=== PATIENT | female | born 1935 | race Caucasian/White ===

== ENCOUNTER 2017-03-30 18:44 | Emergency (ER) | payer OTHER ==
[~2017-03-30] VITALS: Ht 152.4 cm; Wt 94.3 kg
[~2017-03-30 18:44] MED LIST: AGG PO; ALUMSUS2 PO; ATEN-175 PO; ATV/1 PO; CHOLTAB3 PO; CLCC1250 PO; FELO5TAB PO; FURO20TA PO; LOSA1TAB38 PO; MCRK20 PO; MISCCAP80 PO; PRLSR20 PO; SIMV40TA2 PO
[2017-03-30 18:54] VITALS: TEMP 36.9; Ht 152.4 cm; Wt 94.3 kg
[2017-03-30] MEDS ORDERED: MoRPHine SULFATE 4 MG/ML 1 ML CARP\\VIAL IV STA (19:12)
[2017-03-30] MEDS ORDERED: ONDANSETRON INJ 2 MG/ML 2 ML VIAL IV STA (19:12)
[2017-03-30 19:24] LABS: BASO % 0.5 %; BASO ABS # 0.05 K/uL (0-0.2); COMPLETE YES; EOS % 1.3 %; IG% 0.2 %; LYMPH % 27.8 %; LYMPH ABS # 2.87 K/uL (1.2-3.4); MEAN CELL VOLUME 92.9 fL (80-100); MEAN CORPUSCULAR HEMOGLOBIN 31.2 pg (25-34); MEAN CORPUSCULAR HGB CONC 33.6 g/dl (32-36); MEAN PLATELET VOLUME 10.1 fL (7.4-10.4); MONO % 7.5 %; NEUT % 62.7 %; PLATELET COUNT 280 K/uL (130-400); RED BLOOD COUNT 4.52 M/uL (4.2-5.4); WHITE BLOOD COUNT 10.33 K/uL (4.8-10.8)
[2017-03-30 19:29] LABS: URINE APPEARANCE CLEAR (CLEAR); URINE BILIRUBIN NEG (NEG); URINE COLOR YELLOW; URINE EPITHELIAL CELL AUTO >30 /lpf (0-5); URINE NITRITE NEG (NEG); URINE SPECIFIC GRAVITY 1.024 (1.000-1.030); UROBILINOGEN NEG (NEG)
[2017-03-30 19:31] LABS: ALT/SGPT 15 U/L (12-78); AST/SGOT 17 U/L (15-37); BLOOD UREA NITROGEN 18 mg/dl (7-18); BUN/CREATININE RATIO 14.7 (10-20); CALCIUM 9.8 mg/dl (8.5-10.1); CARBON DIOXIDE 26 mmol/L (21-32); CHLORIDE 101 mmol/L (98-107); GLUCOSE 135 mg/dl (70-99); POTASSIUM 3.6 mmol/L (3.5-5.1); SODIUM 135 mmol/L (136-145)
[2017-03-30 19:34] LABS: ALKALINE PHOSPHATASE 58 U/L (45-117)
[2017-03-30 19:35] LABS: MANUAL MICROSCOPIC REQUIRED? NO; REVIEW REQ? NO
[2017-03-30] MEDS ORDERED: OYST500T47 PO (19:41)
[2017-03-30] MEDS ORDERED: POTA20TA13 PO (19:44)
[2017-03-30] MEDS ORDERED: CHOLTAB11 PO (19:50)
--- NOTE | 2017-03-30 20:21 | DIAGNOSTIC IMAGING REPORT ---
ABD/PELVIS WITHOUT FOR STONE CLINICAL HISTORY: 81 years-old Female presenting with abd pain/urniary symptoms eval for stone/obstruction. TECHNIQUE: Multidetector CT of the abdomen and pelvis was performed without the use of intravenous contrast. IV contrast: None. A dose lowering technique was used consistent with the principles of ALARA (as low as reasonably achievable). COMPARISON: 03/10/2016. CT DOSE (mGy.cm): The estimated cumulative dose is 1430.35 mGy.cm. FINDINGS: H[employer] Consultant topogram: Unremarkable. Lung bases: Large hiatal hernia unchanged in configuration. No evidence of volvulus. Lung bases otherwise clear. Left atrial enlargement of the heart. Coronary artery calcification. No pericardial or pleural effusion. Liver: Macronodular contour of the liver, not significantly changed from prior and possibly suggestive of cirrhosis. Normal density. Biliary: No gross biliary ductal dilatation allowing for noncontrast technique. Gallbladder contains gallstones. Pancreas: Mild to moderate parenchymal atrophy. Spleen: Normal. Adrenal glands: Normal. Kidneys and ureters: Normal. No hydronephrosis. Normal ureters. Bladder: Incompletely evaluated secondary to underdistention. Pelvic organs: Uterus and ovaries normal. Bowel: Normal. No bowel obstruction. Large hiatal hernia. Peritoneal cavity: No free fluid or intraperitoneal gas. Vasculature: Atherosclerosis of the normal caliber abdominal aorta. Lymph nodes: No gross lymphadenopathy allowing for noncontrast technique. Abdominal wall: Normal. Musculoskeletal: Degenerative changes of the spine. Degenerative changes of the sacroiliac joints and pubic symphysis also noted. IMPRESSION: 1. No nephrolithiasis. No hydronephrosis. 2. Nodular contour of the liver suggestive of cirrhosis. 3. Cholelithiasis. No evidence of cholecystitis. 4. Large hiatal hernia. 5. Left atrial enlargement. Electronically signed by: Modesto Miller M.D. 03/30/2017 8:20 PM Dictated Date/Time: 03/30/2017 8:14 PM
[2017-03-30] MEDS ORDERED: SULFAMETHOXAZOLE/TRIMETHOPRIM DS 800/160MG TAB PO STA (20:27)
[2017-03-30] MEDS ORDERED: SULF800T23 PO (20:52)
[2017-03-30 20:57] VITALS: BP 136/66; PULSE 78; O2SAT 94
[2017-03-30] MEDS ORDERED: SEPTRA DS HOME PACK 1 EA VIAL PO ONE (21:00)
--- NOTE | 2017-03-30 23:58 | EMERGENCY ROOM VISIT NOTE ---
History Report prepared by Olamide: Hilda Madrid Under the Supervision of: Dr. Francesco Rothman M.D. First contact with patient: 19:01 Chief Complaint: URINARY SYMPTOMS Stated Complaint: ABDOMINAL PAIN/URINARY SX Nursing Triage Summary: dysuria, frequent urge, rectal and vaginal burining started at 0400 with associated nausea, negative vomiting, loose stoos. History of Present Illness The patient is an 81 year old female who presents to the Emergency Room with complaints of an episode of lower abdominal pain starting 19 hours ago. The patient states that the pain feels like cramping. She reports that she feels like she has to urinate all the time and when she does urinate, it hughes. The patient states that when she makes a bowel movement it feels like her whole stomach is falling out. She denies any fever. She notes that she has nausea, but no vomiting. She notes she has just been dry heaving. The patient denies diarrhea. Source of History: patient Onset: 19 hours ago Position: abdomen (lower) Quality: cramping Timing: other (episode) Modifying Factors (Worsening): other (bowel movements) Associated Symptoms: + nausea, + urinary symptoms, No fevers, No vomiting, No diarrhea Note: The patient complains of dry heaving. Review of Systems See HPI for pertinent positives & negatives. A total of 10 systems reviewed and were otherwise negative. 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 (8) MAL KRISTEN SIGMOID COLON (9) NONRUPT CEREBRAL ANEURYM (10) PERSONAL HX OF TIA,& CEREBRAL INFARCTION W/OUT RES DEFICITS Family History Noncontribuatry due to age Social History Smoking Status: Never Smoker Alcohol Use: occasionally Drug Use: none Marital Status: Occupation Status: retired Current/Historical Medications Scheduled Aluminum/Magnesium/Simeth (Maalox Max Susp), 5 ML PO PRN Aspirin-Dipyridamole 25MG/200MG (Aggrenox 200MG/25MG), 1 CAP PO BID Atenolol (Tenormin), 100 MG PO HS Cholecalciferol (D-5000), 5,000 UNITS PO DAILY Felodipine (Plendil), 5 MG PO DAILY Furosemide (Lasix), 20 MG PO DAILY Losartan Potassium (Cozaar), 100 MG PO DAILY Omeprazole (Prilosec), 20 MG PO HS Oyster Shell (Calcium), 500 MG PO DAILY Potassium Chloride Microencaps (Potassium Chloride Er), 40 MEQ PO DAILY Probiotic Product (Probiotic), 1 CAP PO DAILY Simvastatin (Zocor), 40 MG PO HS Sulfa/Trimethoprim (Bactrim Ds 800MG/160MG), 1 TAB PO BID Scheduled PRN Lorazepam (Ativan), 1 MG PO TID PRN for Anxiety Allergies Coded Allergies: Hydralazine (Verified Allergy, Unknown, HYPOTENSION, 03/30/17) Lactose Intolerance (Verified Adverse Reaction, Mild, GI UPSET, 03/30/17) Physical Exam Vital Signs Date Time Temp Pulse Resp B/P (MAP) Pulse Ox O2 Delivery O2 Flow Rate FiO2 03/30/17 20:57 78 18 136/66 94 03/30/17 20:00 74 20 138/66 94 03/30/17 18:54 36.9 84 16 149/73 97 Room Air Physical Exam Constitutional: Vital signs reviewed. Eyes: Pupils are equal round reactive to light. Conjunctiva are noninjected. ENT: Pharynx is clear without erythema or exudate. Mucous membranes are moist. Neck supple without meningeal signs. Respiratory: Clear to auscultation bilaterally. Breath sounds are equal bilaterally. Cardiovascular: Regular rate and rhythm. No rubs or gallops. GI: Soft, nondistended. Diffuse tenderness without guarding. Bowel sounds are present. Musculoskeletal: No peripheral edema. No lower extremity tenderness. Integumentary: No cyanosis. Neurological: The patient is awake and alert. No focal deficits. Psychiatric: Normal affect. Medical Decision & Procedures ER Provider Diagnostic Interpretation: Radiology results as stated below per my review and the radiologist's interpretation: ABD/PELVIS WITHOUT FOR STONE CLINICAL HISTORY: 81 years-old Female presenting with abd pain/urniary symptoms eval for stone/obstruction. TECHNIQUE: Multidetector CT of the abdomen and pelvis was performed without the use of intravenous contrast. IV contrast: None. A dose lowering technique was used consistent with the principles of ALARA (as low as reasonably achievable). COMPARISON: 03/10/2016. CT DOSE (mGy.cm): The estimated cumulative dose is 1430.35 mGy.cm. FINDINGS: Manager Development topogram: Unremarkable. Lung bases: Large hiatal hernia unchanged in configuration. No evidence of volvulus. Lung bases otherwise clear. Left atrial enlargement of the heart. Coronary artery calcification. No pericardial or pleural effusion. Liver: Macronodular contour of the liver, not significantly changed from prior and possibly suggestive of cirrhosis. Normal density. Biliary: No gross biliary ductal dilatation allowing for noncontrast technique. Gallbladder contains gallstones. Pancreas: Mild to moderate parenchymal atrophy. Spleen: Normal. Adrenal glands: Normal. Kidneys and ureters: Normal. No hydronephrosis. Normal ureters. Bladder: Incompletely evaluated secondary to underdistention. Pelvic organs: Uterus and ovaries normal. Bowel: Normal. No bowel obstruction. Large hiatal hernia. Peritoneal cavity: No free fluid or intraperitoneal gas. Vasculature: Atherosclerosis of the normal caliber abdominal aorta. Lymph nodes: No gross lymphadenopathy allowing for noncontrast technique. Abdominal wall: Normal. Musculoskeletal: Degenerative changes of the spine. Degenerative changes of the sacroiliac joints and pubic symphysis also noted. IMPRESSION: 1. No nephrolithiasis. No hydronephrosis. 2. Nodular contour of the liver suggestive of cirrhosis. 3. Cholelithiasis. No evidence of cholecystitis. 4. Large hiatal hernia. 5. Left atrial enlargement. Electronically signed by: Modesto Miller M.D. 03/30/2017 8:20 PM Dictated Date/Time: 03/30/2017 8:14 PM Laboratory Results 03/30/17 00:00 Red Blood Count 4.52, Mean Corpuscular Volume 92.9, Mean Corpuscular Hemoglobin 31.2, Mean Corpuscular Hemoglobin Concent 33.6, Mean Platelet Volume 10.1, Neutrophils (%) (Auto) 62.7, Lymphocytes (%) (Auto) 27.8, Monocytes (%) (Auto) 7.5, Eosinophils (%) (Auto) 1.3, Basophils (%) (Auto) 0.5, Neutrophils # (Auto) 6.49, Lymphocytes # (Auto) 2.87, Monocytes # (Auto) 0.77, Eosinophils # (Auto) 0.13, Basophils # (Auto) 0.05 03/30/17 00:00 Test 8/26/17 00:00 White Blood Count 10.33 K/uL (4.8-10.8) Red Blood Count 4.52 M/uL (4.2-5.4) Hemoglobin 14.1 g/dL (12.0-16.0) Hematocrit 42.0 % (37-47) Mean Corpuscular Volume 92.9 fL (80-100) Mean Corpuscular Hemoglobin 31.2 pg (25-34) Mean Corpuscular Hemoglobin Concent 33.6 g/dl (32-36) Platelet Count 280 K/uL (130-400) Mean Platelet Volume 10.1 fL (7.4-10.4) Neutrophils (%) (Auto) 62.7 % Lymphocytes (%) (Auto) 27.8 % Monocytes (%) (Auto) 7.5 % Eosinophils (%) (Auto) 1.3 % Basophils (%) (Auto) 0.5 % Neutrophils # (Auto) 6.49 K/uL (1.4-6.5) Lymphocytes # (Auto) 2.87 K/uL (1.2-3.4) Monocytes # (Auto) 0.77 K/uL (0.11-0.59) Eosinophils # (Auto) 0.13 K/uL (0-0.5) Basophils # (Auto) 0.05 K/uL (0-0.2) RDW Standard Deviation 44.0 fL (36.4-46.3) RDW Coefficient of Variation 12.9 % (11.5-14.5) Immature Granulocyte % (Auto) 0.2 % Immature Granulocyte # (Auto) 0.02 K/uL (0.00-0.02) Urine Color YELLOW Urine Appearance CLEAR (CLEAR) Urine pH 5.0 (4.5-7.5) Urine Specific [place] 1.024 (1.000-1.030) Urine Protein NEG (NEG) Urine Glucose (UA) NEG (NEG) Urine Ketones NEG (NEG) Urine Occult Blood NEG (NEG) Urine Nitrite NEG (NEG) Urine Bilirubin NEG (NEG) Urine Urobilinogen NEG (NEG) Urine Leukocyte Esterase MODERATE (NEG) Urine WBC (Auto) >30 /hpf (0-5) Urine RBC (Auto) 0-4 /hpf (0-4) Urine Hyaline Casts (Auto) 1-5 /lpf (0-5) Urine Epithelial Cells (Auto) >30 /lpf (0-5) Urine Bacteria (Auto) NEG (NEG) Anion Gap 8.0 mmol/L (3-11) Est Creatinine Clear Calc Drug Dose 36.5 ml/min Estimated GFR () 48.4 Estimated GFR (Non- 41.8 BUN/Creatinine Ratio 14.7 (10-20) Calcium Level 9.8 mg/dl (8.5-10.1) Total Bilirubin 0.4 mg/dl (0.2-1) Direct Bilirubin < 0.1 mg/dl (0-0.2) Aspartate Amino Transf (AST/SGOT) 17 U/L (15-37) Alanine Aminotransferase (ALT/SGPT) 15 U/L (12-78) Alkaline Phosphatase 58 U/L (45-117) Total Protein 8.2 gm/dl (6.4-8.2) Albumin 3.5 gm/dl (3.4-5.0) Lipase 85 U/L (73-393) Laboratory results as reviewed by me. Medications Administered Medications (Trade) Dose Ordered Sig/Cornelio Route Start Time Stop Time Status Last Admin Dose Admin Morphine Sulfate (MoRPHine SULFATE INJ) 4 mg ONE STAT IV 03/30/17 19:12 03/30/17 19:13 DC 03/30/17 19:23 4 MG Ondansetron HCl (Zofran Inj) 4 mg NOW STAT IV 03/30/17 19:12 03/30/17 19:13 DC 03/30/17 19:22 4 MG Trimethoprim/ Sulfamethoxazole (Septra Ds 800/ 160MG Tab) 1 tab NOW STAT PO 03/30/17 20:27 03/30/17 20:29 DC 03/30/17 20:41 1 TAB Trimethoprim/ Sulfamethoxazole (Sulfameth/ Trimeth Ds 800/ 160MG Home Pack) 1 homepack UD ONCE PO 03/30/17 21:00 03/30/17 21:01 DC 03/30/17 21:04 1 HOMEPACK ED Course 1907: The patient was evaluated in room A10. A complete history and physical exam was performed. 1911: Ordered Zofran Inj 4 mg IV, Morphine Sulfate 4 mg IV. 2026: Ordered Trimethoprim/ Sulfamethoxazole 1 tab PO. 2049: Upon reevaluation, the patient appeared to have improvement of her symptoms. I discussed tonight's test results and incidental findings on CT with the patient. She verbalized agreement of the treatment plan and will follow up with her PCP. The patient was discharged home. 2100: Ordered Trimethoprim/ Sulfamethoxazole 1 homepack PO. Medical Decision This is an 81-year-old female who presents with urinary symptoms and abdominal pain. Differential diagnosis includes kidney stone, hydronephrosis, UTI, pyelonephritis, bowel obstruction. I did perform a limited focused review of portions of the patient's old chart on the electronic medical record. The patient has had no recent pertinent visits to this hospital. I did evaluate the patient as noted above. She is presenting with abdominal pain and urinary symptoms. IV access was established. I did treat the patient with IV morphine and Zofran. I did order and personally review the patient's urinalysis as described above. A urine culture was sent. I did order and review the patient's blood work as noted in the electronic medical record. I did order a CT of the abdomen and pelvis. I did review the images myself as well as the radiology report as described above. She has no evidence of acute abnormality on CT scanning. She did have some incidental findings which I discussed with her. I did reassess the patient and she states she is feeling much better. I did recommend very close follow up with her physician. She was discharged with a prescription for Bactrim and given her first dose here as well as a home pack. She was given return instructions as outlined below. Medication Reconcilliation Current Medication List: was personally reviewed by me Blood Pressure Screening Patient's blood pressure: Elevated blood pressure Impression Primary Impression: Generalized abdominal pain Additional Impression: UTI (urinary tract infection) Scribe Attestation The scribe's documentation has been prepared under my direct and personally reviewed by me in its entirety. I confirm that the note above accurately reflects all work, treatment, procedures, and medical decision making performed by me. Departure Information Dispostion Home / Self-Care Prescriptions Sulfa/Trimethoprim (Bactrim Ds 800MG/160MG) Tab 1 TAB PO BID, #12 TAB Prov: Francesco Rothman M.D. 03/30/17 Referrals Otto Dolan M.D. (PCP) Forms HOME CARE DOCUMENTATION FORM, IMPORTANT VISIT INFORMATION Patient Instructions My [facility] Additional Instructions You have been examined and treated today on an emergency basis only. This is not a substitute for, or an effort to provide, complete comprehensive medical care. It is impossible to recognize and treat all injuries or illnesses in a single emergency department visit. It is therefore important that you follow up closely with your physician within 48 hours. Call as soon as possible for an appointment. Return for worsening symptoms or if you develop fever or any other concerning symptoms. Problem Qualifiers Additional Impression: UTI (urinary tract infection) Urinary tract infection type: acute cystitis Hematuria presence: without hematuria Qualified Codes: N30.00 - Acute cystitis without hematuria
== END 2017-03-30 21:21 | disposition home or self-care (01) ==
LOC: EDBD 18:44 → C.EDA 18:46
DX: R10.84 Generalized abdominal pain (principal); N39.0 Urinary tract infection, site not specified; I12.9 Hypertensive chronic kidney disease with stage 1 through stage 4 chronic kidney disease, or unspecified chronic kidney disease; N18.3 Chronic kidney disease, stage 3 (moderate); K21.9 Gastro-esophageal reflux disease without esophagitis; K56.60 Unspecified intestinal obstruction; Z85.038 Personal history of other malignant neoplasm of large intestine; Z86.73 Personal history of transient ischemic attack (TIA), and cerebral infarction without residual deficits; Z79.82 Long term (current) use of aspirin; Z79.899 Other long term (current) drug therapy; Z88.8 Allergy status to other drugs, medicaments and biological substances; Z91.011 Allergy to milk products

== ENCOUNTER 2017-04-08 21:41 | Emergency (ER) | payer OTHER ==
[~2017-04-08] VITALS: Ht 157.5 cm; Wt 88.0 kg
[~2017-04-08 21:41] MED LIST changes: +CHOLTAB11 PO; -CHOLTAB3 PO; -CLCC1250 PO; -MCRK20 PO; +OYST500T47 PO; +POTA20TA13 PO; +SULF800T23 PO
[2017-04-08 21:44] VITALS: TEMP 36.5; Ht 157.5 cm; Wt 88.0 kg
[2017-04-08] MEDS ORDERED: ONDANSETRON INJ 2 MG/ML 2 ML VIAL IV STA (21:57)
--- NOTE | 2017-04-08 22:03 | EMERGENCY ROOM VISIT NOTE ---
History Report prepared by Leoibe: Lacie Byrd Under the Supervision of: Dr. Pardeep Del Valle D.O. First contact with patient: 21:50 Chief Complaint: ABDOMINAL PAIN Stated Complaint: FACE & NECK & DOWN, BOTH ARMS BURNING, NAUSEATED History of Present Illness The patient is a 81 year old female who presents to the Emergency Room with complaints of constant abdominal pain starting yesterday. The patient also notes that she has burning down her arms and on her face. She also has neck pain and denies any pain alleviating factors. She was seen in the ED on 03/31/17 for a bladder infection and was put on an Bactrim. The patient has a history of anxiety, a hiatal hernia, and gallstones. Source of History: patient Onset: yesterday Position: abdomen Timing: constant Associated Symptoms: No neck pain Note: Pt notes burning down arms and on face. Review of Systems See HPI for pertinent positives and negatives. A total of ten systems were reviewed and were otherwise negative. 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 (13) PERSONAL HX OF TIA,& CEREBRAL INFARCTION W/OUT RES DEFICITS Family History Noncontribuatry due to age Social History Smoking Status: Never Smoker Alcohol Use: occasionally Drug Use: none Marital Status: Occupation Status: retired Current/Historical Medications Scheduled Aluminum/Magnesium/Simeth (Maalox Max Susp), 5 ML PO PRN Aspirin-Dipyridamole 25MG/200MG (Aggrenox 200MG/25MG), 1 CAP PO BID Atenolol (Tenormin), 100 MG PO HS Cholecalciferol (D-5000), 5,000 UNITS PO DAILY Felodipine (Plendil), 5 MG PO DAILY Furosemide (Lasix), 20 MG PO DAILY Losartan Potassium (Cozaar), 100 MG PO DAILY [place]-3 Fatty Acids ([place] 3), 1 CAP PO DAILY Omeprazole (Prilosec), 20 MG PO HS Oyster Shell (Calcium), 500 MG PO DAILY Potassium Chloride Microencaps (Potassium Chloride Er), 40 MEQ PO DAILY Simvastatin (Zocor), 40 MG PO HS Scheduled PRN Lorazepam (Ativan), 1 MG PO TID PRN for Anxiety Allergies Coded Allergies: Hydralazine (Verified Allergy, Unknown, HYPOTENSION, 04/08/17) Lactose Intolerance (Verified Adverse Reaction, Mild, GI UPSET, 04/08/17) Physical Exam Vital Signs Date Time Temp Pulse Resp B/P (MAP) Pulse Ox O2 Delivery O2 Flow Rate FiO2 04/08/17 22:59 125/60 04/08/17 22:41 56 19 96 04/08/17 22:26 57 20 95 04/08/17 22:12 59 04/08/17 22:11 60 17 98 04/08/17 22:10 125/60 04/08/17 22:10 95 Room Air 04/08/17 21:44 36.5 64 20 138/85 97 Room Air Physical Exam GENERAL: Awake, alert, anxious-appearing, in no distress HENT: Normocephalic, atraumatic. Oropharynx unremarkable. EYES: Normal conjunctiva. Sclera non-icteric. NECK: Supple. No nuchal rigidity. FROM. No JVD. RESPIRATORY: Clear to auscultation. CARDIAC: Regular rate, normal rhythm. Extremities warm and well perfused. Pulses equal. ABDOMEN: Soft, non-distended. No tenderness to palpation. No rebound or guarding. No masses. RECTAL: Deferred. MUSCULOSKELETAL: Chest examination reveals no tenderness. The back is symmetrical on inspection without obvious abnormality. There is no CVA tenderness to palpation. No joint edema. LOWER EXTREMITIES: Calves are equal size bilaterally and non-tender. No edema. No discoloration. NEURO: Normal sensorium. No sensory or motor deficits noted. SKIN: No rash or jaundice noted. Medical Decision & Procedures Laboratory Results 04/08/17 22:08 Red Blood Count 4.43, Mean Corpuscular Volume 92.8, Mean Corpuscular Hemoglobin 31.4, Mean Corpuscular Hemoglobin Concent 33.8, Mean Platelet Volume 9.7, Neutrophils (%) (Auto) 72.6, Lymphocytes (%) (Auto) 16.8, Monocytes (%) (Auto) 9.0, Eosinophils (%) (Auto) 0.8, Basophils (%) (Auto) 0.6, Neutrophils # (Auto) 7.86, Lymphocytes # (Auto) 1.82, Monocytes # (Auto) 0.98, Eosinophils # (Auto) 0.09, Basophils # (Auto) 0.06 04/08/17 22:08 Test 04/08/17 22:08 White Blood Count 10.83 K/uL (4.8-10.8) Red Blood Count 4.43 M/uL (4.2-5.4) Hemoglobin 13.9 g/dL (12.0-16.0) Hematocrit 41.1 % (37-47) Mean Corpuscular Volume 92.8 fL (80-100) Mean Corpuscular Hemoglobin 31.4 pg (25-34) Mean Corpuscular Hemoglobin Concent 33.8 g/dl (32-36) Platelet Count 282 K/uL (130-400) Mean Platelet Volume 9.7 fL (7.4-10.4) Neutrophils (%) (Auto) 72.6 % Lymphocytes (%) (Auto) 16.8 % Monocytes (%) (Auto) 9.0 % Eosinophils (%) (Auto) 0.8 % Basophils (%) (Auto) 0.6 % Neutrophils # (Auto) 7.86 K/uL (1.4-6.5) Lymphocytes # (Auto) 1.82 K/uL (1.2-3.4) Monocytes # (Auto) 0.98 K/uL (0.11-0.59) Eosinophils # (Auto) 0.09 K/uL (0-0.5) Basophils # (Auto) 0.06 K/uL (0-0.2) RDW Standard Deviation 44.5 fL (36.4-46.3) RDW Coefficient of Variation 13.1 % (11.5-14.5) Immature Granulocyte % (Auto) 0.2 % Immature Granulocyte # (Auto) 0.02 K/uL (0.00-0.02) Prothrombin Time 10.1 SECONDS (9.0-12.0) Prothromb Time International Ratio 0.9 (0.9-1.1) Activated Partial Thromboplast Time 27.3 SECONDS (21.0-31.0) Partial Thromboplastin Ratio 1.1 Anion Gap 7.0 mmol/L (3-11) Est Creatinine Clear Calc Drug Dose 27.4 ml/min Estimated GFR () 34.2 Estimated GFR (Non- 29.5 BUN/Creatinine Ratio 12.6 (10-20) Calcium Level 9.6 mg/dl (8.5-10.1) Magnesium Level 2.1 mg/dl (1.8-2.4) Total Bilirubin 0.3 mg/dl (0.2-1) Direct Bilirubin 0.1 mg/dl (0-0.2) Aspartate Amino Transf (AST/SGOT) 15 U/L (15-37) Alanine Aminotransferase (ALT/SGPT) 12 U/L (12-78) Alkaline Phosphatase 57 U/L (45-117) Total Protein 7.8 gm/dl (6.4-8.2) Albumin 3.5 gm/dl (3.4-5.0) Lipase 134 U/L (73-393) Thyroid Stimulating Hormone (TSH) 2.880 uIu/ml (0.300-4.500) Laboratory results reviewed by me Medications Administered Medications (Trade) Dose Ordered Sig/Cornelio Route Start Time Stop Time Status Last Admin Dose Admin Ondansetron HCl (Zofran Inj) 4 mg NOW STAT IV 04/08/17 21:57 04/08/17 21:58 DC 04/08/17 22:16 4 MG ECG Indication: abdominal pain Rate (beats per minute): 64 Rhythm: normal sinus Findings: no acute ischemic change, other (Normal interval, normal axis) ED Course 2155: The patient was evaluated in room C11B. A complete history and physical exam was performed. 2156: Zofran Inj 4 mg IV. 2304: I reevaluated the patient. Discussed results and discharge instructions: She verbalized understanding and agreement. The patient is ready for discharge. Medical Decision Differential diagnosis includes:metabolic derangement, medication reaction, allergic reaction to sulfa, and anxiety. Resting in no distress; discussed veal with pt and family; needs f/u 1 week for repeat Na, states she's been drinking a lot of water; Medication Reconcilliation Current Medication List: was personally reviewed by me Blood Pressure Screening Patient's blood pressure: Normal blood pressure Blood pressure disposition: Did not require urgent referral Impression Primary Impression: Facial paresthesia Additional Impression: Hyponatremia Scribe Attestation The scribe's documentation has been prepared under my direction and personally reviewed by me in its entirety. I confirm that the note above accurately reflects all work, treatment, procedures, and medical decision making performed by me. Departure Information Dispostion Home / Self-Care Referrals No Doctor, Assigned (PCP) Forms HOME CARE DOCUMENTATION FORM, IMPORTANT VISIT INFORMATION Patient Instructions ED Hyponatremia, ED Paraesthesias, My [facility] Additional Instructions Get repeat Sodium level in 1 week with follow up with your PCP Problem Qualifiers
[2017-04-08 22:10] VITALS: O2SAT 95
[2017-04-08 22:16] LABS: BASO % 0.6 %; BASO ABS # 0.06 K/uL (0-0.2); COMPLETE YES; EOS % 0.8 %; HEMATOCRIT 41.1 % (37-47); IG% 0.2 %; LYMPH % 16.8 %; LYMPH ABS # 1.82 K/uL (1.2-3.4); MEAN CELL VOLUME 92.8 fL (80-100); MEAN CORPUSCULAR HEMOGLOBIN 31.4 pg (25-34); MEAN CORPUSCULAR HGB CONC 33.8 g/dl (32-36); MEAN PLATELET VOLUME 9.7 fL (7.4-10.4); NEUT % 72.6 %; PLATELET COUNT 282 K/uL (130-400); RED BLOOD COUNT 4.43 M/uL (4.2-5.4); WHITE BLOOD COUNT 10.83 K/uL (4.8-10.8)
[2017-04-08 22:26] LABS: INR 0.9 (0.9-1.1); PARTIAL THROMBOPLASTIN RATIO 1.1; PROTHROMBIN TIME (PATIENT) 10.1 SECONDS (9.0-12.0)
[2017-04-08 22:35] LABS: BUN/CREATININE RATIO 12.6 (10-20); CALCIUM 9.6 mg/dl (8.5-10.1); CREATININE 1.6 mg/dl (0.60-1.20); MAGNESIUM 2.1 mg/dl (1.8-2.4); POTASSIUM 4.6 mmol/L (3.5-5.1)
[2017-04-08] MEDS ORDERED: OMEG12006 PO (22:38)
[2017-04-08 22:46] LABS: THYROID STIMULATING HORMONE 2.88 uIu/ml (0.300-4.500)
[2017-04-08 23:22] LABS: URINE APPEARANCE CLEAR (CLEAR); URINE BILIRUBIN NEG (NEG); URINE COLOR YELLOW; URINE EPITHELIAL CELL AUTO >30 /lpf (0-5); URINE NITRITE NEG (NEG); URINE PH 5.5 (4.5-7.5); UROBILINOGEN NEG (NEG)
[2017-04-08 23:28] LABS: MANUAL MICROSCOPIC REQUIRED? NO; REVIEW REQ? NO
[2017-04-08 23:31] VITALS: BP 146/64; PULSE 57; O2SAT 98
== END 2017-04-08 23:33 | disposition home or self-care (01) ==
LOC: C.EDB 21:43 → C.EDC 23:33
DX: R20.2 Paresthesia of skin (principal); E87.1 Hypo-osmolality and hyponatremia; I12.9 Hypertensive chronic kidney disease with stage 1 through stage 4 chronic kidney disease, or unspecified chronic kidney disease; N18.3 Chronic kidney disease, stage 3 (moderate); K21.9 Gastro-esophageal reflux disease without esophagitis; K80.20 Calculus of gallbladder without cholecystitis without obstruction; K58.9 Irritable bowel syndrome, unspecified; F41.9 Anxiety disorder, unspecified; Z86.73 Personal history of transient ischemic attack (TIA), and cerebral infarction without residual deficits; Z86.018 Personal history of other benign neoplasm; Z79.82 Long term (current) use of aspirin; Z79.899 Other long term (current) drug therapy; Z88.8 Allergy status to other drugs, medicaments and biological substances; Z91.011 Allergy to milk products

== ENCOUNTER 2017-05-02 03:42 | Emergency (ER) | payer OTHER ==
[~2017-05-02] VITALS: Ht 157.5 cm; Wt 90.0 kg
[~2017-05-02 03:42] MED LIST changes: -MISCCAP80 PO; +OMEG12006 PO; -SULF800T23 PO
[2017-05-02 03:51] VITALS: TEMP 36.8; Ht 157.5 cm; Wt 90.0 kg
[2017-05-02] MEDS ORDERED: ONDANSETRON INJ 2 MG/ML 2 ML VIAL IV STA (03:55)
[2017-05-02] MEDS ORDERED: SODIUM CHLORIDE 0.9% 1000ML 1,000 ML IV ONE (04:00)
[2017-05-02] MEDS ORDERED: MoRPHine SULFATE 4 MG/ML 1 ML CARP\\VIAL IV ONE (04:00)
[2017-05-02 04:22] LABS: BASO % 0.5 %; BASO ABS # 0.03 K/uL (0-0.2); COMPLETE YES; EOS % 0.9 %; HEMATOCRIT 38.9 % (37-47); IG% 0.3 %; LYMPH % 21.5 %; LYMPH ABS # 1.42 K/uL (1.2-3.4); MEAN CELL VOLUME 91.3 fL (80-100); MEAN CORPUSCULAR HEMOGLOBIN 32.4 pg (25-34); MEAN CORPUSCULAR HGB CONC 35.5 g/dl (32-36); MEAN PLATELET VOLUME 9.8 fL (7.4-10.4); MONO % 8.5 %; NEUT % 68.3 %; PLATELET COUNT 247 K/uL (130-400); RED BLOOD COUNT 4.26 M/uL (4.2-5.4)
[2017-05-02] MEDS ORDERED: LORA-339 PO (04:29)
[2017-05-02 04:49] LABS: BUN/CREATININE RATIO 13.2 (10-20); CALCIUM 9.2 mg/dl (8.5-10.1); CREATININE 1.2 mg/dl (0.60-1.20); MAGNESIUM 2.1 mg/dl (1.8-2.4); POTASSIUM 3.3 mmol/L (3.5-5.1)
[2017-05-02 04:52] LABS: ALB/GLOB RATIO 0.8 (0.9-2)
[2017-05-02] MEDS ORDERED: PROMETHAZINE HCL INJ 12.5 MG in SODIUM CHLORIDE 0.9% 50ML 50 ML IV STA (05:25)
[2017-05-02 06:11] LABS: URINE APPEARANCE TURBID (CLEAR); URINE BILIRUBIN NEG (NEG); URINE COLOR DK YELLOW; URINE EPITHELIAL CELL AUTO >30 /lpf (0-5); URINE NITRITE NEG (NEG); URINE SPECIFIC GRAVITY 1.028 (1.000-1.030); UROBILINOGEN NEG (NEG); ZZUR CULT IF INDIC CLEAN CATCH YES
[2017-05-02 06:32] LABS: MANUAL MICROSCOPIC REQUIRED? NO; REVIEW REQ? YES
[2017-05-02] MEDS ORDERED: PROM25TA9 PO (06:53)
[2017-05-02 07:09] VITALS: BP 148/81; PULSE 55; O2SAT 92
--- NOTE | 2017-05-02 07:31 | DIAGNOSTIC IMAGING REPORT ---
GALLBLADDER-ABD LIMITED CLINICAL HISTORY: 81 years-old Female presenting with Post prandial abd pain. TECHNIQUE: Real-time grayscale and limited color Doppler ultrasound imaging of the abdomen limited to the right upper quadrant was performed. COMPARISON: CT from 03/30/2017. FINDINGS: Pancreas: Visualized portions of the pancreatic body grossly normal allowing for the presence of bowel gas. Liver: Normal echogenicity and echotexture. The liver measures 13.8 cm in maximal sagittal dimension. No sonographic evidence of hepatic mass. Main portal vein patent with normal directional flow. Biliary: No intrahepatic biliary ductal dilatation. Common bile duct measures up to 3 mm in diameter. Gallbladder: No evidence of gallstones, gallbladder wall thickening, gallbladder distention, or pericholecystic fluid or inflammatory change. Sonographic Delarosa's sign negative. Right kidney: Normal in appearance. No hydronephrosis. Ascites: None. IMPRESSION: Normal right upper quadrant ultrasound. Electronically signed by: Modesto Miller M.D. 05/02/2017 7:06 AM Dictated Date/Time: 05/02/2017 7:04 AM
--- NOTE | 2017-05-02 07:31 | DIAGNOSTIC IMAGING REPORT ---
KUB CLINICAL HISTORY: 81 years-old Female presenting with nausea and vomiting. TECHNIQUE: Single supine view of the abdomen was obtained. COMPARISON: 02/19/[address] from 03/30/2017. FINDINGS: Evaluation limited by exclusion of a portion of the lateral right abdomen. Mild gaseous distention of bowel in the right mid abdomen, likely small bowel loops. No convincing evidence of obstruction. No gross pneumoperitoneum. Mild stool burden in the right and transverse colon. Numerous pelvic phleboliths. No convincing evidence of calcification over the renal shadows. Degenerative changes of the spine. Degenerative changes of the pubic symphysis. IMPRESSION: 1. No convincing evidence of bowel obstruction or ileus. No free air. Electronically signed by: Modesto Miller M.D. 05/02/2017 7:11 AM Dictated Date/Time: 05/02/2017 7:09 AM
--- NOTE | 2017-05-02 22:45 | EMERGENCY ROOM VISIT NOTE ---
History First contact with patient: 03:49 Chief Complaint: ABDOMINAL PAIN Stated Complaint: ABDOMINAL PAIN Nursing Triage Summary: Patient arrived BLS for evaluation of abdominal pain and nausea. Patient reports it started after supper last evening and she felt somewhat better before bed. Patient then woke approx 0200 dry heaving and pain in abdomen. Patient seen here around for same thing. History of Present Illness The patient is a 81 year old female who presents to the Emergency Room with complaints of generalized upper abdominal pain with nausea and vomiting for the past few hours. The patient states that she has had similar symptoms to this off and on for the past one to 2 months. She has been seen previously in this department with his complaint. She states that her symptoms always seem to worsen after eating, and then improves throughout the day. The patient has not had fever or chills. No chest pain or chest tightness. No dysuric symptoms. She does have a history colon surgery in the past. The patient's primary complaint is nausea, and she rates her overall discomfort 7/10. Review of Systems More than 10 systems were reviewed and otherwise negative with the exception of history of present illness. 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,& CEREBRAL INFARCTION W/OUT RES DEFICITS Family History Noncontribuatry due to age Social History Smoking Status: Never Smoker Alcohol Use: occasionally Drug Use: none Marital Status: Occupation Status: retired Current/Historical Medications Scheduled Aspirin-Dipyridamole 25MG/200MG (Aggrenox 200MG/25MG), 1 CAP PO BID Atenolol (Tenormin), 100 MG PO HS Cholecalciferol (D-5000), 5,000 UNITS PO DAILY Felodipine (Plendil), 5 MG PO DAILY Furosemide (Lasix), 20 MG PO DAILY Loratadine (Allergy Relief), 10 MG PO DAILY Losartan Potassium (Cozaar), 100 MG PO DAILY Wheeler-3 Fatty Acids (Wheeler 3), 1 CAP PO DAILY Omeprazole (Prilosec), 20 MG PO HS Oyster Shell (Calcium), 500 MG PO DAILY Potassium Chloride Microencaps (Potassium Chloride Er), 40 MEQ PO DAILY Simvastatin (Zocor), 40 MG PO HS Scheduled PRN Lorazepam (Ativan), 1 MG PO TID PRN for Anxiety Promethazine Hcl (Phenergan), 25 MG PO Q6H PRN for Nausea Physical Exam Vital Signs Date Time Temp Pulse Resp B/P (MAP) Pulse Ox O2 Delivery O2 Flow Rate FiO2 05/02/17 07:09 55 18 148/81 92 05/02/17 06:06 55 18 137/67 92 Room Air 05/02/17 03:51 36.8 74 20 142/90 95 Room Air Physical Exam VITALS: Vitals are noted on the nurse's note and reviewed by myself. Vital signs stable. GENERAL: Well-developed, well-nourished, white female, who is in no acute distress and resting comfortably. Patient is cooperative with the examination. HEART: Regular rate and rhythm without murmurs gallops or rubs. LUNGS: Clear to auscultation bilaterally without wheezes, rales or rhonchi. No retractions or accessory muscle use. ABDOMEN: Positive normal bowel sounds x 4. Soft with mild epigastric tenderness on palpation. No rebound or guarding. No distinct lower abdominal tenderness. No CVA tenderness. MUSCULOSKELETAL: No muscle atrophy, erythema, or edema noted. Full range of motion without joint tenderness in all extremities. Medical Decision & Procedures ER Provider Diagnostic Interpretation: KUB CLINICAL HISTORY: 81 years-old Female presenting with nausea and vomiting. TECHNIQUE: Single supine view of the abdomen was obtained. COMPARISON: 02/19/[address] from 03/30/2017. FINDINGS: Evaluation limited by exclusion of a portion of the lateral right abdomen. Mild gaseous distention of bowel in the right mid abdomen, likely small bowel loops. No convincing evidence of obstruction. No gross pneumoperitoneum. Mild stool burden in the right and transverse colon. Numerous pelvic phleboliths. No convincing evidence of calcification over the renal shadows. Degenerative changes of the spine. Degenerative changes of the pubic symphysis. IMPRESSION: 1. No convincing evidence of bowel obstruction or ileus. No free air. GALLBLADDER-ABD LIMITED CLINICAL HISTORY: 81 years-old Female presenting with Post prandial abd pain. TECHNIQUE: Real-time grayscale and limited color Doppler ultrasound imaging of the abdomen limited to the right upper quadrant was performed. COMPARISON: CT from 03/30/2017. FINDINGS: Pancreas: Visualized portions of the pancreatic body grossly normal allowing for the presence of bowel gas. Liver: Normal echogenicity and echotexture. The liver measures 13.8 cm in maximal sagittal dimension. No sonographic evidence of hepatic mass. Main portal vein patent with normal directional flow. Biliary: No intrahepatic biliary ductal dilatation. Common bile duct measures up to 3 mm in diameter. Gallbladder: No evidence of gallstones, gallbladder wall thickening, gallbladder distention, or pericholecystic fluid or inflammatory change. Sonographic Delarosa's sign negative. Right kidney: Normal in appearance. No hydronephrosis. Ascites: None. IMPRESSION: Normal right upper quadrant ultrasound. Laboratory Results 05/02/17 04:05 Red Blood Count 4.26, Mean Corpuscular Volume 91.3, Mean Corpuscular Hemoglobin 32.4, Mean Corpuscular Hemoglobin Concent 35.5, Mean Platelet Volume 9.8, Neutrophils (%) (Auto) 68.3, Lymphocytes (%) (Auto) 21.5, Monocytes (%) (Auto) 8.5, Eosinophils (%) (Auto) 0.9, Basophils (%) (Auto) 0.5, Neutrophils # (Auto) 4.51, Lymphocytes # (Auto) 1.42, Monocytes # (Auto) 0.56, Eosinophils # (Auto) 0.06, Basophils # (Auto) 0.03 05/02/17 04:05 Test 05/02/17 04:05 05/02/17 05:57 White Blood Count 6.60 K/uL (4.8-10.8) Red Blood Count 4.26 M/uL (4.2-5.4) Hemoglobin 13.8 g/dL (12.0-16.0) Hematocrit 38.9 % (37-47) Mean Corpuscular Volume 91.3 fL (80-100) Mean Corpuscular Hemoglobin 32.4 pg (25-34) Mean Corpuscular Hemoglobin Concent 35.5 g/dl (32-36) Platelet Count 247 K/uL (130-400) Mean Platelet Volume 9.8 fL (7.4-10.4) Neutrophils (%) (Auto) 68.3 % Lymphocytes (%) (Auto) 21.5 % Monocytes (%) (Auto) 8.5 % Eosinophils (%) (Auto) 0.9 % Basophils (%) (Auto) 0.5 % Neutrophils # (Auto) 4.51 K/uL (1.4-6.5) Lymphocytes # (Auto) 1.42 K/uL (1.2-3.4) Monocytes # (Auto) 0.56 K/uL (0.11-0.59) Eosinophils # (Auto) 0.06 K/uL (0-0.5) Basophils # (Auto) 0.03 K/uL (0-0.2) RDW Standard Deviation 43.1 fL (36.4-46.3) RDW Coefficient of Variation 13.0 % (11.5-14.5) Immature Granulocyte % (Auto) 0.3 % Immature Granulocyte # (Auto) 0.02 K/uL (0.00-0.02) Anion Gap 10.0 mmol/L (3-11) Est Creatinine Clear Calc Drug Dose 37.0 ml/min Estimated GFR () 48.4 Estimated GFR (Non- 41.8 BUN/Creatinine Ratio 13.2 (10-20) Calcium Level 9.2 mg/dl (8.5-10.1) Magnesium Level 2.1 mg/dl (1.8-2.4) Total Bilirubin 0.5 mg/dl (0.2-1) Aspartate Amino Transf (AST/SGOT) 16 U/L (15-37) Alanine Aminotransferase (ALT/SGPT) 19 U/L (12-78) Alkaline Phosphatase 48 U/L (45-117) Total Protein 7.3 gm/dl (6.4-8.2) Albumin 3.3 gm/dl (3.4-5.0) Globulin 4.0 gm/dl (2.5-4.0) Albumin/Globulin Ratio 0.8 (0.9-2) Lipase 82 U/L (73-393) Urine Color DK YELLOW Urine Appearance TURBID (CLEAR) Urine pH 5.0 (4.5-7.5) Urine Specific Haugen 1.028 (1.000-1.030) Urine Protein TRACE (NEG) Urine Glucose (UA) NEG (NEG) Urine Ketones 1+ (NEG) Urine Occult Blood NEG (NEG) Urine Nitrite NEG (NEG) Urine Bilirubin NEG (NEG) Urine Urobilinogen NEG (NEG) Urine Leukocyte Esterase SMALL (NEG) Urine WBC (Auto) 10-30 /hpf (0-5) Urine RBC (Auto) 0-4 /hpf (0-4) Urine Hyaline Casts (Auto) 5-10 /lpf (0-5) Urine Epithelial Cells (Auto) >30 /lpf (0-5) Urine Bacteria (Auto) NEG (NEG) Urine Crystals CALCIUM OXALATE (NONE Medications Administered Medications (Trade) Dose Ordered Sig/Cornelio Route Start Time Stop Time Status Last Admin Dose Admin Sodium Chloride 1,000 ml @ 999 mls/hr Q1H1M ONCE IV 05/02/17 04:00 05/02/17 05:00 DC 05/02/17 04:10 999 MLS/HR Morphine Sulfate (MoRPHine SULFATE INJ) 4 mg NOW ONCE IV 05/02/17 04:00 05/02/17 04:01 DC 05/02/17 04:10 4 MG Ondansetron HCl (Zofran Inj) 4 mg NOW STAT IV 05/02/17 03:55 05/02/17 03:57 DC 05/02/17 04:10 4 MG Promethazine HCl 12.5 mg/Sodium Chloride 50.5 ml @ 204 mls/hr NOW STAT IV 05/02/17 05:25 05/02/17 05:39 DC 05/02/17 05:45 204 MLS/HR ED Course Physical exam and history were performed. Nursing notes, EMR, and Medication List were personally reviewed. Patient appears to have nausea and vomiting with very mild epigastric abdominal discomfort. The patient does not appear toxic on examination. IV access was established and labs were obtained. The patient was hydrated with normal saline and given IV morphine and IV Zofran for comfort. She did require additional IV Phenergan to resolve her nausea. She has had recent CT scan of the abdomen and pelvis, and I did elect to perform plain films and ultrasound to help evaluate her symptoms. The patient's blood work is as above and was reviewed. She does not have a significantly elevated white blood cell count, significant anemia, bandemia, or electrolyte imbalance. Lipase and transaminases are nondiagnostic. X-ray does not show evidence of free air or obstructive process. Ultrasound was also without significant findings. Urine was contaminated and culture is pending. She does not have dysuria symptoms and I will await treatment until culture returns. On reevaluation the patient was very comfortable in her emergency department bed. Her nausea resolved after the IV Phenergan. I reexamined her abdomen, which continued with only very minimal epigastric discomfort. She certainly does not have evidence of peritonitis or exam consistent with acute surgical abdomen. The patient feels comfortable for discharge home, and I feel this is reasonable. I will give her a short course of Phenergan. She is evidently taking omeprazole as she does have a large hiatal hernia, and should continue this as well. The patient may need upper endoscopy to further evaluate her symptoms, or possibly evaluation by HIDA scan as much for her discomfort seems to come with food. The patient was pleased with this understanding. She was discharged home under care of her who is acting as the regional dedicated truck driver today. The chart was completed utilizing [employer] Speech Voice Recognition Software. Grammatical errors, random word insertions, pronoun errors, and incomplete sentences are an occasional consequence of this system due to software limitations, ambient noise, and hardware issues. Any formal questions or concerns about the content, text, or information contained within the body of this dictation should be directly addressed to the provider for clarification. . Medical Decision Differential diagnosis: Etiologies such as appendicitis, diverticulitis, PUD, biliary pathology, UTI, pancreatitis, obstruction, mesenteric ischemia, aortic pathology, infections, inflammatory bowel disease, renal colic, as well as others were entertained. Impression Primary Impression: Nausea and vomiting Departure Information Dispostion Home / Self-Care Condition GOOD Prescriptions Promethazine Hcl (Phenergan) 25 Mg Tab 25 MG PO Q6H Y for Nausea, #20 TAB Prov: Adin Kay PA-C 05/02/17 Forms HOME CARE DOCUMENTATION FORM, IMPORTANT VISIT INFORMATION Patient Instructions My [facility] Additional Instructions You were seen and evaluated today on an emergency basis only. This is not a substitute for, or an effort to provide, complete comprehensive medical care. It is not possible to recognize and treat all injuries or illnesses in a single emergency department visit. For this reason it is recommended that you followup with your primary care physician in the next 2-3 days for recheck of your condition. You may take Phenergan 25 mg every 6 hours as needed for nausea We recommend a soft food and liquid diet for the next 24-48 hours to help rest your stomach. You are welcome to return to the emergency department anytime with new, worsening, or concerning symptoms.
[2017-05-20] MEDS ORDERED: FELO5TAB PO (13:10)
[2017-05-20] MEDS ORDERED: PANT40TA PO (13:10)
[2017-05-20] MEDS ORDERED: LOSA1TAB38 PO (13:10)
[2017-05-20] MEDS ORDERED: OYST500T47 PO (13:10)
[2017-05-20] MEDS ORDERED: FURO-85 PO (13:10)
[2017-05-20] MEDS ORDERED: OMEG12006 PO (13:10)
[2017-05-20] MEDS ORDERED: SUCR5SUS PO (13:19)
[2017-05-20] MEDS ORDERED: METO-157 PO (13:20)
[2017-05-20] MEDS ORDERED: PROM25TA9 PO (13:22)
== END 2017-05-02 07:10 | disposition home or self-care (01) ==
LOC: EDBD 03:42 → C.EDA 03:43
DX: R11.2 Nausea with vomiting, unspecified (principal); F41.9 Anxiety disorder, unspecified; I12.9 Hypertensive chronic kidney disease with stage 1 through stage 4 chronic kidney disease, or unspecified chronic kidney disease; N18.3 Chronic kidney disease, stage 3 (moderate); K21.9 Gastro-esophageal reflux disease without esophagitis; I67.1 Cerebral aneurysm, nonruptured; Z85.038 Personal history of other malignant neoplasm of large intestine; Z86.73 Personal history of transient ischemic attack (TIA), and cerebral infarction without residual deficits; Z79.82 Long term (current) use of aspirin

== ENCOUNTER 2017-05-14 11:18 | Emergency (ER) | payer OTHER ==
[~2017-05-14] VITALS: Ht 167.6 cm; Wt 85.0 kg
[~2017-05-14 11:18] MED LIST changes: -ALUMSUS2 PO; +LORA-339 PO; +PROM25TA9 PO
[2017-05-14 11:20] VITALS: TEMP 36.6; Ht 167.6 cm; Wt 85.0 kg
[2017-05-14] MEDS ORDERED: NXM/40 PO (11:53)
[2017-05-14] MEDS ORDERED: ACET-1311 PO (11:53)
[2017-05-14] MEDS ORDERED: ZNTT/150 PO (11:53)
[2017-05-14] MEDS ORDERED: PANT1TAB48 PO (11:53)
[2017-05-14] MEDS ORDERED: ONDA4TAB46 PO (11:53)
[2017-05-14] MEDS ORDERED: METOCLOPRAMIDE HCL INJ 5 MG/ML 2 ML VIAL IV STA (12:36)
[2017-05-14] MEDS ORDERED: SODIUM CHLORIDE 0.9% 500ML 500 ML IV STA (12:36)
[2017-05-14] MEDS ORDERED: GI COCKTAIL PO STA (12:36)
[2017-05-14] MEDS ORDERED: LIDOCAINE HCL 2% VISC SOLN 20 ML UDC ONE (12:41)
[2017-05-14] MEDS ORDERED: ALUMINUM/MAGNESIUM SUSP 30 ML UDC ONE (12:41)
--- NOTE | 2017-05-14 12:58 | DIAGNOSTIC IMAGING REPORT ---
CHEST ONE VIEW PORTABLE CLINICAL HISTORY: 81 years-old Female presenting with epigastric pain. TECHNIQUE: Portable upright AP view of the chest was obtained. COMPARISON: 02/19/2015. FINDINGS: Atherosclerosis of aortic arch. Cardiac silhouette normal in size. Lungs and pleural spaces clear. Degenerative changes of the thoracic spine. Moderate hiatal hernia. IMPRESSION: 1. No acute cardiopulmonary disease. 2. Moderate hiatal hernia. Electronically signed by: Modesto Miller M.D. 05/14/2017 12:57 PM Dictated Date/Time: 05/14/2017 12:56 PM
[2017-05-14 13:04] LABS: BASO % 0.6 %; BASO ABS # 0.06 K/uL (0-0.2); COMPLETE YES; EOS % 0.4 %; HEMATOCRIT 40.9 % (37-47); IG% 0.4 %; LYMPH % 15.2 %; LYMPH ABS # 1.61 K/uL (1.2-3.4); MEAN CELL VOLUME 92.7 fL (80-100); MEAN CORPUSCULAR HEMOGLOBIN 32.4 pg (25-34); MEAN PLATELET VOLUME 10.6 fL (7.4-10.4); MONO % 9.9 %; NEUT % 73.5 %; PLATELET COUNT 248 K/uL (130-400); RED BLOOD COUNT 4.41 M/uL (4.2-5.4); WHITE BLOOD COUNT 10.62 K/uL (4.8-10.8)
[2017-05-14 13:21] LABS: URINE APPEARANCE CLEAR (CLEAR); URINE BILIRUBIN NEG (NEG); URINE COLOR YELLOW; URINE EPITHELIAL CELL AUTO >30 /lpf (0-5); URINE NITRITE NEG (NEG); URINE PH 6.5 (4.5-7.5); URINE SPECIFIC GRAVITY 1.018 (1.000-1.030); UROBILINOGEN NEG (NEG); ZZUR CULT IF INDIC CLEAN CATCH YES
[2017-05-14 13:22] LABS: MANUAL MICROSCOPIC REQUIRED? NO; REVIEW REQ? YES
[2017-05-14 13:36] LABS: ALKALINE PHOSPHATASE 52 U/L (45-117); ALT/SGPT 27 U/L (12-78); AST/SGOT 23 U/L (15-37); BLOOD UREA NITROGEN 12 mg/dl (7-18); BUN/CREATININE RATIO 9.3 (10-20); CALCIUM 9.7 mg/dl (8.5-10.1); CARBON DIOXIDE 25 mmol/L (21-32); CHLORIDE 100 mmol/L (98-107); GLUCOSE 110 mg/dl (70-99); POTASSIUM 3.9 mmol/L (3.5-5.1); SODIUM 133 mmol/L (136-145)
[2017-05-14] MEDS ORDERED: METO-157 PO (15:13)
--- NOTE | 2017-05-14 15:14 | EMERGENCY ROOM VISIT NOTE ---
History Report prepared by Olamide: Lenora Bhatti Under the Supervision of: Dr. Zan Christopher M.D. First contact with patient: 11:47 Chief Complaint: NAUSEA Stated Complaint: NOT EATING/DRINKING WELL, NAUSEA Nursing Triage Summary: pt has been here 4 times with the same thing of nausea and pain History of Present Illness The patient is an 81 year old white female with a past medical history of HTN, hyperlipidemia, GERD, gallstones, and a hiatal hernia who presents to the ED with a cc of waxing and waning nausea beginning 1 month ago. The patient has had burning epigastric pain radiating into her back for the past month. She has been seen in the ED and has followed up with her PCP numerous times for this issue. She had her medications changed from Prilosec to Protonix and she has started taking Nexium. She states that this is not helping. She has been unable to sleep due to her symptoms. Pt reports epigastric pain that she describes as burning and rates as a 9/10 in severity. Positive nausea. Negative fevers, chills, vomiting. The patient was scheduled for an endoscopy on 05/22. Family called this morning because the patient's symptoms were worse. They moved her endoscopy up to 05/17/17, but the patient states that she does not think that she can wait that long. She denies any significant cardiac history. She was recently on antibiotics for UTI. She had a BM this morning that was normal. Source of History: patient, family Onset: 1 month ago Position: abdomen Symptom Intensity: 9/10 Quality: burning Timing: waxes/wanes Associated Symptoms: + nausea, + back pain, No fevers, No chills, No vomiting Review of Systems See HPI for pertinent positives and negatives. A total of ten systems were reviewed and were otherwise negative. 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 (13) PERSONAL HX OF TIA,& CEREBRAL INFARCTION W/OUT RES DEFICITS Family History Noncontribuatry due to age Social History Smoking Status: Never Smoker Alcohol Use: occasionally Drug Use: none Marital Status: Occupation Status: retired Current/Historical Medications Scheduled Aspirin-Dipyridamole 25MG/200MG (Aggrenox 200MG/25MG), 1 CAP PO BID Atenolol (Tenormin), 100 MG PO HS Esomeprazole Magnesium (Nexium), 2 TABS PO DAILY Felodipine (Plendil), 5 MG PO DAILY Furosemide (Lasix), 20 MG PO DAILY Loratadine (Allergy Relief), 10 MG PO DAILY Losartan Potassium (Cozaar), 100 MG PO DAILY Vista-3 Fatty Acids (Vista 3), 1 CAP PO DAILY Oyster Shell (Calcium), 500 MG PO DAILY Pantoprazole (Protonix), 40 MG PO DAILY Potassium Chloride Microencaps (Potassium Chloride Er), 40 MEQ PO DAILY Ranitidine (Zantac), 150 MG PO HS Simvastatin (Zocor), 40 MG PO HS Scheduled PRN Acetaminophen (Tylenol), 650 MG PO Q6H PRN for Pain or Fever Lorazepam (Ativan), 1 MG PO TID PRN for Anxiety Metoclopramide (Reglan), 10 MG PO Q6H PRN for Nausea Ondansetron Hcl (Zofran), 4 MG PO Q6H PRN for Nausea Promethazine Hcl (Phenergan), 25 MG PO Q6H PRN for Nausea Allergies Coded Allergies: Hydralazine (Verified Allergy, Unknown, HYPOTENSION, 05/14/17) Lactose Intolerance (Verified Adverse Reaction, Mild, GI UPSET, 05/14/17) Physical Exam Vital Signs Date Time Temp Pulse Resp B/P (MAP) Pulse Ox O2 Delivery O2 Flow Rate FiO2 05/14/17 15:36 63 16 130/86 94 05/14/17 13:51 58 18 141/58 97 Room Air 05/14/17 12:55 67 18 156/75 97 Room Air 05/14/17 12:53 66 05/14/17 11:20 36.6 68 20 143/83 96 Physical Exam GENERAL: Awake, alert, uncomfortable-appearing, NAD HENT: Normocephalic, atraumatic. EYES: Normal conjunctiva. Sclera non-icteric. NECK: Supple. No nuchal rigidity. FROM. RESPIRATORY: CTAB, no rhonchi, wheezing, crackles CARDIAC: RRR, no MRG ABDOMEN: Soft, epigastric pain, no RUQ TTP, BS+ MSK: No chest wall TTP, no LE edema NEURO: GCS 15, CN 2-12 intact, moves all 4s on command SKIN: No rash or jaundice noted. Medical Decision & Procedures ER Provider Diagnostic Interpretation: Radiology results as stated below per my review and radiologist interpretation: CHEST ONE VIEW PORTABLE CLINICAL HISTORY: 81 years-old Female presenting with epigastric pain. TECHNIQUE: Portable upright AP view of the chest was obtained. COMPARISON: 02/19/2015. FINDINGS: Atherosclerosis of aortic arch. Cardiac silhouette normal in size. Lungs and pleural spaces clear. Degenerative changes of the thoracic spine. Moderate hiatal hernia. IMPRESSION: 1. No acute cardiopulmonary disease. 2. Moderate hiatal hernia. Electronically signed by: Modesto Miller M.D. 05/14/2017 12:57 PM Dictated Date/Time: 05/14/2017 12:56 PM Laboratory Results 05/14/17 12:36 Red Blood Count 4.41, Mean Corpuscular Volume 92.7, Mean Corpuscular Hemoglobin 32.4, Mean Corpuscular Hemoglobin Concent 35.0, Mean Platelet Volume 10.6, Neutrophils (%) (Auto) 73.5, Lymphocytes (%) (Auto) 15.2, Monocytes (%) (Auto) 9.9, Eosinophils (%) (Auto) 0.4, Basophils (%) (Auto) 0.6, Neutrophils # (Auto) 7.82, Lymphocytes # (Auto) 1.61, Monocytes # (Auto) 1.05, Eosinophils # (Auto) 0.04, Basophils # (Auto) 0.06 05/14/17 12:00 Test 05/14/17 12:00 05/14/17 12:36 05/14/17 12:50 Anion Gap 8.0 mmol/L (3-11) Est Creatinine Clear Calc Drug Dose 36.0 ml/min Estimated GFR () 43.9 Estimated GFR (Non- 37.9 BUN/Creatinine Ratio 9.3 (10-20) Calcium Level 9.7 mg/dl (8.5-10.1) Total Bilirubin 0.5 mg/dl (0.2-1) Direct Bilirubin mg/dl (0-0.2) Aspartate Amino Transf (AST/SGOT) 23 U/L (15-37) Alanine Aminotransferase (ALT/SGPT) 27 U/L (12-78) Alkaline Phosphatase 52 U/L (45-117) Troponin I < 0.015 ng/ml (0-0.045) Total Protein 8.0 gm/dl (6.4-8.2) Albumin 3.5 gm/dl (3.4-5.0) Lipase 81 U/L (73-393) Chemistry Specimen Hemolysis White Blood Count 10.62 K/uL (4.8-10.8) Red Blood Count 4.41 M/uL (4.2-5.4) Hemoglobin 14.3 g/dL (12.0-16.0) Hematocrit 40.9 % (37-47) Mean Corpuscular Volume 92.7 fL (80-100) Mean Corpuscular Hemoglobin 32.4 pg (25-34) Mean Corpuscular Hemoglobin Concent 35.0 g/dl (32-36) Platelet Count 248 K/uL (130-400) Mean Platelet Volume 10.6 fL (7.4-10.4) Neutrophils (%) (Auto) 73.5 % Lymphocytes (%) (Auto) 15.2 % Monocytes (%) (Auto) 9.9 % Eosinophils (%) (Auto) 0.4 % Basophils (%) (Auto) 0.6 % Neutrophils # (Auto) 7.82 K/uL (1.4-6.5) Lymphocytes # (Auto) 1.61 K/uL (1.2-3.4) Monocytes # (Auto) 1.05 K/uL (0.11-0.59) Eosinophils # (Auto) 0.04 K/uL (0-0.5) Basophils # (Auto) 0.06 K/uL (0-0.2) RDW Standard Deviation 44.7 fL (36.4-46.3) RDW Coefficient of Variation 13.2 % (11.5-14.5) Immature Granulocyte % (Auto) 0.4 % Immature Granulocyte # (Auto) 0.04 K/uL (0.00-0.02) Urine Color YELLOW Urine Appearance CLEAR (CLEAR) Urine pH 6.5 (4.5-7.5) Urine Specific Marshall 1.018 (1.000-1.030) Urine Protein NEG (NEG) Urine Glucose (UA) NEG (NEG) Urine Ketones NEG (NEG) Urine Occult Blood NEG (NEG) Urine Nitrite NEG (NEG) Urine Bilirubin NEG (NEG) Urine Urobilinogen NEG (NEG) Urine Leukocyte Esterase MODERATE (NEG) Urine WBC (Auto) 10-30 /hpf (0-5) Urine RBC (Auto) 0-4 /hpf (0-4) Urine Hyaline Casts (Auto) 1-5 /lpf (0-5) Urine Epithelial Cells (Auto) >30 /lpf (0-5) Urine Bacteria (Auto) NEG (NEG) Urine Renal Epithelial Cells 5-10 /lpf (0-5) Laboratory results reviewed by me Medications Administered Medications (Trade) Dose Ordered Sig/Cornelio Route Start Time Stop Time Status Last Admin Dose Admin Sodium Chloride 500 ml @ 500 mls/hr Q1H STAT IV 05/14/17 12:36 05/14/17 13:35 DC 05/14/17 12:36 500 MLS/HR Metoclopramide HCl (Reglan Inj) 10 mg NOW STAT IV 05/14/17 12:36 05/14/17 12:37 DC 05/14/17 12:36 10 MG Miscellaneous Medication (Gi Cocktail) 24 ml ONE STAT PO 05/14/17 12:36 05/14/17 12:38 DC 05/14/17 12:36 24 ML ED Course 1147: The patient was evaluated in room C1B. A complete history and physical exam was performed. 1236: GI Cocktail 24 ml PO, Reglan 10 mg IV, NSS 500 ml @ 500 mls/hr IV 1502: I reassessed the patient. She is feeling better and resting comfortably. I discussed the results and treatment plan with the patient. I answered all pertaining questions that she had. She expressed understanding and verbalized agreement. The patient will be discharged home. Medical Decision The patient is an 81 year old white female with a past medical history of HTN, hyperlipidemia, GERD, gallstones, and a hiatal hernia who presents to the ED with a cc of waxing and waning nausea beginning 1 month ago. Differential diagnosis: Etiologies such as appendicitis, diverticulitis, PUD, biliary pathology, UTI, pancreatitis, obstruction, mesenteric ischemia, aortic pathology, infections, inflammatory bowel disease, renal colic, as well as others were entertained. Patient was seen and evaluated the bedside. Patient was complaining of some burning type pain that radiated up into her throat. Patient is a prior history of GERD and scheduled for an outpatient follow-up with gastroenterology on Saturday. Patient states that when she presents here she usually the chief symptomatically controlled with an has worsening symptoms at home. Patient is on a PPI. Patient has had nausea but without vomiting. Patient had been tolerating by mouth. Patient had a recent bowel movement this morning. Patient had any dysuria or hematuria. Patient denies any trauma. Patient did have labs. Patient did have some very mild epigastric pain without any other localizing signs did not have a surgical or acute abdomen. Patient white blood cell count at 10,000. Patient has a negative troponin. EKG does not appear ischemic less likely atypical chest pain or ACS. Patient LFTs and lipase within normal limits. Patient was reassessed and feeling much improved. Patient was told to avoid things like large meals, spicy foods, citrus, chocolate, peppermint, caffeine. Patient was also given a prescription for Reglan to keep her follow-up appointment on Saturday. Patient does not have a surgical abdomen at this time, AF, symptomatic relief and does not require a CT scan at this time. Patient was given strict follow-up, discharge, and return precautions. Patient agreed with plan of care and was discharged home. Medication Reconcilliation Current Medication List: was personally reviewed by me Blood Pressure Screening Patient's blood pressure: Normal blood pressure Impression Primary Impression: Nausea Additional Impression: Hiatal hernia Scribe Attestation The scribe's documentation has been prepared under my direction and personally reviewed by me in its entirety. I confirm that the note above accurately reflects all work, treatment, procedures, and medical decision making performed by me. Departure Information Dispostion Home / Self-Care Prescriptions Metoclopramide (Reglan) 10 Mg Tab 10 MG PO Q6H Y for Nausea, #6 TAB Prov: Zan Christopher M.D. 05/14/17 Referrals Otto Dolan M.D. (PCP) Patient Instructions ED GERD, [facility] Additional Instructions Please return to the emergency department if you have worsening or recurrent symptoms not amenable to at-home treatment. Please call for a follow-up appointment with her primary care physician. Please take your medications as prescribed. If you have other concerns and/or complaints please feel free to also call your primary care physician's office or return the ED for further evaluation, management, and treatment. Consider smaller meals, avoid fatty, citrus, and spicy foods. Avoid caffeine, peppermint, and chocolate. Keep your Saturday appointment. You have been examined and treated today on an emergency basis only. This is not a substitute for, or an effort to provide, complete comprehensive medical care. It is impossible to recognize and treat all injuries or illnesses in a single emergency department visit. It is therefore important that you follow up closely with [facility]. Call as soon as possible for an appointment. Thank you for your time and consideration. I look forward to speaking with you again soon. Please don't hesitate to call us if you have any questions. Problem Qualifiers
[2017-05-14 15:36] VITALS: BP 130/86; PULSE 63; O2SAT 94
== END 2017-05-14 15:25 | disposition home or self-care (01) ==
LOC: C.EDB 11:20 → C.EDC 15:25
DX: R11.0 Nausea (principal); K44.9 Diaphragmatic hernia without obstruction or gangrene; K21.9 Gastro-esophageal reflux disease without esophagitis; I12.9 Hypertensive chronic kidney disease with stage 1 through stage 4 chronic kidney disease, or unspecified chronic kidney disease; N18.3 Chronic kidney disease, stage 3 (moderate); E78.5 Hyperlipidemia, unspecified; Z85.038 Personal history of other malignant neoplasm of large intestine; Z86.73 Personal history of transient ischemic attack (TIA), and cerebral infarction without residual deficits; Z79.82 Long term (current) use of aspirin

== ENCOUNTER → 2017-05-20 | Outpatient (CLI) | payer OTHER ==
[~2017-05-20] MED LIST changes: +ACET-1311 PO; -CHOLTAB11 PO; +FURO-85 PO; +METO-157 PO; +NXM/40 PO; +ONDA4TAB46 PO; +PANT1TAB48 PO; +PANT40TA PO; -PRLSR20 PO; +SUCR5SUS PO; +ZNTT/150 PO
--- NOTE | 2017-05-20 10:19 | DIAGNOSTIC IMAGING REPORT ---
(BARIUM SWALLOW) ESOPHAGUS CLINICAL HISTORY: REFLUX. COMPARISON STUDY: Abdomen and pelvis CT 03/30/2017 FLUOROSCOPY TIME: 1.4 minutes. FINDINGS: 26 images submitted. The esophagus is normal in course and caliber. The contours of the hypopharynx are within normal limits. There is again noted a large hiatal hernia containing the majority of the stomach. Mild esophageal dysmotility. No gastroesophageal reflux demonstrated during the examination. IMPRESSION: No change in the large hiatal hernia. Electronically signed by: Glen John M.D. 05/20/2017 10:18 AM Dictated Date/Time: 05/20/2017 10:14 AM
== END | disposition home or self-care (01) ==
LOC: C.RAD 09:28
PROVIDERS: ATTEND Nurse Practitioner
DX: K21.0 Gastro-esophageal reflux disease with esophagitis (principal); K44.9 Diaphragmatic hernia without obstruction or gangrene

== ENCOUNTER → 2017-05-22 | Day surgery (SDC) | payer OTHER ==
[2017-05-20 13:11] VITALS: BMI 35.0
[~2017-05-22] VITALS: Ht 157.5 cm; Wt 86.8 kg
[~2017-05-22] MED LIST changes: -FURO20TA PO; +LIDOCAINE HCL 2% 2 ML VIAL (20MG/ML) ONE; -NXM/40 PO; -PANT1TAB48 PO; +PROPOFOL IV EMULSION 10 MG/ML 20 ML VIAL IV ONE
[2017-05-22 10:38] VITALS: Ht 157.5 cm; Wt 86.8 kg
--- NOTE | 2017-05-22 12:42 | Endo History and Physical ---
History & Physical Date of Service: May 22, 2017. Chief Complaint: Hx of colon cancer, reflux Referring Physician: Dr. 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 She is here however to discuss reflux symptoms. Here w dght in law who reports they have been to [facility] ED several times within last month for pt's c/o upper abd pain and burning sensation from throat to lower chest areas, associated w also nausea, vomiting, poor PO intake. She has hx of large hiatal hernia seen on previous CT scan. She takes Ranitidine 75mg in AM, 150mg in HS, Protonix 40mg in AM. She said these aren't enough to suppress the heartburn symptoms but symptoms are usually relieved in ED when she's given GI cocktail. She is recently started on Carafate 1g QID which helps a lot. She denies any painful swallowing, but has at times trouble swallowing foods and coughing them up. She is tolerating mostly just crackers, but no unexpected weight loss. Denies any bowel habit changes except Carafate makes stools a bit harder to pass. Denies blood in stools. She can't recall last colonoscopy for colon ca screening but said it should be due any time soon now. She never had EGD eval before. Past Surgical History Hx Cardiac Surgery: No Hx Internal Defibrillator: No Hx Pacemaker: No Hx Abdominal Surgery: No Hx of Implantable Prosthesis: No Hx Post-Op Nausea and Vomiting: No Hx Cancer Surgery: Yes (COLON RESECTION) Hx Thoracic Surgery: No Hx Orthopedic: No Hx Urinary Tract Surgery: No Family History Colon CA Social History Smoking Status: Never Smoker Hx Substance Use: No Hx Alcohol Use: No Allergies Coded Allergies: Hydralazine (Verified Allergy, Unknown, HYPOTENSION, 05/20/17) Lactose Intolerance (Verified Adverse Reaction, Mild, GI UPSET, 05/20/17) Current Medications Reported Home Medications Medications Dose Route/Sig Max Daily Dose Days Date Category Dose Instructions Phenergan (Promethazine HCl) 25 Mg Tab 25 Mg PO Q6H PRN 05/20/17 Reported Reglan (Metoclopramide HCl) 10 Mg Tab 10 Mg PO Q6H PRN 05/20/17 Reported NAUSEA Carafate (Sucralfate) 1 Gm/10 Ml Susp 10 Ml PO QID 30 05/20/17 Reported Plendil (Felodipine) 5 Mg Tabcr 5 Mg PO DAILY AFTERNOON 05/20/17 Reported Lasix (Furosemide) 20 Mg Tab 20 Mg PO QAM 05/20/17 Reported Calcium (Oyster Shell) 500 Mg Tab 1 Tab PO QAM 05/20/17 Reported Lansing 3 (Lansing-3 Fatty Acids) 1 Cap Cap 1 Cap PO QAM 05/20/17 Reported Protonix (Pantoprazole Sodium) 40 Mg Tab 40 Mg PO QAM 05/20/17 Reported Cozaar (Losartan Potassium) 100 Mg Tab 100 Mg PO QAM 05/20/17 Reported Tylenol (Acetaminophen) 325 Mg Tab 650 Mg PO Q6H PRN 05/14/17 Reported Zofran (Ondansetron HCl) 4 Mg Tab 4 Mg PO Q6H PRN 05/14/17 Reported Zantac (Ranitidine HCl) 150 Mg Tab 150 Mg PO HS 05/14/17 Reported Allergy Relief (Loratadine) 10 Mg Tab 10 Mg PO DAILY PRN 05/02/17 Reported Potassium Chloride Er (Potassium Chloride Microencaps) 20 Meq Tab 40 Meq PO DAILY 90 03/30/17 Reported Ativan (Lorazepam) 1 Mg Tab 1 Mg PO TID PRN 10/10/13 Reported Tenormin (Atenolol) 100 Mg Tab 100 Mg PO HS 01/05/13 Reported Aggrenox 200MG/25MG (Aspirin-Dipyridamole 25MG/200MG) 1 Cap Cap 1 Cap PO BID 02/11/12 Reported Zocor (Simvastatin) 40 Mg Tab 40 Mg PO HS 05/24/11 Reported Vital Signs Weight (Kilograms): 86.82 Height (Feet): 5 Height (Inches): 2 Date Time Temp Pulse Resp B/P (MAP) Pulse Ox O2 Delivery O2 Flow Rate FiO2 05/22/17 10:47 36.5 75 18 176/85 (115) 96 Room Air Physical Exam General Appearance: WD/WN Respiratory/Chest: Respiratory effort: no dyspnea Auscultation: breath sounds normal Cardiovascular: Apical Impulse: not displaced Heart Auscultation: RRR Abdomen: Bowel Sounds: normal Inspection & Palpation: soft, non-distended Assessment and Plan Plan for EGD for GERD and colonoscopy for hx of colon cancer
--- NOTE | 2017-05-22 13:28 | GI REPORT ---
Procedure Date: 05/22/2017 11:41 AM Procedure: Colonoscopy Indications: High risk colon cancer surveillance: Personal history of colon cancer Medicines: General Anesthesia Complications: No immediate complications. Estimated blood loss: None. Estimated Blood Loss: Estimated blood loss: none. Procedure: Pre-Anesthesia Assessment: - Pre-Anesthesia Assessment: - Prior to the procedure, a History and Physical was performed, and patient medications, allergies and sensitivities were reviewed. The patient's tolerance of previous anesthesia was reviewed. Please see [employer] for complete details. - The risks and benefits of the procedure and the sedation options and risks were discussed with the patient. All questions were answered and informed consent was obtained. - Patient identification and proposed procedure were verified prior to the procedure by the physician and the nurse. The procedure was verified in the pre-procedure area in the procedure room. After obtaining informed consent, the endoscope was passed carefully and meticuously under direct vision and only advanced when the lumen was clearly identified, C02 insuflation was utilized throughout the entirity of the procedure. Throughout the procedure, the patient's blood pressure, pulse, and oxygen saturations were monitored continuously. After I obtained informed consent, the scope was passed under direct vision. Throughout the procedure, the patient's blood pressure, pulse, and oxygen saturations were monitored continuously. The scope was introduced through the anus and advanced to the terminal ileum, with identification of the appendiceal orifice and IC valve. The colonoscopy was performed without difficulty. The patient tolerated the procedure well. The quality of the bowel preparation was good. Findings: There was evidence of a prior end-to-end colo-colonic anastomosis in the sigmoid colon. This was patent and was characterized by healthy appearing mucosa. The terminal ileum appeared normal. Multiple small-mouthed diverticula were found in the sigmoid colon. Internal hemorrhoids were found during retroflexion. Impression: - Patent end-to-end colo-colonic anastomosis, characterized by healthy appearing mucosa. - The examined portion of the ileum was normal. - Diverticulosis in the sigmoid colon. - Internal hemorrhoids. - No specimens collected. Recommendation: - Discharge patient to home (with escort). - Repeat colonoscopy not needed given age. - Return to referring physician as previously scheduled. Osvaldo Corona MD 05/22/2017 1:27:36 PM This report has been signed electronically. Note Initiated On: 05/22/2017 11:41 AM I attest to the content of the Intraoperative Record and orders documented therein, exceptions below
--- NOTE | 2017-05-22 13:31 | GI REPORT ---
Procedure Date: 05/22/2017 11:42 AM Procedure: Upper GI endoscopy Indications: Nausea with vomiting Medicines: General Anesthesia Complications: No immediate complications. Estimated blood loss: None. Estimated Blood Loss: Estimated blood loss: none. Procedure: Pre-Anesthesia Assessment: - Pre-Anesthesia Assessment: - Prior to the procedure, a History and Physical was performed, and patient medications, allergies and sensitivities were reviewed. The patient's tolerance of previous anesthesia was reviewed. Please see [employer] for complete details. - The risks and benefits of the procedure and the sedation options and risks were discussed with the patient. All questions were answered and informed consent was obtained. - Patient identification and proposed procedure were verified prior to the procedure by the physician and the nurse. The procedure was verified in the pre-procedure area in the procedure room. After obtaining informed consent, the endoscope was passed carefully and meticuously under direct vision and only advanced when the lumen was clearly identified, C02 insuflation was utilized throughout the entirity of the procedure. Throughout the procedure, the patient's blood pressure, pulse, and oxygen saturations were monitored continuously. After obtaining informed consent, the endoscope was passed under direct vision. Throughout the procedure, the patient's blood pressure, pulse, and oxygen saturations were monitored continuously. The scope was introduced through the mouth, and advanced to the second part of duodenum. The upper GI endoscopy was accomplished without difficulty. The patient tolerated the procedure well. Findings: A large-sized type-III paraesophageal hernia was found. The entire examined stomach was normal. Biopsies were taken with a cold forceps for histology. The examined duodenum was normal. Impression: - Normal stomach. Biopsied. - Normal examined duodenum. Recommendation: - Await pathology results. - Discharge patient to home (with escort). - Return to referring physician as previously scheduled. - Maximize medical treatment options, if exhausted and still symptomatic, consider referral for hernia repair. Osvaldo Corona MD 05/22/2017 1:30:52 PM This report has been signed electronically. Note Initiated On: 05/22/2017 11:42 AM I attest to the content of the Intraoperative Record and orders documented therein, exceptions below
--- NOTE | 2017-05-22 13:36 | Discharge Instructions ---
Endoscopy Patient Instructions Date / Procedure(s) Performed May 22, 2017. Colonoscopy, EGD Allergy Information Coded Allergies: Hydralazine (Verified Allergy, Unknown, HYPOTENSION, 05/20/17) Lactose Intolerance (Verified Adverse Reaction, Mild, GI UPSET, 05/20/17) Discharge Date / Findings May 22, 2017. EGD: Impression: - Normal stomach. Biopsied. - Normal examined duodenum. Recommendation: - Await pathology results. - Discharge patient to home (with escort). - Return to referring physician as previously scheduled. - Maximize medical treatment options, if exhausted and still symptomatic, consider referral for hernia repair. Colonoscopy Impression: - Patent end-to-end colo-colonic anastomosis, characterized by healthy appearing mucosa. - The examined portion of the ileum was normal. - Diverticulosis in the sigmoid colon. - Internal hemorrhoids. - No specimens collected. Recommendation: - Discharge patient to home (with escort). - Repeat colonoscopy not needed given age. - Return to referring physician as previously scheduled. Provider Instructions Activity Restrictions - No exercising or heavy lifting for 24 hours. - Do not drink alcohol the day of the procedure. - Do not drive a car or operate machinery until the day after the procedure. - Do not make any important decisions or sign important papers in 24 hours after the procedure. Following Day: - Return to full activity which may include returning to work/school. Diet Start your diet with liquids and light foods (jello, soup, juice, toast). Then eat your usual diet if not nauseated. Treatment For Common After Affects For mild abdominal pain, bloating, or excessive gas: - Rest - Eat lightly - Lie on right side Follow-Up Information Follow-up with Dr. Bermudez as scheduled Anesthesia Information What You Should Know You have had a procedure that required some medicine to reduce anxiety and discomfort. This treatment is called moderate sedation. After receiving the treatment, you may be sleepy, but you will be able to breathe on your own. The effects of the treatment may last for several hours. Follow these instructions along with Activity/Diet recommendations noted above: * Do NOT do anything where dizziness or clumsiness would be dangerous. * Rest quietly at home today, then you can be up and about tomorrow. * Have a responsible person stay with you the rest of today. * You may have had an I.V. today. If so, you may take the dressing off later today. Recommendations Call your doctor if: * Trouble breathing * Continuous vomiting for more than 24 hours * Temperature above 101 degrees * Severe abdominal pain or bloating * Pain not relieved by pain medicine ordered * There is increased drainage or redness from any incision * A large amount of rectal bleeding greater than 2-3 tablespoons. (If you had a polyp/s removed or have hemorrhoids, a small amount of blood - from the rectum is to be expected.) * You have any unanswered questions or concerns. IN THE EVENT OF A SERIOUS EMERGENCY, GO TO THE NEAREST EMERGENCY ROOM Your discharge instructions were prepared by provider Osvaldo Corona. Patient Instructions Signature Page Shelley Oneill Patient (or Guardian) Signature/Date: I have read and understand the instructions given to me by my caregivers. Caregiver/RN/Doctor Signature/Date: The above-named patient and/or guardian has received patient instructions on this date. + Original Patient Signature Page (only) stays with chart. Please make copy for patient.
[2017-05-22 13:38] VITALS: BP 145/70; PULSE 79; O2SAT 95
--- NOTE | 2017-05-22 14:08 | Anesthesiology Progress Note ---
Anesthesia Post Op Note Date & Time May 22, 2017 at 14:07 Vital Signs Pain Intensity: 0 Vital Signs Past 12 Hours Date Time Temp Pulse Resp B/P (MAP) Pulse Ox O2 Delivery O2 Flow Rate FiO2 05/22/17 13:38 79 18 145/70 (95) 95 Room Air 05/22/17 13:28 85 18 138/69 (92) 96 Room Air 05/22/17 13:16 87 18 113/66 (82) 95 Room Air 05/22/17 10:47 36.5 75 18 176/85 (115) 96 Room Air Notes Mental Status: alert / awake / arousable, participated in evaluation Pt Amnestic to Procedure: Yes Nausea / Vomiting: adequately controlled Pain: adequately controlled Airway Patency, RR, SpO2: stable & adequate BP & HR: stable & adequate Hydration State: stable & adequate Anesthetic Complications: no major complications apparent
== END | disposition home or self-care (01) ==
LOC: C.GI 09:36
PROVIDERS: ATTEND Internal Medicine
DX: Z12.11 Encounter for screening for malignant neoplasm of colon (principal); Z85.038 Personal history of other malignant neoplasm of large intestine; Z98.0 Intestinal bypass and anastomosis status; K57.30 Diverticulosis of large intestine without perforation or abscess without bleeding; K64.8 Other hemorrhoids; K44.9 Diaphragmatic hernia without obstruction or gangrene; K29.50 Unspecified chronic gastritis without bleeding; R11.2 Nausea with vomiting, unspecified; Z79.899 Other long term (current) drug therapy
CPT/HCPCS: 43239; G0105

== ENCOUNTER 2022-05-09 14:56 | Inpatient (IN) ==
[2022-05-09] MEDS ORDERED: SODIUM CHLORIDE 0.9% 500 ML IV STA (15:03)
--- NOTE | 2022-05-09 15:10 | Emergency Department Note ---
Impression & Plan SBO (small bowel obstruction), Hiatal hernia, Nausea & vomiting, Atrial fibrillation with rapid ventricular response ED Provider Note Provider: Torres Oh MD DATE OF SERVICE: 05/09/2022 CHIEF COMPLAINT: Nausea and vomiting, epigastric discomfort HISTORY OF PRESENT ILLNESS: Patient is a 86-year-old female history of hypertension, GERD, CKD, gallstones, hiatal hernia presenting to the ED stating since around 6 or 7:00 last evening throughout the night tonight into today has been experiencing some epigastric discomfort she feels as a pinching sensation as well as nausea and vomiting. No other sick contacts reported. Denies trauma or falls. Denies lower abdominal pain or chest pain. Denies difficulty breathing. Patient states he received some nausea medicine with the ambulance on the way here and her symptoms are feeling much improved. Patient denies current abdominal pain or nausea. Denies dizziness or headache. REVIEW OF SYSTEMS: A total of 10 review of systems was obtained and negative except as stated above in the HPI. PAST MEDICAL HISTORY: As noted above MEDICATIONS: Reviewed home medications SOCIAL HISTORY: Lives at home, her sons live next-door PHYSICAL EXAM: GENERAL: alert and oriented in no acute distress on stretcher Head: normocephalic and atraumatic EYES: No injection, discharge or icterus. NECK: Trachea midline. ENT: Mucous membranes pink and moist. LUNGS: Airway patent. No retractions. Breath sounds clear with good air entry bilaterally. HEART: Irregular tachycardic rate and rhythm. No chest wall tenderness ABDOMEN: Soft and non-tender, without guarding or rebound. No masses SKIN: Acyanotic, warm, dry, without rashes EXTREMITIES: Without swelling, tenderness or deformity NEUROLOGICAL: No focal deficits. No aphasia. No facial droop or slurred speech. EKbpm atrial fibrillation with rapid ventricular response with incomplete bundle branch block. There anterior and inferior T wave inversions present. No clear acute ST segment elevation. CONTINUOUS CARDIAC MONITORING: was ordered and showed a heart rate of 100s-130s bpm in A. fib Patient's laboratory studies and imaging reviewed. Differential includes Appendicitis, infections, diverticulitis, UTI, obstruction, mesenteric ischemia, aortic pathology, inflammatory bowel disease, renal colic, PUD, pancreatitis, biliary pathology, hernia, volvulus, constipation, as well as other pathologies. IMPRESSION/MEDICAL DECISION MAKING: Denies nausea or vomiting or abdominal complaints at the current time. Reports earlier nausea and vomiting since last evening as well as some upper epigastric abdominal discomfort. States was not that tender and has no tenderness or discomfort there now. Receive Zofran and a small mount of fluid in route. Denies any trauma. There is no evidence of significant rash. Basic blood work be obtained as well as a CT of the abdomen pelvis to exclude occult acute intra- abdominal pathology. Noncontrast given her renal dysfunction. Given a small amount of IV fluid. COVID test sent. Lower suspicion this represents ACS but an EKG and troponin were completed. Not having significant pulmonary symptoms and doubt PE or pneumonia. Resolution of symptoms without significant now lowers my suspicion for dissection. No significant anemia or blood cell count at 9.9. Negative COVID. Troponin not elevated. Is noted to be irregularly tachycardic. No reported history of an irregular heartbeat or A. fib. Will start on diltiazem drip. Chest x-ray per radiology with evidence of a large hiatal hernia. CT scan of the abdomen pelvis per radiology with moderate to high-grade small bowel obstruction left lower quadrant with some mesenteric stranding and ascites. No pneumatosis or free air or portal venous gas noted per radiology. Discussed with the patient and recommended further care here at the hospital. Discussed placing an NG tube at this time. Will defer anticoagulation with new onset A. fib at this point to the inpatient team pending possible need for NG tube placement. Patient updated and NG tube ordered. X-ray for placement ordered. Given patient resting comfortably without significant abdominal pain or nausea complaints at this point. Hospitalist contacted and they did have me reach out to Bill of the general surgery team who is made aware of the patient without further recommendations. DIAGNOSIS: Small bowel obstruction, nausea and vomiting, epigastric abdominal pain, new onset atrial fibrillation with rapid ventricular response DISPOSITION: Hospitalist will evaluate Patient was agreeable with this plan. Critical Care I have personally spent 31 minutes of critical care time in the direct management of this patient. This includes bedside care, interpretation of diagnostic studies, and testing, discussion with consultants, patient, and family members, and other required patient management activities. These 31 minutes is in excess of all separately billable procedures. Past Med/Surg History Social History Smoking Status: Never smoker Preferred Language: Pashto Feels Safe at Home: Yes Allergies Allergies Allergy/AdvReac Type Severity Reaction Status Date / Time hydralazine Allergy Unknown HYPOTENSION Verified 05/22/17 13:04 lactose AdvReac Mild GI UPSET Verified 05/22/17 13:04 Home Meds Home Medications Medication Instructions Recorded Confirmed Simvastatin (Zocor) 40 mg PO HS ##0 05/24/11 ASPIRIN-DIPYRIDAMOLE 25MG/200MG 1 cap PO BID #0 caps 02/11/12 (AGGRENOX 200MG/25MG) Atenolol (Tenormin) 100 mg PO HS #0 tabs 01/05/13 LORAZEPAM (ATIVAN) 1 mg PO TID PRN Anxiety #0 tabs 10/10/13 POTASSIUM CHLORIDE MICROENCAPS 40 meq PO DAILY 90 days #180 tabs 03/30/17 (POTASSIUM CHLORIDE ER) LORATADINE (ALLERGY RELIEF) 10 mg PO DAILY PRN PRN ##0 05/02/17 Acetaminophen (Tylenol) 650 mg PO Q6H PRN Pain or Fever #0 05/14/17 tabs ONDANSETRON HCL (ZOFRAN) 4 mg PO Q6H PRN Nausea #0 tabs 05/14/17 Ranitidine (Zantac) 150 mg PO HS #0 tabs 05/14/17 FUROSEMIDE (LASIX) 20 mg PO QAM #0 tabs 05/20/17 Felodipine (Plendil) 5 mg PO DAILY AFTERNOON #0 tabs 05/20/17 LOSARTAN POTASSIUM (COZAAR) 100 mg PO QAM #0 tabs 05/20/17 Metoclopramide (Reglan) 10 mg PO Q6H PRN Nausea #6 tabs 05/20/17 OMEGA-3 FATTY ACIDS (OMEGA 3) 1 cap PO QAM ##0 05/20/17 OYSTER SHELL (CALCIUM) 1 tab PO QAM ##0 05/20/17 Pantoprazole (Protonix) 40 mg PO QAM #30 tabs 05/20/17 Promethazine Hcl (Phenergan) 25 mg PO Q6H PRN Nausea #0 tabs 05/20/17 SUCRALFATE (Carafate) 10 ml PO QID 30 days #1,200 mL 05/20/17 Results & Data (ED) Vital Signs Vital Signs - 24 hr 05/09/22 15:01 05/09/22 15:08 05/09/22 16:00 Temperature 36.7 C Temperature Source Oral Pulse Rate 134 H Pulse Rate [Apical] 140 H Pulse Rhythm Regular Pulse Strength Normal Respiratory Rate 19 18 Respiratory Effort / Characteristics Non-Labored Non-Labored Respiratory Depth Normal Normal Respiratory Pattern Regular Regular Blood Pressure 143/98 H Blood Pressure [Right Arm] 130/104 H Blood Pressure Mean 113 Blood Pressure Mean [Right Arm] 112 Pulse Oximetry 98 98 97 Oxygen Delivery Method Room Air Room Air Room Air Sepsis Recent Fever Within 48 Hours No Sepsis New/Unexplained Change in Mental Status N/A Sepsis Action Taken by Nursing No Action Required Laboratory Data Result diagrams: 05/09/22 15:00 05/09/22 15:00 Lab Results 05/09/22 05/09/22 05/09/22 Range/Units 15:00 15:00 15:00 WBC 9.96 (4.8-10.8) K/ul RBC 4.62 (3.93-5.22) M/uL Hgb 14.5 (12.0-16.0) g/dl Hct 43.6 (34.1-44.9) % MCV 94.4 (80.0-100.0) fL MCH 31.4 (25.0-34.0) pg MCHC 33.3 (32.0-36.0) g/dL RDW Std Deviation 46.1 (36.4-46.3) fL RDW Coeff of Shyanne 13.4 (11.5-14.5) % Plt Count 260 (130-400) K/uL MPV 10.1 (9.4-12.3) fL Immature Gran % (Auto) 0.3 % Neut % (Auto) 83.4 % Lymph % (Auto) 9.4 % Stephens % (Auto) 6.4 % Eos % (Auto) 0.1 % Baso % (Auto) 0.4 % Neut # (Auto) 8.30 H (1.4-6.5) K/uL Lymph # (Auto) 0.94 L (1.2-3.4) K/uL Stephens # (Auto) 0.64 (0.24-0.82) K/uL Eos # (Auto) 0.01 (0-0.50) K/uL Baso # (Auto) 0.04 (0-0.2) K/uL Immature Gran # (Auto) 0.03 H (0.00-0.02) K/uL Sodium TNP Potassium TNP Chloride 101 (98-107) mmol/L Carbon Dioxide 24 (21-32) mmol/L Anion Gap TNP BUN 22 (6-23) mg/dl Creatinine 1.22 H (0.6-1.2) mg/dl Est Cr Clr Drug Dosing 30.0 ml/min Est GFR ( Amer) 45.8 ml/min Est GFR (Non-Af Amer) 39.5 ml/min BUN/Creatinine Ratio 18.0 (10-20) Glucose 136 H (70-99(Fasting)) mg/dl Calcium 9.2 (8.5-10.1) mg/dl Magnesium TNP Total Bilirubin 0.7 (0.2-1.0) mg/dl AST TNP ALT 9 (7-52) U/L Alkaline Phosphatase 49 (34-104) U/L Troponin I High Sens 10.3 (0-14) pg/ml Total Protein 6.9 (6.0-8.3) gm/dl Albumin 3.8 (3.4-5.0) gm/dl Globulin 3.1 (2.5-4.0) gm/dl Albumin/Globulin Ratio 1.2 (0.9-2) Lipase 9 L (11-82) U/L TSH 2.257 (0.300-4.500) uIu/ml SARS-CoV-2, RNA, NAAT (NEGATIVE) 05/09/22 Range/Units 15:15 WBC (4.8-10.8) K/ul RBC (3.93-5.22) M/uL Hgb (12.0-16.0) g/dl Hct (34.1-44.9) % MCV (80.0-100.0) fL MCH (25.0-34.0) pg MCHC (32.0-36.0) g/dL RDW Std Deviation (36.4-46.3) fL RDW Coeff of Shyanne (11.5-14.5) % Plt Count (130-400) K/uL MPV (9.4-12.3) fL Immature Gran % (Auto) % Neut % (Auto) % Lymph % (Auto) % Stephens % (Auto) % Eos % (Auto) % Baso % (Auto) % Neut # (Auto) (1.4-6.5) K/uL Lymph # (Auto) (1.2-3.4) K/uL Stephens # (Auto) (0.24-0.82) K/uL Eos # (Auto) (0-0.50) K/uL Baso # (Auto) (0-0.2) K/uL Immature Gran # (Auto) (0.00-0.02) K/uL Sodium Potassium Chloride (98-107) mmol/L Carbon Dioxide (21-32) mmol/L Anion Gap BUN (6-23) mg/dl Creatinine (0.6-1.2) mg/dl Est Cr Clr Drug Dosing ml/min Est GFR ( Amer) ml/min Est GFR (Non-Af Amer) ml/min BUN/Creatinine Ratio (10-20) Glucose (70-99(Fasting)) mg/dl Calcium (8.5-10.1) mg/dl Magnesium Total Bilirubin (0.2-1.0) mg/dl AST ALT (7-52) U/L Alkaline Phosphatase (34-104) U/L Troponin I High Sens (0-14) pg/ml Total Protein (6.0-8.3) gm/dl Albumin (3.4-5.0) gm/dl Globulin (2.5-4.0) gm/dl Albumin/Globulin Ratio (0.9-2) Lipase (11-82) U/L TSH (0.300-4.500) uIu/ml SARS-CoV-2, RNA, NAAT NEGATIVE (NEGATIVE) Administered Medications Discontinued Medications Diltiazem HCl (Diltiazem Hcl 5 Mg/Ml 5 Ml Vial) 10 mg IV NOW STA Stop: 05/09/22 16:24 Last Admin: 05/09/22 16:32 Dose: 10 mg Documented By: OAHazel Co-signed By: FOZIA Sodium Chloride (Nss) 500 mls @ 999 mls/hr IV .Q31M STA Stop: 05/09/22 15:33 Last Infusion: 05/09/22 15:44 Dose: 0 mls/hr Documented By: Admin: 05/09/22 15:09 Dose: 999 mls/hr Documented By: OAM Imaging Data Radiologist's Impression: Abdomen/Pelvis CT 05/09/22 15:03 CT OF THE ABDOMEN AND PELVIS WITHOUT CONTRAST CLINICAL HISTORY: Nausea, vomiting and epigastric pain. COMPARISON STUDY: KUB May 02, 2017. CT of the abdomen and pelvis March 30, 2017. TECHNIQUE: Axial images of the abdomen and pelvis were obtained without IV contrast. Images were reviewed in the axial, sagittal, and coronal planes. Automated exposure control was utilized for the study. A dose lowering techniq ue was utilized adhering to the principles of ALARA. FINDINGS: A hiatal hernia with largely intrathoracic stomach is noted. This is similar in appearance to CT of March 30, 2017. No pneumatosis, free air or portal venous gas is present. The liver is cirrhotic. No hepatic lesions are identified on this exam. A small amount of perihepatic ascites is noted. Spleen, adrenal glands, kidneys and pancreas are unremarkable on unenhanced CT. There is no biliary or pancreatic ductal dilatation. There is no hydronephrosis. Extensive aortoiliac calcified plaque is noted. A small amount of ascites within the pelvis is noted. Multiple loops of moderately dilated fluid-filled proximal small bowel are noted with small bowel feces sign. Discrete transition point is noted within the left lower quadrant on axial image [id number]. There is associated mesenteric stranding and a small amount of ascites. Distal small bowel is decompressed. There is no lymphadenopathy. No acute fracture or suspicious lesion within the visualized skeletal structures is present. IMPRESSION: 1. Findings consistent with a moderate to high-grade small bowel obstruction with transition point within the left lower quadrant. Associated mesenteric stranding and a small amount of ascites. No pneumatosis, free air or portal venous gas. 2. Cirrhosis. 3. Large hiatal hernia with intrathoracic stomach, unchanged. ACT 112: Negative or not required by law. Electronically signed by: Pedro Pablo Obregon M.D. 05/09/2022 4:11 PM Chest X-Ray 05/09/22 15:10 XR chest 1V portable HISTORY: Generalized abdominal pain. Vomiting. COMPARISON: Chest 05/14/2017. FINDINGS: No pneumothorax. No pleural effusions. No focal lung consolidations to suggest a pneumonia. No evidence for pulmonary edema. A few small bibasilar linear densities favor subsegmental atelectasis. Large hiatus hernia with a mildly distended gastric bubble. The heart is top normal in size. There are calcifications within the aortic knob. IMPRESSION: Large hiatus hernia with a distended gastric bubble. This has progressed in the interval. This will be better assessed on the same day abdomen and pelvis CT. ACT 112: Negative or not required by law. Electronically signed by: Glen John M.D. 05/09/2022 3:38 PM Discharge Plan Visit Data Chief Complaint: Vomiting Stated Complaint: VOMITING/ABDOMINAL PAIN ED Provider: Torres Oh Discharge Problem: SBO (small bowel obstruction), Hiatal hernia, Nausea & vomiting, Atrial fibrillation with rapid ventricular response Patient Disposition: Being Evaluated by Hospitalist Forms Stand Alone Forms: [facility] Prescriptions Prescriptions: No Action Simvastatin (Zocor) 40 MG tablet 40 mg PO HS Qty: 0 ASPIRIN-DIPYRIDAMOLE 25MG/200MG (AGGRENOX 200MG/25MG) 1 CAP capsule 1 cap PO BID Qty: 0 Atenolol (Tenormin) 100 MG tablet 100 mg PO HS Qty: 0 LORAZEPAM (ATIVAN) 1 MG tablet 1 mg PO TID PRN (Reason: Anxiety) Qty: 0 POTASSIUM CHLORIDE MICROENCAPS (POTASSIUM CHLORIDE ER) 20 MEQ tablet 40 meq PO DAILY 90 Days Qty: 180 LORATADINE (ALLERGY RELIEF) 10 MG tablet 10 mg PO DAILY PRN (Reason: PRN) Qty: 0 Acetaminophen (Tylenol) 325 MG tablet 650 mg PO Q6H PRN (Reason: Pain or Fever) Qty: 0 ONDANSETRON HCL (ZOFRAN) 4 MG tablet 4 mg PO Q6H PRN (Reason: Nausea) Qty: 0 Ranitidine (Zantac) 150 MG tablet 150 mg PO HS Qty: 0 FUROSEMIDE (LASIX) 20 MG tablet 20 mg PO QAM Qty: 0 Felodipine (Plendil) 5 MG [id number] 5 mg PO DAILY AFTERNOON Qty: 0 LOSARTAN POTASSIUM (COZAAR) 100 MG tablet 100 mg PO QAM Qty: 0 OMEGA-3 FATTY ACIDS (OMEGA 3) 1 CAP capsule 1 cap PO QAM Qty: 0 OYSTER SHELL (CALCIUM) 500 MG tablet 1 tab PO QAM Qty: 0 Pantoprazole (Protonix) 40 MG tablet 40 mg PO QAM Qty: 30 SUCRALFATE (Carafate) 1 GM/10 ML suspension 10 ml PO QID 30 Days Qty: 1200 Metoclopramide (Reglan) 10 MG tablet 10 mg PO Q6H PRN (Reason: Nausea) Qty: 6 Label Comments: NAUSEA Promethazine Hcl (Phenergan) 25 MG tablet 25 mg PO Q6H PRN (Reason: Nausea) Qty: 0 Referrals Referrals: Otto Dolan MD [Primary Care Provider] -
[2022-05-09 15:15] LABS: Basophils # (auto) 0.04 K/uL (0-0.2); Basophils % (auto) 0.4 %; Eosinophils # (auto) 0.01 K/uL (0-0.50); Eosinophils % (auto) 0.1 %; Hematocrit (blood only) 43.6 % (34.1-44.9); Hemoglobin 14.5 g/dl (12.0-16.0); Immature Granulocytes # (auto) 0.03 K/uL (0.00-0.02); Immature Granulocytes % (auto) 0.3 %; Lymphocytes # (auto) 0.94 K/uL (1.2-3.4); Lymphocytes % (auto) 9.4 %; Mean Corpuscular Hemoglobin 31.4 pg (25.0-34.0); Mean Corpuscular Hgb Conc 33.3 g/dL (32.0-36.0); Mean Corpuscular Volume 94.4 fL (80.0-100.0); Mean Platelet Volume 10.1 fL (9.4-12.3); Monocytes # (auto) 0.64 K/uL (0.24-0.82); Monocytes % (auto) 6.4 %; Neutrophils % (auto) 83.4 %; Platelet Count 260 K/uL (130-400); RDW Coefficient of Variation 13.4 % (11.5-14.5); RDW Standard Deviation 46.1 fL (36.4-46.3); Red Blood Count 4.62 M/uL (3.93-5.22); White Blood Count 9.96 K/ul (4.8-10.8)
--- NOTE | 2022-05-09 15:39 | XRay Report ---
XR chest 1V portable HISTORY: Generalized abdominal pain. Vomiting. COMPARISON: Chest 05/14/2017. FINDINGS: No pneumothorax. No pleural effusions. No focal lung consolidations to suggest a pneumonia. No evidence for pulmonary edema. A few small bibasilar linear densities favor subsegmental atelectas is. Large hiatus hernia with a mildly distended gastric bubble. The heart is top normal in size. Ther e are calcifications within the aortic knob. IMPRESSION: Large hiatus hernia with a distended gastric bubble. This has progressed in the interval. This will b e better assessed on the same day abdomen and pelvis CT. ACT 112: Negative or not required by law. Electronically signed by: Glen John M.D. 05/09/2022 3:38 PM
[2022-05-09 15:42] LABS: Troponin I High Sensitivity 10.3 pg/ml (0-14)
--- NOTE | 2022-05-09 16:01 | Electrocardiogram Report ---
Test Reason : Blood Pressure : / mmHG Vent. Rate : 137 BPM Atrial Rate : 138 BPM P-R Int : 000 ms QRS Dur : 112 ms QT Int : 364 ms P-R-T Axes : 000 077 -47 degrees QTc Int : 549 ms Poor data quality, interpretation may be adversely affected Atrial fibrillation versus flutter Low voltage QRS Incomplete right bundle branch block Abnormal ECG When compared with ECG of 14-MAY-2017 11:58, Incomplete right bundle branch block is now Present Confirmed by Kristofer Robison ([id number]) on 05/09/2022 4:01:25 PM Referred By: Confirmed By:Fred Robison
[2022-05-09 16:07] LABS: Alanine Aminotransferase 9 U/L (7-52); Albumin Globulin Ratio 1.2 (0.9-2); Albumin Level 3.8 gm/dl (3.4-5.0); Alkaline Phosphatase 49 U/L (34-104); Bilirubin,Total 0.7 mg/dl (0.2-1.0); Blood Urea Nitrogen 22 mg/dl (6-23); Calcium 9.2 mg/dl (8.5-10.1); Carbon Dioxide 24 mmol/L (21-32); Chloride 101 mmol/L (98-107); Est GFR (African American) 45.8 ml/min; Est GFR (Non-African American) 39.5 ml/min; Globulin 3.1 gm/dl (2.5-4.0); Glucose 136 mg/dl (70-99(Fasting)); Lipase 9 U/L (11-82); Total Protein 6.9 gm/dl (6.0-8.3)
--- NOTE | 2022-05-09 16:13 | CT Scan Report ---
CT OF THE ABDOMEN AND PELVIS WITHOUT CONTRAST CLINICAL HISTORY: Nausea, vomiting and epigastric pain. COMPARISON STUDY: KUB May 02, 2017. CT of the abdomen and pelvis March 30, 2017. TECHNIQUE: Axial images of the abdomen and pelvis were obtained without IV contrast. Images were revi ewed in the axial, sagittal, and coronal planes. Automated exposure control was utilized for the pia dy. A dose lowering technique was utilized adhering to the principles of ALARA. FINDINGS: A hiatal hernia with largely intrathoracic stomach is noted. This is similar in appearance to CT of March 30, 2017. No pneumatosis, free air or portal venous gas is present. The liver is cirr hotic. No hepatic lesions are identified on this exam. A small amount of perihepatic ascites is noted . Spleen, adrenal glands, kidneys and pancreas are unremarkable on unenhanced CT. There is no biliary or pancreatic ductal dilatation. There is no hydronephrosis. Extensive aortoiliac calcified plaque i s noted. A small amount of ascites within the pelvis is noted. Multiple loops of moderately dilated f luid-filled proximal small bowel are noted with small bowel feces sign. Discrete transition point is noted within the left lower quadrant on axial image [id number]. There is associated mesenteric stranding and a small amount of ascites. Distal small bowel is decompressed. There is no lymphadenopathy. No a cute fracture or suspicious lesion within the visualized skeletal structures is present. IMPRESSION: 1. Findings consistent with a moderate to high-grade small bowel obstruction with transition point wi thin the left lower quadrant. Associated mesenteric stranding and a small amount of ascites. No pneum atosis, free air or portal venous gas. 2. Cirrhosis. 3. Large hiatal hernia with intrathoracic stomach, unchanged. ACT 112: Negative or not required by law. Electronically signed by: Pedro Pablo Obregon M.D. 05/09/2022 4:11 PM
[2022-05-09] MEDS ORDERED: STAT IV Infusion **Titration per Protocol STA (16:23)
[2022-05-09] MEDS ORDERED: dilTIAZem HCl 5 MG/ML 5 ML VIAL IV STA (16:23)
[2022-05-09] MEDS: dilTIAZem HCL 125 MG in DEXTROSE 5% 100 ML IV SCH (17:07)
--- NOTE | 2022-05-09 17:10 | XRay Report ---
XR chest 1V portable HISTORY: NG tube placement. COMPARISON: Abdomen and pelvis CT 05/09/2022. FINDINGS: Interval placement of an NG tube. The tip is difficult to identify but is likely located wi thin the hiatus hernia. The lungs are clear. No pleural effusions. No pneumothorax. IMPRESSION: The tip of the nasogastric tube is difficult to identify but is likely located within the hiatus kishan ia. ACT 112: Negative or not required by law. Electronically signed by: Glen John M.D. 05/09/2022 5:09 PM
[2022-05-09 17:12] LABS: Magnesium 2.2 mg/dl (1.7-2.4); Potassium 4.1 mmol/L (3.5-5.1)
--- NOTE | 2022-05-09 17:48 | History & Physical Report ---
Date of Service May 09, 2022 Assessment & Plan (1) SBO (small bowel obstruction): Plan: Patient is 86-year-old female with PMH HTN, dyslipidemia, CAD, CKD III, GERD, anxiety, carotid aneurysm, hiatal hernia, history of colon CA s/p sigmoid resection in 2001 presented to ER with complaint of Nausea, vomiting, epigastric pain x 1 day. Last BM yesterday. Reported history SBO many years ago treated conservatively. CT Abd/pelvis: 1. Findings consistent with a moderate to high-grade small bowel obstruction with transition point within the left lower quadrant. Associated mesenteric stranding and a small amount of ascites. No pneumatosis, free air or portal venous gas. 2. Cirrhosis. 3. Large hiatal hernia with intrathoracic stomach, unchanged. In ER NG tube placed Continue NG tube KUB in AM Gentle IVF NPO General surgery consult. ER physician spoke to flight operations engineer CBC, BMP in am (2) Atrial fibrillation with rapid ventricular response: Plan: In ER found to be in atrial fibrillation RVR with rate up to 130s No known prior history Afib Patient denies shortness of breath, chest pain, shortness of breath, dizziness TSH, magnesium, potassium WNL. Initial troponin negative In ER Cardizem bolus and drip started, continue Cardizem drip, Start IV heparin Start metoprolol tartrate 25 mg twice daily Echo Cardiology consult (3) CKD (chronic kidney disease), stage III: Plan: Cr: 1.2. Baseline: 1.3-1.4 Monitor renal functions, avoid nephrotoxic agents when possible (4) HTN (hypertension): Plan: Hold atenolol and start metoprolol tartrate secondary to afib RVR Continue losartan with holding parameters Hold lasix and felodipine for now (5) Dyslipidemia: Plan: Hold atorvastatin for now (6) TIA (transient ischemic attack): Plan: On Aggrenox at home Prior record review that pt had suspected TIA while was already on Plavix and aspirin and was changed to Aggrenox Hold Aggrenox while on IV Heparin and start daily aspirin for now (7) Carotid artery aneurysm: Plan: Followed with neurology outpatient (8) Colon cancer: Plan: S/P sigmoid resection in 2001 (9) GERD (gastroesophageal reflux disease): Plan: History hiatal hernia Continue PPI (10) Anxiety: Plan: Continue lorazepam prn DVT Prophylaxis On IV heparin Full Code as per discussion with pt Follows with Dr Dolan for routine care Pt was seen and care coordinated with Dr Walker. See addendum History of Present Illness Chief Complaint: Abdominal pain Primary Care Provider: Otto Dolan MD Patient is 86-year-old female with PMH HTN, dyslipidemia, CAD, CKD III, GERD, anxiety, carotid aneurysm, hiatal hernia, history of colon CA s/p sigmoid resection in 2001 presented to ER with complaint of epigastric pain x 1 day. C/O nausea and vomiting. Vomited 4-6 times since yesterday. Reports epigastric pain and pressure. Last BM yesterday and reports was loose. Unsure if passing flatus today. Reports history SBO over 30 years ago. Denies fever/chills, diaphoresis, hematemesis, melena, hematochezia, HANNA, dizziness, syncope, vision changes, neck pain, CP, SOB, orthopnea, palpitations, cough, sore throat, choking, otalgia, rhinorrhea, paresthesias, weakness, extremity weakness, extremity edema, rashes, urinary symptoms. Thinks last colonoscopy was in 2016. In ER found to be in a-fib RVR and was started on Cardizem drip. Also found to have SBO. NG tube placed. Allergies Allergy/AdvReac Type Severity Reaction Status Date / Time hydralazine AdvReac Intermediate HYPOTENSION Verified 05/09/22 17:13 lactose AdvReac Intermediate GI UPSET Verified 05/09/22 17:13 Home Medications Medication Instructions Recorded Confirmed Type aluminum-mag hydroxide-simethicone 10 ml PO DIRECTED PRN 05/09/22 05/09/22 History 200 mg-200 mg-20 mg/5 mL oral susp HEARTBURN/INDIGESTION aspirin 25 mg-dipyridamole 200 mg 1 cap PO BID 05/09/22 05/09/22 History capsule,ext.release 12 hr multiphase atenolol 100 mg tablet 100 mg PO HS 05/09/22 05/09/22 History atorvastatin 20 mg tablet 20 mg PO HS 05/09/22 05/09/22 History cyanocobalamin (vitamin B-12) 1,000 mcg PO DAILY 05/09/22 05/09/22 History 1,000 mcg tablet (Vitamin B-12) felodipine 5 mg tablet,extended 5 mg PO QAM 05/09/22 05/09/22 History release 24 hr furosemide 20 mg tablet 20 mg PO DAILY 05/09/22 05/09/22 History lorazepam 1 mg tablet 1 mg PO TID PRN Anxiety 05/09/22 05/09/22 History losartan 100 mg tablet 100 mg PO DAILY 05/09/22 05/09/22 History ondansetron HCl 4 mg tablet 4 mg PO Q8H PRN NAUSEA/VOMITING 05/09/22 05/09/22 History pantoprazole 40 mg tablet,delayed 40 mg PO QAM 05/09/22 05/09/22 History release Past Med/Surg History Medical History Anxiety Carotid artery aneurysm CKD (chronic kidney disease), stage III Colon cancer Dyslipidemia GERD (gastroesophageal reflux disease) Hiatal hernia HTN (hypertension) TIA (transient ischemic attack) Surgical History History of cataract surgery History of colectomy History of colonoscopy Family History Other Family history non-contributory Social History Smoking Status: Never smoker Hx Alcohol Use: No Hx Substance Use: No Preferred Language: Irish Communication Ability: Effective Beliefs That Will Affect Care: None marital status: / Current Living Situation: Family Current Living Situation Comment: With two sons Feels Safe at Home: Yes Safety Concerns: Feels Safe At This Time Assistive Devices: Walker Review of Systems Review of Systems: All systems reviewed & are unremarkable except as noted in HPI & below Physical Exam Physical Exam: General: no distress, obese Head: normocephalic, atraumatic Eyes: conjunctiva non-injected, anicteric ENT: normal inspection external ears, nose, mucous membranes moist +NG tube in place Neck: supple, trachea midline Lungs: clear, no respiratory distress, no wheezing/rhonchi/rales CV: irregularly irregular, rate 120, no murmur, no pretibial edema Abd: +protuberant, hypoactive BS, soft, +tenderness to palpation epigastric Ext: no cyanosis, no calf tenderness Neuro: A&O x 3, no focal deficits noted, normal affect Skin: warm, dry Results & Data Results & Data ([facility]) Vital Signs (Past 12 Hours) Vital Signs Temp Pulse Pulse Resp BP BP Pulse Ox 05/09/22 16:00 140 H 18 130/104 H 97 05/09/22 15:08 98 05/09/22 15:01 36.7 C 134 H 19 143/98 H 98 O2 Del Method 05/09/22 16:00 Room Air 05/09/22 15:08 Room Air 05/09/22 15:01 Room Air Laboratory Results Short CBC 05/09/22 Range/Units 15:00 WBC 9.96 (4.8-10.8) K/ul Hgb 14.5 (12.0-16.0) g/dl Hct 43.6 (34.1-44.9) % Plt Count 260 (130-400) K/uL BMP 05/09/22 05/09/22 15:00 16:28 Sodium TNP 136 Potassium TNP 4.1 Chloride 101 Carbon Dioxide 24 BUN 22 Creatinine 1.22 H Glucose 136 H Calcium 9.2 Liver Function 05/09/22 05/09/22 Range/Units 15:00 16:28 Total Bilirubin 0.7 (0.2-1.0) mg/dl AST TNP 16 ALT 9 (7-52) U/L Alkaline Phosphatase 49 (34-104) U/L Albumin 3.8 (3.4-5.0) gm/dl Urine 05/09/22 Range/Units 20:06 Urine Color Yellow Urine Appearance Clear (Clear) Urine pH 6.0 (4.5-7.5) Ur Specific [place] 1.019 (1.000-1.030) Urine Protein Trace H (Negative) Urine Glucose (UA) Negative (Negative) Diagnostic Findings Abdomen/Pelvis CT 05/09/22 15:03 CT OF THE ABDOMEN AND PELVIS WITHOUT CONTRAST CLINICAL HISTORY: Nausea, vomiting and epigastric pain. COMPARISON STUDY: KUB May 02, 2017. CT of the abdomen and pelvis March 30, 2017. TECHNIQUE: Axial images of the abdomen and pelvis were obtained without IV cont rast. Images were reviewed in the axial, sagittal, and coronal planes. Automated exposure control was utilized for the study. A dose lowering technique was utilized adhering to the principles of ALARA. FINDINGS: A hiatal hernia with largely intrathoracic stomach is noted. This is similar in appearance to CT of March 30, 2017. No pneumatosis, free air or portal venous gas is present. The liver is cirrhotic. No hepatic lesions are identified on this exam. A small amount of perihepatic ascites is noted. Spleen, adrenal glands, kidneys and pancreas are unremarkable on unenhanced CT. There is no biliary or pancreatic ductal dilatation. There is no hydronephrosis. Extensive aortoiliac calcified plaque is noted. A small amount of ascites within the pelvis is noted. Multiple loops of moderately dilated fluid-filled proximal small bowel are noted with small bowel feces sign. Discrete transition point is noted within the left lower quadrant on axial image [id number]. There is associated mesenteric stranding and a small amount of ascites. Distal small bowel is decompressed. There is no lymphadenopathy. No acute fracture or suspicious lesion within the visualized skeletal structures is present. IMPRESSION: 1. Findings consistent with a moderate to high-grade small bowel obstruction with transition point within the left lower quadrant. Associated mesenteric stranding and a small amount of ascites. No pneumatosis, free air or portal venous gas. 2. Cirrhosis. 3. Large hiatal hernia with intrathoracic stomach, unchanged. ACT 112: Negative or not required by law. Electronically signed by: Pedro Pablo Obregon M.D. 05/09/2022 4:11 PM Chest X-Ray 05/09/22 15:10 XR chest 1V portable HISTORY: Generalized abdominal pain. Vomiting. COMPARISON: Chest 05/14/2017. FINDINGS: No pneumothorax. No pleural effusions. No focal lung consolidations to suggest a pneumonia. No evidence for pulmonary edema. A few small bibasilar linear densities favor subsegmental atelectasis. Large hiatus hernia with a mildly distended gastric bubble. The heart is top normal in size. There are calcifications within the aortic knob. IMPRESSION: Large hiatus hernia with a distended gastric bubble. This has progressed in the interval. This will be better assessed on the same day abdomen and pelvis CT. ACT 112: Negative or not required by law. Electronically signed by: Glen John M.D. 05/09/2022 3:38 PM Chest X-Ray 05/09/22 16:56 XR chest 1V portable HISTORY: NG tube placement. COMPARISON: Abdomen and pelvis CT 05/09/2022. FINDINGS: Interval placement of an NG tube. The tip is difficult to identify but is likely located within the hiatus hernia. The lungs are clear. No pleural effusions. No pneumothorax. IMPRESSION: The tip of the nasogastric tube is difficult to identify but is likely located within the hiatus hernia. ACT 112: Negative or not required by law. Electronically signed by: Glen John M.D. 05/09/2022 5:09 PM ECG Rhythm: atrial fibrillation Findings: + nonspecific-ST abn (Anterolateral,inferior) Additional Comments: incomplete RBBB Code Status & VTE Plan VTE Prophylaxis Plan VTE Prophylaxis will be ordered: Yes Supervising Physician Co-Signing Physician Notes Pt was seen and examined. Agreed with Kemi ISSA exam, assessment and plan. 86-year-old female with PMH HTN, dyslipidemia, CAD, CKD III, GERD, anxiety, carotid aneurysm, hiatal hernia, history of colon CA s/p sigmoid resection in 2001 presented to ER with complaint of epigastric pain associated with nausea and vomiting. CT abdomen/pelvis showedFindings consistent with a moderate to high-grade small bowel obstruction with transition point within the left lower quadrant. Associated mesenteric stranding and a small amount of ascites.Large hiatal hernia with intrathoracic stomach, unchanged. NG tube placed in the ER and pt felt much better. Will get a KUB in am. She was also found with Afib and RVR. Cardizem drip was started in the ER. Will start on Heparin drip and will add Metoprolol. Will get a resting echo. cardio eval. Will monitor in tele. MD Aaron
[2022-05-09] MEDS ORDERED: Heparin IV Adult Wt-Based Standard *NO* Bolus Protocol IV ONE (19:36)
--- NOTE | 2022-05-09 19:38 | Surgery Consultation ---
Date of Consultation May 09, 2022 Assessment & Plan (1) SBO (small bowel obstruction): The patient has been admitted on the hospitalist service. We recommend proceeding as follows: Provide analgesics Provide antiemetics Provide IV fluid for hydration Continue n.p.o. status with NG tube decompression. I did discuss with the patient that we will attempt to treat her in a conservative manner and preferably avoid surgery. If conservative manner is improved and she has return of bowel function by passing flatus or moving her bowels we will then consider removing NG tube and advancing her diet. Additional plans as directed by the primary service. A Cardizem drip has been initiated for atrial fibrillation A heparin drip has been initiated for anticoagulation secondary to her atrial fibrillation. If any procedural intervention is required coordination with discontinuing heparin drip will have to be arranged. Supervising Physician Co-Signing Physician Notes I personally saw and evaluated the patient with Ciro Martines PA-C and agree with the assessment and plan. 86-year-old female with small bowel obstruction CT images and results personally viewed by me Patient is being admitted to the medical team Would place NG tube, keep n.p.o. No plans for any surgical intervention at this time We will continue to monitor the patient's abdominal exam for any signs of mesenteric ischemia Will follow History of Present Illness Reason for Consultation: Small bowel obstruction History of Present Illness This is an 86-year-old female who presented to the emergency department secondary to nausea and vomiting. The patient notes that she was feeling well yesterday until about 6:00. She experienced some nausea and vomiting that persisted throughout the evening. Because of this she presented to the emergency department. She did note some minor periumbilical abdominal pain but notes that this was severe and nonradiating without modifying factors. Patient reports that she did have some type of bowel resection many years ago (she could not tell me the exact year). She said that this was done due to a cancerous lesion. She does note that she did suffer a small bowel obstruction approximately 10 years ago and this was treated successfully in a conservative manner. She has not had a small bowel obstruction since that time. Today in the emergency department the patient had labs and imaging which I independent reviewed. A CT scan of the abdomen pelvis showed findings con cerning for a moderate to high-grade small bowel obstruction with a transition point in the left lower quadrant. There is a small amount of ascites as well as a small amount of mesenteric stranding noted. There is no portal venous gas, pneumoperitoneum, or pneumatosis intestinalis. Patient did have a large hiatal hernia noted as well. A chest x-ray showed a large hiatal hernia with no evidence of pneumonia. Labs include a CBC her white blood cell count, hemoglobin, hematocrit, and platelet count were all normal. Chemistry profile showed sodium, potassium, and BUN were normal. Her creatinine was 1.2 which was near her baseline. There is no significant elevation of patient's LFTs or lipase. A COVID test was negative. In the emergency department and NG tube was inserted. A confirmatory chest x- ray showed the tip of the NG tube appeared to be in her hiatal hernia. Since arrival to the emergency department the patient notes that she has not had any further nausea and vomiting. She currently denies any abdominal pain and at the time of my exam she was in no distress. Allergies Allergy/AdvReac Type Severity Reaction Status Date / Time hydralazine AdvReac Intermediate HYPOTENSION Verified 05/09/22 17:13 lactose AdvReac Intermediate GI UPSET Verified 05/09/22 17:13 Home Medications Medication Instructions Recorded Confirmed Type aluminum-mag hydroxide-simethicone 10 ml PO DIRECTED PRN 05/09/22 05/09/22 History 200 mg-200 mg-20 mg/5 mL oral susp HEARTBURN/INDIGESTION aspirin 25 mg-dipyridamole 200 mg 1 cap PO BID 05/09/22 05/09/22 History capsule,ext.release 12 hr multiphase atenolol 100 mg tablet 100 mg PO HS 05/09/22 05/09/22 History atorvastatin 20 mg tablet 20 mg PO HS 05/09/22 05/09/22 History cyanocobalamin (vitamin B-12) 1,000 mcg PO DAILY 05/09/22 05/09/22 History 1,000 mcg tablet (Vitamin B-12) felodipine 5 mg tablet,extended 5 mg PO QAM 05/09/22 05/09/22 History release 24 hr furosemide 20 mg tablet 20 mg PO DAILY 05/09/22 05/09/22 History lorazepam 1 mg tablet 1 mg PO TID PRN Anxiety 05/09/22 05/09/22 History losartan 100 mg tablet 100 mg PO DAILY 05/09/22 05/09/22 History ondansetron HCl 4 mg tablet 4 mg PO Q8H PRN NAUSEA/VOMITING 05/09/22 05/09/22 History pantoprazole 40 mg tablet,delayed 40 mg PO QAM 05/09/22 05/09/22 History release Patient History Medical History Anxiety Carotid artery aneurysm CKD (chronic kidney disease), stage III Colon cancer Dyslipidemia GERD (gastroesophageal reflux disease) Hiatal hernia HTN (hypertension) TIA (transient ischemic attack) Surgical History History of cataract surgery History of colectomy History of colonoscopy Family History Other Family history non-contributory Social History Smoking Status: Never smoker Hx Alcohol Use: No Hx Substance Use: No Preferred Language: Indonesian Communication Ability: Effective Beliefs That Will Affect Care: None marital status: / Current Living Situation: Family Current Living Situation Comment: With two sons Feels Safe at Home: Yes Safety Concerns: Feels Safe At This Time Assistive Devices: Walker Review of Systems Constitutional: no fever and no chills Eyes: no eye pain Ear, Nose, Mouth, Throat: no ear pain Respiratory: no cough Cardiovascular: no chest pain Gastrointestinal: as per Subjective / HPI, + nausea and + vomiting; no abdominal pain Genitourinary: no dysuria Musculoskeletal: no back pain Integumentary: no rash Neurologic: no localized weakness Physical Exam Constitutional: WD/WN, vitals as above Eyes: no conjunctival abnormality ENMT: Ears: no hearing impairment and no external ear abnormality Mouth: no oropharynx abnormality NG tube is in place draining bilious material Neck: trachea midline Respiratory: normal respiratory effort; no respiratory distress and no labored breathing Cardiovascular: Rate/Rhythm: + irregularly irregular Gastrointestinal (Abdomen): Abdomen is soft, nonrigid, nondistended, nontender to palpation. There is no rebound tenderness or guarding. I did not appreciate any hernias. Bowel sounds are present. Patient had a well-healed midline incision. Musculoskeletal: No calf tenderness. Patient's feet are cool but there nonmottled. Skin: no rashes Neurologic: moves all extremities Psychiatric: A+Ox3, euthymic affect Results & Data ([facility]) Vital Signs (Past 12 Hours) Vital Signs Temp Pulse Pulse Resp BP BP Pulse Ox 05/09/22 18:00 120 H 18 145/75 H 98 05/09/22 16:00 140 H 18 130/104 H 97 05/09/22 15:08 98 05/09/22 15:01 36.7 C 134 H 19 143/98 H 98 O2 Del Method 05/09/22 18:00 05/09/22 16:00 Room Air 05/09/22 15:08 Room Air 05/09/22 15:01 Room Air PG Care Time/CCT Total # of Minutes Spent Total Time Spent with Patient: Total time spent is greater than 50% in coordination of care (as documented) at patient's floor/unit and/or counseling patient: Coding Level of Care Code 03945 Inpt Consult Level 5 Diagnoses SBO (small bowel obstruction) K56.609
[2022-05-09 20:29] LABS: Appearance Urine Clear (Clear); Bacteria Urine Automated Negative (Negative); Bilirubin Urine Negative (Negative); Blood Urine Negative (Negative); Color Urine Yellow; Epithelial Cell Urine Auto 20-30 /lpf (0-5); Glucose Urine UA Negative (Negative); Ketones Urine Trace (Negative); Leukocyte Esterase Urine Trace (Negative); Nitrite Urine Negative (Negative); Protein Urine Trace (Negative); RBC Urine Automated 0-4 /hpf (0-4); Specific Gravity Urine 1.019 (1.000-1.030); Urobilinogen Urine Negative (Negative)
[2022-05-09] MEDS ORDERED: SODIUM CHLORIDE 0.9% 1000ML 1,000 ML IV SCH (20:30)
[2022-05-09] MEDS ORDERED: ONDANSETRON INJ 2 MG/ML 2 ML VIAL IV PRN (20:30)
[2022-05-09 21:16] LABS: Partial Thromboplastin Ratio 0.9; Partial Thromboplastin Time 25.8 Seconds (21.0-31.0)
[2022-05-09] MEDS: HEPARIN SODIUM/DEXTROSE 25,000 UNITS/500 ML BAG IV SCH (21:28)
[2022-05-09] MEDS: METOPROLOL TARTRATE 25 MG TAB PO SCH (22:21)
[2022-05-09] MEDS: LORazepam 1 MG TAB PO PRN (22:21)
[2022-05-09] MEDS ORDERED: INFLUENZA VACCINE HIGH DOSE PF 65+ 0.7 ML SYR IM ONE (22:40)
[2022-05-10 03:49] LABS: Hematocrit (blood only) 40.9 % (34.1-44.9); Hemoglobin 13.5 g/dl (12.0-16.0); Mean Corpuscular Hemoglobin 30.9 pg (25.0-34.0); Mean Corpuscular Volume 93.6 fL (80.0-100.0); Mean Platelet Volume 9.6 fL (9.4-12.3); Platelet Count 235 K/uL (130-400); RDW Coefficient of Variation 13.4 % (11.5-14.5); RDW Standard Deviation 45.9 fL (36.4-46.3); Red Blood Count 4.37 M/uL (3.93-5.22); White Blood Count 6.88 K/ul (4.8-10.8)
[2022-05-10 04:12] LABS: BUN Creatinine Ratio 20.2 (10-20); Calcium 8.8 mg/dl (8.5-10.1); Creatinine Clr Calc Pharmacy 35.2 ml/min; Est GFR (African American) 55.6 ml/min; Est GFR (Non-African American) 47.9 ml/min; Potassium 4.4 mmol/L (3.5-5.1)
[2022-05-10 04:16] LABS: Partial Thromboplastin Ratio 2.3
[2022-05-10 04:20] LABS: Partial Thromboplastin Time 61.9 Seconds (21.0-31.0)
[2022-05-10] MEDS ORDERED: PROMETHAZINE HCL 6.25 MG in SODIUM CHLORIDE 0.9% 50 ML IV PRN (05:41)
[2022-05-10] MEDS ORDERED: PERFLUTREN LIPID MICROSPHERE (DEFINITY) IV ONE (07:02)
--- NOTE | 2022-05-10 08:17 | Electrocardiogram Report ---
Test Reason : Blood Pressure : / mmHG Vent. Rate : 108 BPM Atrial Rate : 104 BPM P-R Int : 000 ms QRS Dur : 120 ms QT Int : 388 ms P-R-T Axes : 000 081 -53 degrees QTc Int : 519 ms Poor data quality, interpretation may be adversely affected Atrial fibrillation with rapid ventricular response with premature ventricular or aberrantly conducte d complexes Low voltage QRS Right bundle branch block T wave abnormality, consider inferolateral ischemia Abnormal ECG Confirmed by Kristofer Robison ([id number]) on 05/10/2022 8:17:09 AM Referred By: REFERRED SELF Confirmed By:Fred Robison
[2022-05-10] MEDS: METOPROLOL TARTRATE 25 MG TAB PO SCH (08:35)
[2022-05-10] MEDS: LOSARTAN POTASSIUM 50 MG TAB PO SCH (08:36)
[2022-05-10] MEDS ORDERED: AMIODARONE IV BOLUS & DRIP IV STA (08:44)
[2022-05-10] MEDS ORDERED: STAT IV Infusion **Titration per Protocol STA (08:44)
[2022-05-10] MEDS ORDERED: 0.2 MICRON FILTER SET 1 EACH IV ONE (08:45)
[2022-05-10] MEDS ORDERED: AMIODARONE / D5W 150 MG/100 ML BAG IV STA (08:48)
--- NOTE | 2022-05-10 08:49 | Cardiology Consultation ---
Date of Consultation May 10, 2022 Assessment & Plan (1) Colon cancer: (2) GERD (gastroesophageal reflux disease): (3) CKD (chronic kidney disease), stage III: (4) SBO (small bowel obstruction): (5) Hiatal hernia: (6) Atrial fibrillation with rapid ventricular response: Plan The patient has been n.p.o. and has an NG tube in place, so I am uncertain as to the benefit of oral metoprolol. I will switch that over to IV metoprolol 5 mg every 6 hours. Also I think it was a short period of time, at least less than 48 hours that the patient had new onset atrial fibrillation. Plus she was started on IV heparin immediately upon admission to the emergency department. I think it would be reasonable to start her on amiodarone IV for both rate control and potentially spontaneous cardioversion to normal sinus rhythm. After the start of the amiodarone I will hold her diltiazem drip until we see her heart rate response. We will following with you during her hospital stay. History of Present Illness Attending Physician: Jc Walker MD History of Present Illness This is an elderly 86-year-old female who presented with nausea and vomiting and was found to have a small bowel obstruction. She also has a large hiatal hernia which is in her thoracic cavity. She has been seen by surgery who has recommended conservative management. Upon presentation to the emergency department she was noted to be in atrial fibrillation with RVR. She has been started on a diltiazem drip and oral metoprolol with some improvement in her heart rate. She was also immediately started on IV heparin. She currently is n.p.o. and has an NG tube in place. For her age, she has minimal cardiac history. Allergies Allergy/AdvReac Type Severity Reaction Status Date / Time hydralazine AdvReac Intermediate HYPOTENSION Verified 05/09/22 17:13 lactose AdvReac Intermediate GI UPSET Verified 05/09/22 17:13 Home Medications Medication Instructions Recorded Confirmed Type aluminum-mag hydroxide-simethicone 10 ml PO DIRECTED PRN 05/09/22 05/09/22 History 200 mg-200 mg-20 mg/5 mL oral susp HEARTBURN/INDIGESTION aspirin 25 mg-dipyridamole 200 mg 1 cap PO BID 05/09/22 05/09/22 History capsule,ext.release 12 hr multiphase atenolol 100 mg tablet 100 mg PO HS 05/09/22 05/09/22 History atorvastatin 20 mg tablet 20 mg PO HS 05/09/22 05/09/22 History cyanocobalamin (vitamin B-12) 1,000 mcg PO DAILY 05/09/22 05/09/22 History 1,000 mcg tablet (Vitamin B-12) felodipine 5 mg tablet,extended 5 mg PO QAM 05/09/22 05/09/22 History release 24 hr furosemide 20 mg tablet 20 mg PO DAILY 05/09/22 05/09/22 History lorazepam 1 mg tablet 1 mg PO TID PRN Anxiety 05/09/22 05/09/22 History losartan 100 mg tablet 100 mg PO DAILY 05/09/22 05/09/22 History ondansetron HCl 4 mg tablet 4 mg PO Q8H PRN NAUSEA/VOMITING 05/09/22 05/09/22 History pantoprazole 40 mg tablet,delayed 40 mg PO QAM 05/09/22 05/09/22 History release Patient History Medical History Anxiety Carotid artery aneurysm CKD (chronic kidney disease), stage III Colon cancer Dyslipidemia GERD (gastroesophageal reflux disease) Hiatal hernia HTN (hypertension) TIA (transient ischemic attack) Surgical History History of cataract surgery History of colectomy History of colonoscopy Family History Other Family history non-contributory Social History Smoking Status: Never smoker Hx Alcohol Use: No Hx Substance Use: No Preferred Language: Japanese Communication Ability: Effective Beliefs That Will Affect Care: None marital status: / Current Living Situation: Family Current Living Situation Comment: With two sons Feels Safe at Home: Yes Safety Concerns: Feels Safe At This Time Assistive Devices: Walker Review of Systems Review of Systems: Review of Systems: See HPI for pertinent positives. All other 10 point review of systems are negative. Physical Exam Physical Exam: General: no acute distress and stated age Head: normocephalic, no masses, lesions, tenderness or abnormalities Eyes: conjunctiva are pink and non-injected, sclera clear Neck: supple, no adenopathy, no bruits, normal jugular venous pulse, no hepatojugular reflux Chest: normal shape and normal respiratory effort Lungs: clear to auscultation and percussion Cardiac Exam: - irregular rate & rhythm, no murmurs gallops or rubs - normal S1, normal S2 Pulses: 2(+) throughout Abdomen: abdomen soft, non-tender, no abnormal masses and no hepatosplenomegaly Musculoskeletal: no gait disturbance, no joint inflammation, no deforming arthritis Extremities: no edema and no cyanosis Neuro: grossly normal exam Results & Data ([facility]) Vital Signs (Past 12 Hours) Vital Signs Temp Pulse Pulse Resp BP Pulse Ox O2 Del Method 05/10/22 08:00 36.8 C 88 18 132/79 96 05/10/22 03:37 36.9 C 95 H 16 121/81 94 Room Air 05/09/22 22:15 104 H 05/09/22 22:20 36.4 C L 117 H 16 138/93 95 Room Air Laboratory Results Laboratory Results - last 24 hr 05/09/22 05/09/22 05/09/22 15:00 15:00 15:00 WBC 9.96 RBC 4.62 Hgb 14.5 Hct 43.6 MCV 94.4 MCH 31.4 MCHC 33.3 RDW Std Deviation 46.1 RDW Coeff of Shyanne 13.4 Plt Count 260 MPV 10.1 Immature Gran % (Auto) 0.3 Neut % (Auto) 83.4 Lymph % (Auto) 9.4 [place] % (Auto) 6.4 Eos % (Auto) 0.1 Baso % (Auto) 0.4 Neut # (Auto) 8.30 H Lymph # (Auto) 0.94 L [place] # (Auto) 0.64 Eos # (Auto) 0.01 Baso # (Auto) 0.04 Immature Gran # (Auto) 0.03 H APTT PTT Ratio Sodium TNP Potassium TNP Chloride 101 Carbon Dioxide 24 Anion Gap TNP BUN 22 Creatinine 1.22 H Est Cr Clr Drug Dosing 30.0 Est GFR ( Amer) 45.8 Est GFR (Non-Af Amer) 39.5 BUN/Creatinine Ratio 18.0 Glucose 136 H Calcium 9.2 Magnesium TNP Total Bilirubin 0.7 AST TNP ALT 9 Alkaline Phosphatase 49 Troponin I High Sens 10.3 Total Protein 6.9 Albumin 3.8 Globulin 3.1 Albumin/Globulin Ratio 1.2 Lipase 9 L TSH 2.257 Urine Color Urine Appearance Urine pH Ur Specific [place] Urine Protein Urine Glucose (UA) Urine Ketones Urine Blood Urine Nitrite Urine Bilirubin Urine Urobilinogen Ur Leukocyte Esterase Urine WBC (Auto) Urine RBC (Auto) U Hyaline Cast (Auto) U Epithel Cells (Auto) Urine Bacteria (Auto) SARS-CoV-2, RNA, NAAT 05/09/22 05/09/22 05/09/22 15:00 15:15 16:28 WBC RBC Hgb Hct MCV MCH MCHC RDW Std Deviation RDW Coeff of Shyanne Plt Count MPV Immature Gran % (Auto) Neut % (Auto) Lymph % (Auto) [place] % (Auto) Eos % (Auto) Baso % (Auto) Neut # (Auto) Lymph # (Auto) [place] # (Auto) Eos # (Auto) Baso # (Auto) Immature Gran # (Auto) APTT 25.8 PTT Ratio 0.9 Sodium 136 Potassium 4.1 Chloride Carbon Dioxide Anion Gap BUN Creatinine Est Cr Clr Drug Dosing Est GFR ( Amer) Est GFR (Non-Af Amer) BUN/Creatinine Ratio Glucose Calcium Magnesium 2.2 Total Bilirubin AST 16 ALT Alkaline Phosphatase Troponin I High Sens Total Protein Albumin Globulin Albumin/Globulin Ratio Lipase TSH Urine Color Urine Appearance Urine pH Ur Specific [place] Urine Protein Urine Glucose (UA) Urine Ketones Urine Blood Urine Nitrite Urine Bilirubin Urine Urobilinogen Ur Leukocyte Esterase Urine WBC (Auto) Urine RBC (Auto) U Hyaline Cast (Auto) U Epithel Cells (Auto) Urine Bacteria (Auto) SARS-CoV-2, RNA, NAAT NEGATIVE 05/09/22 05/09/22 05/10/22 20:06 22:47 00:08 WBC RBC Hgb Hct MCV MCH MCHC RDW Std Deviation RDW Coeff of Shyanne Plt Count MPV Immature Gran % (Auto) Neut % (Auto) Lymph % (Auto) [place] % (Auto) Eos % (Auto) Baso % (Auto) Neut # (Auto) Lymph # (Auto) [place] # (Auto) Eos # (Auto) Baso # (Auto) Immature Gran # (Auto) APTT PTT Ratio Sodium Potassium Chloride Carbon Dioxide Anion Gap BUN Creatinine Est Cr Clr Drug Dosing Est GFR ( Amer) Est GFR (Non-Af Amer) BUN/Creatinine Ratio Glucose Calcium Magnesium Total Bilirubin AST ALT Alkaline Phosphatase Troponin I High Sens Cancelled 11.9 Total Protein Albumin Globulin Albumin/Globulin Ratio Lipase TSH Urine Color Yellow Urine Appearance Clear Urine pH 6.0 Ur Specific [place] 1.019 Urine Protein Trace H Urine Glucose (UA) Negative Urine Ketones Trace H Urine Blood Negative Urine Nitrite Negative Urine Bilirubin Negative Urine Urobilinogen Negative Ur Leukocyte Esterase Trace H Urine WBC (Auto) 1-5 Urine RBC (Auto) 0-4 U Hyaline Cast (Auto) 1-5 U Epithel Cells (Auto) 20-30 H Urine Bacteria (Auto) Negative SARS-CoV-2, RNA, NAAT 05/10/22 05/10/22 05/10/22 03:32 03:32 03:32 WBC 6.88 RBC 4.37 Hgb 13.5 Hct 40.9 MCV 93.6 MCH 30.9 MCHC 33.0 RDW Std Deviation 45.9 RDW Coeff of Shyanne 13.4 Plt Count 235 MPV 9.6 Immature Gran % (Auto) Neut % (Auto) Lymph % (Auto) [place] % (Auto) Eos % (Auto) Baso % (Auto) Neut # (Auto) Lymph # (Auto) [place] # (Auto) Eos # (Auto) Baso # (Auto) Immature Gran # (Auto) APTT PTT Ratio Sodium 137 Potassium 4.4 Chloride 104 Carbon Dioxide 25 Anion Gap 8 BUN 21 Creatinine 1.04 Est Cr Clr Drug Dosing 35.2 Est GFR ( Amer) 55.6 Est GFR (Non-Af Amer) 47.9 BUN/Creatinine Ratio 20.2 H Glucose 123 H Calcium 8.8 Magnesium Total Bilirubin AST ALT Alkaline Phosphatase Troponin I High Sens 11.5 Total Protein Albumin Globulin Albumin/Globulin Ratio Lipase TSH Urine Color Urine Appearance Urine pH Ur Specific [place] Urine Protein Urine Glucose (UA) Urine Ketones Urine Blood Urine Nitrite Urine Bilirubin Urine Urobilinogen Ur Leukocyte Esterase Urine WBC (Auto) Urine RBC (Auto) U Hyaline Cast (Auto) U Epithel Cells (Auto) Urine Bacteria (Auto) SARS-CoV-2, RNA, NAAT 05/10/22 03:32 WBC RBC Hgb Hct MCV MCH MCHC RDW Std Deviation RDW Coeff of Shyanne Plt Count MPV Immature Gran % (Auto) Neut % (Auto) Lymph % (Auto) [place] % (Auto) Eos % (Auto) Baso % (Auto) Neut # (Auto) Lymph # (Auto) [place] # (Auto) Eos # (Auto) Baso # (Auto) Immature Gran # (Auto) APTT 61.9 H* PTT Ratio 2.3 Sodium Potassium Chloride Carbon Dioxide Anion Gap BUN Creatinine Est Cr Clr Drug Dosing Est GFR ( Amer) Est GFR (Non-Af Amer) BUN/Creatinine Ratio Glucose Calcium Magnesium Total Bilirubin AST ALT Alkaline Phosphatase Troponin I High Sens Total Protein Albumin Globulin Albumin/Globulin Ratio Lipase TSH Urine Color Urine Appearance Urine pH Ur Specific [place] Urine Protein Urine Glucose (UA) Urine Ketones Urine Blood Urine Nitrite Urine Bilirubin Urine Urobilinogen Ur Leukocyte Esterase Urine WBC (Auto) Urine RBC (Auto) U Hyaline Cast (Auto) U Epithel Cells (Auto) Urine Bacteria (Auto) SARS-CoV-2, RNA, NAAT Medications Administered Current Inpatient Medications Aspirin (Aspirin 81 Mg Ectab) 81 mg PO DAILY [facility] Stop: 06/09/22 08:59 Last Admin: 05/10/22 08:37 Dose: 81 mg Diltiazem HCl 125 mg/ Dextrose 125 mls @ 5 mls/hr IV .Q24H [facility]; Protocol Stop: 06/08/22 16:29 Last Titration: 05/10/22 03:13 Dose: 5 mg/hr, 5 mls/hr Heparin Sodium/Dextrose (Heparin Sodium/Dextrose) 25,000 units in 500 mls @ 21 mls/hr IV .[id number] [facility]; Protocol Stop: 06/08/22 19:59 Last Admin: 05/09/22 21:28 Dose: 1,050 units/hr, 21 mls/hr Sodium Chloride (Nss 1000ml) 1,000 mls @ 80 mls/hr IV .[id number] [facility] Stop: 05/10/22 08:59 Last Admin: 05/09/22 21:29 Dose: 80 mls/hr Promethazine HCl 6.25 mg/ (Sodium Chloride) 50.25 mls @ 201 mls/hr IV Q6H PRN PRN Reason: Nausea And Vomiting Stop: 06/09/22 05:40 Last Infusion: 05/10/22 06:39 Dose: Infused Pantoprazole Sodium 40 mg/ (Syringe) 10 mls @ 5 mls/min IV BID [facility] Stop: 06/09/22 08:59 Amiodarone HCl/Dextrose (Nexterone / D5w) 360 mg in 200 mls @ 33.333 mls/hr IV ONE ONE Stop: 05/10/22 14:59 Amiodarone HCl/Dextrose (Nexterone / D5w) 360 mg in 200 mls @ 16.667 mls/hr IV .Q12H [facility] Stop: 06/09/22 14:59 Amiodarone HCl/Dextrose (Nexterone / D5w) 150 mg in 100 mls @ 600 mls/hr IV NOW STA Stop: 05/10/22 08:57 Lorazepam (Lorazepam 1 Mg Tab) 1 mg PO TID PRN PRN Reason: Anxiety Stop: 06/08/22 20:29 Last Admin: 05/09/22 22:21 Dose: 1 mg Losartan Potassium (Losartan Potassium 50 Mg Tab) 100 mg PO DAILY [facility] Stop: 06/09/22 08:59 Last Admin: 05/10/22 08:36 Dose: 100 mg Metoprolol Tartrate (Metoprolol Tartrate 1 Mg/Ml Vial) 5 mg IV Q6 [facility] Stop: 06/09/22 11:59
--- NOTE | 2022-05-10 08:56 | XRay Report ---
KUB HISTORY: Acute generalized abdominal pain with reported small bowel obstruction SBO COMPARISON: CT abdomen and pelvis 05/09/2022 FINDINGS: There is persistent dilated air-filled loop of small bowel within the central abdomen measu ring up to 4.9 cm. No significant change from the prior study. Pelvic basin phleboliths. Hiatal herni a. No renal calculi. No ureteral calculi. No pneumoperitoneum or pneumatosis. Lumbar levoscoliosis w ith multilevel degenerative changes. No fracture. IMPRESSION: 1. Persistent small bowel obstruction appears unchanged from yesterday's exam. 2. Hiatal hernia. ACT 112: Negative or not required by law. The above report was generated using voice recognition software. It may contain grammatical, syntax o r spelling errors. Electronically signed by: Bayron Martinez M.D. 05/10/2022 8:55 AM
[2022-05-10] MEDS ORDERED: PANTOprazole 40 MG TAB PO SCH ×2 (09:00)
[2022-05-10] MEDS ORDERED: AMIODARONE / D5W 360 MG/200 ML BAG IV ONE (09:00)
[2022-05-10] MEDS ORDERED: ASPIRIN 81 MG ECTAB PO SCH (09:00)
--- NOTE | 2022-05-10 09:37 | Surgery Progress Note ---
Date of Service May 10, 2022 Assessment & Plan (1) SBO (small bowel obstruction): Plan: HR improved, labs stable, exam benign KUB-similar loop dilated bowel LUQ BID Protonix, NG placement not ideal due to HH Admission and Anticipated Discharge Date Admission Date: May 09, 2022 Supervising Physician Co-Signing Physician Notes I personally saw and evaluated the patient with Go Aquino PA-C and agree with the assessment and plan. 86-year-old female with small bowel obstruction Patient is feeling improved today and had a small amount of flatus and bowel movement We will continue NG tube at this time until she passes more consistent flatus We will continue to watch her for any signs of bowel ischemia Will follow Subjective abdomen feels a little better but c/o heartburn and NG irritation, no flatus Physical Exam Gastrointestinal (Abdomen): Inspection/Auscultation: + abdomen distended (slight) Percussion/Palpation: + abdomen tender (mild generalized) and abdomen soft; no guarding NG at 50 cm 200 cc Results & Data ([facility]) Vital Signs (Past 12 Hours) Vital Signs Temp Pulse Pulse Resp BP Pulse Ox O2 Del Method 05/10/22 08:00 36.8 C 88 18 132/79 96 05/10/22 03:37 36.9 C 95 H 16 121/81 94 Room Air 05/09/22 22:15 104 H 05/09/22 22:20 36.4 C L 117 H 16 138/93 95 Room Air PG Care Time/CCT Total # of Minutes Spent Total Time Spent with Patient: Total time spent is greater than 50% in coordination of care (as documented) at patient's floor/unit and/or counseling patient: Coding Level of Care Code 16808 Subseq Hosp Care Lvl 1 Diagnoses SBO (small bowel obstruction) K56.609
[2022-05-10] MEDS: dilTIAZem HCL 125 MG in DEXTROSE 5% 100 ML IV SCH (09:42)
[2022-05-10] MEDS: PANTOprazole 40 MG in SYRINGE 0 ML IV SCH ×2 (09:43→21:07)
[2022-05-10] MEDS: METOPROLOL TARTRATE 1 MG/ML VIAL IV SCH ×2 (11:26→18:08)
[2022-05-10] MEDS: AMIODARONE / D5W 360 MG/200 ML BAG IV SCH (16:24)
--- NOTE | 2022-05-10 16:49 | Hospitalist Progress Note ---
Date of Service May 10, 2022 Assessment & Plan (1) SBO (small bowel obstruction): Plan: Patient is 86-year-old female with PMH HTN, dyslipidemia, CAD, CKD III, GERD, anxiety, carotid aneurysm, hiatal hernia, history of colon CA s/p sigmoid resection in 2001 presented to ER with complaint of Nausea, vomiting, epigastric pain x [address] abd/pelvis showed Findings consistent with a moderate to high- grade small bowel obstruction with transition point within the left lower quadrant. Associated mesenteric stranding and a small amount of ascites. Large hiatal hernia with intrathoracic stomach, unchanged. KUB showed Persistent small bowel obstruction appears unchanged from yesterday's exam. Surgery on board - recommended to continue NG tube Continue gentle IVF hydration Continue monitor electrolytes Continue monitor closely (2) Atrial fibrillation with rapid ventricular response: Plan: In ER found to be in atrial fibrillation RVR with rate up to 130s No known prior history Afib Continue IV heparin drip cardiology on board IV cardizem drip changed to IV amiodarone drip Metoprolol changed to IV metoprolol Continue monitor in tele (3) CKD (chronic kidney disease), stage III: Plan: Cr: 1.02 . Baseline: 1.3-1.4 Monitor renal functions, avoid nephrotoxic agents when possible (4) HTN (hypertension): Plan: Hold atenolol Continue metoprolol tartrate secondary to afib RVR Continue losartan with holding parameters Continue to hold lasix and felodipine BP stable (5) Dyslipidemia: Plan: Hold atorvastatin for now (6) TIA (transient ischemic attack): Plan: On Aggrenox at home Prior record review that pt had suspected TIA while was already on Plavix and a spirin and was changed to Aggrenox Hold Aggrenox while on IV Heparin Continue aspirin (7) Carotid artery aneurysm: Plan: Followed with neurology outpatient (8) Colon cancer: Plan: S/P sigmoid resection in 2001 (9) GERD (gastroesophageal reflux disease): Plan: History hiatal hernia Continue PPI (10) Anxiety: Plan: Continue lorazepam prn DVT Prophylaxis On IV heparin Admission and Anticipated Discharge Date Admission Date: May 09, 2022 Subjective Pt was seen and examined for follow up of Afib and SBO Lying in bed with no acute distress Pt said that her symptoms improved She said that she is having irritation from the NG tube Denies any chest pain, palpitation, dizziness and SOB Review of Systems Review of Systems: All systems reviewed & are unremarkable except as noted in Subjective Physical Exam Physical Exam: General- No acute distress Head- atraumatic Eyes- PERRL, EOMI, ENT- oropharynx clear, +NG tube in place Neck- supple, no JVD Lungs- clear to auscultation Heart- irregular rhythm; no murmur Abdomen- normal bowel sounds, soft, nontender Extremities- no calf tenderness Neuro- alert, oriented x 3; PERRL, EOMI; no facial palsy; no dysarthria Skin- warm & dry Results & Data Results & Data ([facility]) Vital Signs (Past 12 Hours) Vital Signs Temp Pulse Pulse Resp BP BP Pulse Ox 05/10/22 14:00 37.0 C 97 H 20 108/70 98 05/10/22 11:00 36.7 C 79 18 101/66 97 05/10/22 11:26 103 H 115/67 05/10/22 08:00 36.8 C 88 18 132/79 96
[2022-05-10] MEDS: HEPARIN SODIUM/DEXTROSE 25,000 UNITS/500 ML BAG IV SCH (21:08)
[2022-05-11] MEDS: METOPROLOL TARTRATE 1 MG/ML VIAL IV SCH ×4 (00:13→20:29)
[2022-05-11] MEDS: AMIODARONE / D5W 360 MG/200 ML BAG IV SCH (04:05)
[2022-05-11] MEDS ORDERED: PANTOprazole 80 MG in DEXTROSE 5% 100 ML IV ONE (05:29)
--- NOTE | 2022-05-11 05:32 | Communication Note ---
Date of Service: May 11, 2022 Patient NGT drainage noted to be bloody. Patient also with hemoptysis. Patient thinks it is coming from her throat. No headache, no chest pain, no shortness of breath, no unusual belly pain. AP Hemoptysis ? from nasopharyngeal secretions UGI B versus swallowed blood Hold IV heparin and aspirin for now A.m. labs now PPI infusion if with hemoglobin drop from last baseline Solu-Medrol [address] chest Re: Hemoptysis Further management pending work-up results.
[2022-05-11] MEDS ORDERED: METOPROLOL TARTRATE 1 MG/ML VIAL IV SCH (05:35)
[2022-05-11] MEDS ORDERED: methylPREDNISolone 20 MG in SYRINGE 0 ML IV ONE (05:45)
[2022-05-11 06:08] LABS: Hematocrit (blood only) 37.8 % (34.1-44.9); Hemoglobin 12.6 g/dl (12.0-16.0); Mean Corpuscular Hgb Conc 33.3 g/dL (32.0-36.0); Mean Corpuscular Volume 92.9 fL (80.0-100.0); Mean Platelet Volume 9.8 fL (9.4-12.3); Platelet Count 198 K/uL (130-400); RDW Coefficient of Variation 13.4 % (11.5-14.5); RDW Standard Deviation 45.3 fL (36.4-46.3); Red Blood Count 4.07 M/uL (3.93-5.22); White Blood Count 4.67 K/ul (4.8-10.8)
[2022-05-11 06:24] LABS: BUN Creatinine Ratio 20.2 (10-20); Calcium 8.7 mg/dl (8.5-10.1); Creatinine Clr Calc Pharmacy 39.3 ml/min; Est GFR (African American) 62.8 ml/min; Est GFR (Non-African American) 54.2 ml/min; Potassium 3.7 mmol/L (3.5-5.1)
[2022-05-11 06:29] LABS: Partial Thromboplastin Ratio > 5.1
[2022-05-11] MEDS: PANTOprazole 40 MG in DEXTROSE 5% 100 ML IV SCH ×4 (06:39→23:24)
[2022-05-11] MEDS ORDERED: LACTATED RINGER'S 1,000 ML IV SCH (06:45)
[2022-05-11 06:52] LABS: Partial Thromboplastin Time > 139.0 Seconds (21.0-31.0)
[2022-05-11] MEDS: POTASSIUM CHLORIDE / WTR 10 MEQ/100 ML PLCT IV SCH ×4 (07:59→10:47)
[2022-05-11] MEDS: LOSARTAN POTASSIUM 50 MG TAB PO SCH ×2 (08:19→11:11)
--- NOTE | 2022-05-11 09:22 | Cardiology Progress Note ---
Date of Service May 11, 2022 Assessment & Plan (1) Colon cancer: (2) GERD (gastroesophageal reflux disease): (3) CKD (chronic kidney disease), stage III: (4) SBO (small bowel obstruction): (5) Hiatal hernia: (6) Atrial fibrillation with rapid ventricular response: Plan At this point I agree with stopping the patient's anticoagulation due to the bleeding from her NG tube. Hopefully that will be removed soon. I will discontinue the amiodarone and I think we should continue with metoprolol at an increased dose for rate control. After the amiodarone has been washed out, if the patient still has high heart rates then I would add digoxin. Otherwise the patient is stable. Her echocardiogram results are on the chart and considering her age her heart function is pretty good. Admission and Anticipated Discharge Date Admission Date: May 09, 2022 Subjective The patient had bleeding from her NG tube earlier this morning and her heparin was discontinued. She is currently sitting in a chair and appears to be comfortable. She states that she is passing some flatus and her abdominal distention has improved. Review of Systems Review of Systems: Review of Systems: See HPI for pertinent positives. All other 10 point review of systems are negative. Physical Exam Physical Exam: General: no acute distress and stated age Head: normocephalic, no masses, lesions, tenderness or abnormalities Eyes: conjunctiva are pink and non-injected, sclera clear Neck: supple, no adenopathy, no bruits, normal jugular venous pulse, no hepatojugular reflux Chest: normal shape and normal respiratory effort Lungs: clear to auscultation and percussion Cardiac Exam: - irregular rate & rhythm, no murmurs gallops or rubs - normal S1, normal S2 Pulses: 2(+) throughout Abdomen: abdomen soft, non-tender, no abnormal masses and no hepatosplenomegaly Musculoskeletal: no gait disturbance, no joint inflammation, no deforming arthritis Extremities: no edema and no cyanosis Neuro: grossly normal exam Results & Data ([facility]) Vital Signs (Past 12 Hours) Vital Signs Temp Pulse Pulse Resp BP BP Pulse Ox 05/11/22 07:43 36.4 C L 121 H 19 141/89 H 95 05/11/22 05:55 150 H 141/82 H 05/11/22 05:26 36.5 C 130 H 95 05/11/22 02:56 36.8 C 104 H 18 121/81 96 05/11/22 00:13 130 H 05/11/22 00:07 130 H 138/84 05/10/22 22:00 36.5 C 136 H 132/85 93 05/10/22 22:57 36.5 C 136 H 20 132/85 93 05/10/22 22:55 107 H O2 Del Method 05/11/22 07:43 Room Air 05/11/22 05:55 05/11/22 05:26 05/11/22 02:56 Room Air 05/11/22 00:13 05/11/22 00:07 05/10/22 22:00 Room Air 05/10/22 22:57 Room Air 05/10/22 22:55 Laboratory Results Laboratory Results - last 24 hr 05/11/22 05/11/22 05/11/22 05:49 05:49 05:49 WBC 4.67 L RBC 4.07 Hgb 12.6 Hct 37.8 MCV 92.9 MCH 31.0 MCHC 33.3 RDW Std Deviation 45.3 RDW Coeff of Shyanne 13.4 Plt Count 198 MPV 9.8 APTT > 139.0 H* PTT Ratio > 5.1 Sodium 134 L Potassium 3.7 Chloride 105 Carbon Dioxide 21 Anion Gap 8 BUN 19 Creatinine 0.94 Est Cr Clr Drug Dosing 39.3 Est GFR ( Amer) 62.8 Est GFR (Non-Af Amer) 54.2 BUN/Creatinine Ratio 20.2 H Glucose 109 H Calcium 8.7 Magnesium 2.0 Blood Type Antibody Screen 05/11/22 05:49 WBC RBC Hgb Hct MCV MCH MCHC RDW Std Deviation RDW Coeff of Shyanne Plt Count MPV APTT PTT Ratio Sodium Potassium Chloride Carbon Dioxide Anion Gap BUN Creatinine Est Cr Clr Drug Dosing Est GFR ( Amer) Est GFR (Non-Af Amer) BUN/Creatinine Ratio Glucose Calcium Magnesium Blood Type O Positive Antibody Screen NEGATIVE Medications Administered Current Inpatient Medications Aspirin (Aspirin 81 Mg Ectab) 81 mg PO DAILY [facility] Stop: 06/09/22 08:59 Last Admin: 05/10/22 08:37 Dose: 81 mg Diltiazem HCl 125 mg/ Dextrose 125 mls @ 5 mls/hr IV .Q24H [facility]; Protocol Stop: 06/08/22 16:29 Last Titration: 10/06/22 09:54 Dose: Infused Heparin Sodium/Dextrose (Heparin Sodium/Dextrose) 25,000 units in 500 mls @ 0 mls/hr IV .Q0M [facility]; Protocol Stop: 06/08/22 19:59 Last Titration: 05/11/22 05:21 Dose: 0 units/hr, 0 mls/hr Promethazine HCl 6.25 mg/ (Sodium Chloride) 50.25 mls @ 201 mls/hr IV Q6H PRN PRN Reason: Nausea And Vomiting Stop: 06/09/22 05:40 Last Infusion: 05/10/22 06:39 Dose: Infused Pantoprazole Sodium 40 mg/ (Dextrose) 100 mls @ 20 mls/hr IV Q5H [facility] Stop: 06/10/22 05:44 Last Admin: 05/11/22 06:39 Dose: 8 mg/hr, 20 mls/hr Potassium Chloride ([place] / Wtr) 10 meq in 100 mls @ 100 mls/hr IV Q1H [facility]; Protocol Stop: 05/11/22 10:44 Last Admin: 05/11/22 08:52 Dose: 100 mls/hr Lactated Ringer's (Lr) 1,000 mls @ 80 mls/hr IV .[id number] [facility] Stop: 06/10/22 06:44 Last Admin: 05/11/22 07:55 Dose: 80 mls/hr Lorazepam (Lorazepam 1 Mg Tab) 1 mg PO TID PRN PRN Reason: Anxiety Stop: 06/08/22 20:29 Last Admin: 05/09/22 22:21 Dose: 1 mg Losartan Potassium (Losartan Potassium 50 Mg Tab) 100 mg PO DAILY [facility] Stop: 06/09/22 08:59 Last Admin: 05/11/22 08:19 Dose: Not Given Metoprolol Tartrate (Metoprolol Tartrate 1 Mg/Ml Vial) 5 mg IV Q4 [facility] Stop: 06/10/22 11:59
--- NOTE | 2022-05-11 09:25 | XRay Report ---
SINGLE VIEW CHEST CLINICAL HISTORY: Dyspnea FINDINGS: An AP, portable, upright chest radiograph is compared to study dated 05/09/2022 and correlat ed with abdominal CT dated 05/09/2022. An enteric tube is in place. The heart is mildly enlarged notin g atherosclerotic calcification of the thoracic aorta. The pulmonary vasculature is noncongested . Ch ronic interstitial thickening is similar to previous. There is a large hiatal hernia with atelectasis at the left lung base. The lungs and pleural spaces are otherwise clear. No pneumothorax is seen. Th e skeletal structures are osteopenic. The bony thorax is grossly intact. IMPRESSION: 1. No active disease in the chest. 2. Large hiatal hernia with left basilar atelectasis. ACT 112: Negative or not required by law. Electronically signed by: Reginald Kwok M.D. 05/11/2022 9:24 AM
--- NOTE | 2022-05-11 10:16 | CT Scan Report ---
CT OF THE CHEST WITHOUT IV CONTRAST CLINICAL HISTORY: Hemoptysis. COMPARISON STUDY: Chest radiograph May 11, 2022. Chest radiograph May 09, 2022. CT DOSE: 434.29 mGy.cm TECHNIQUE: Axial images of the chest were obtained without IV contrast. Images were reviewed in the axial, sagittal, and coronal planes. IV contrast was not administered for this examination. Automat ed exposure control was utilized for the study. A dose lowering technique was utilized adhering to t he principles of ALARA. FINDINGS: There is no pneumothorax. Trace bilateral pleural effusions are noted with associated atel ectasis. Cardiomegaly is noted. There is no pericardial effusion. A large hiatal hernia with a largel y intrathoracic stomach is noted. There is trace ascites within the hernia sac. Tip of nasogastric tu be is within the distal esophagus, proximal to the hernia. No thoracic lymphadenopathy. There is no c onsolidation to suggest pneumonia. Mild interlobular septal thickening is present. A 4 mm subpleural right middle lobe nodule on axial image 193 of 346 is likely benign. No acute fracture or suspicious lesion within the bony thorax is noted. The liver is cirrhotic. Gallbladder is mildly distended. IMPRESSION: 1. Large hiatal hernia with intrathoracic stomach. Malpositioned nasogastric tube with tip within the distal esophagus. The tube could be repositioned. Trace fluid within the hernia sac. 2. Mild interstitial pulmonary edema with trace bilateral pleural effusions. 3. No consolidation to suggest pneumonia. ACT 112: Negative or not required by law. Electronically signed by: Pedro Pablo Obregon M.D. 05/11/2022 10:15 AM
--- NOTE | 2022-05-11 11:03 | Surgery Progress Note ---
Date of Service May 11, 2022 Assessment & Plan (1) SBO (small bowel obstruction): Plan: She denies abdominal pain and has had some return of bowel function NG tube was removed at bedside, will start clear liquids We will continue to monitor for her toleration of the diet Will follow Admission and Anticipated Discharge Date Admission Date: May 09, 2022 Subjective Patient seen and examined. Had some hemoptysis and a little bit of bleeding around her NG tube overnight and this morning. Denies any abdominal pain. States she had 3 bowel movements yesterday. She is passing lots of flatus today. Review of Systems Constitutional: no fever and no chills Gastrointestinal: no abdominal pain, no nausea and no vomiting Physical Exam Constitutional: WD/WN, vitals as above ENMT: NG tube in place with some dried blood in the naris Gastrointestinal (Abdomen): Inspection/Auscultation: abdomen normal to inspection; abdomen not distended Percussion/Palpation: abdomen soft; abdomen nontender and no guarding Results & Data ([facility]) Vital Signs (Past 12 Hours) Vital Signs Temp Pulse Pulse Resp BP BP Pulse Ox 05/11/22 07:43 36.4 C L 121 H 19 141/89 H 95 05/11/22 05:55 150 H 141/82 H 05/11/22 05:26 36.5 C 130 H 95 05/11/22 02:56 36.8 C 104 H 18 121/81 96 05/11/22 00:13 130 H 05/11/22 00:07 130 H 138/84 O2 Del Method 05/11/22 07:43 Room Air 05/11/22 05:55 05/11/22 05:26 05/11/22 02:56 Room Air 05/11/22 00:13 05/11/22 00:07 PG Care Time/CCT Total # of Minutes Spent Total Time Spent with Patient: Total time spent is greater than 50% in coordination of care (as documented) at patient's floor/unit and/or counseling patient: Coding Level of Care Code 63121 Subseq Hosp Care Lvl 1 Diagnoses SBO (small bowel obstruction) K56.609
[2022-05-11] MEDS: LORazepam 1 MG TAB PO PRN ×2 (11:15→20:30)
[2022-05-11 11:44] LABS: Hematocrit (blood only) 40.6 % (34.1-44.9); Hemoglobin 13.7 g/dl (12.0-16.0)
[2022-05-11 18:12] LABS: Hematocrit (blood only) 38.7 % (34.1-44.9)
--- NOTE | 2022-05-11 20:55 | Hospitalist Progress Note ---
Date of Service May 11, 2022 Assessment & Plan (1) SBO (small bowel obstruction): Plan: Patient is 86-year-old female with PMH HTN, dyslipidemia, CAD, CKD III, GERD, anxiety, carotid aneurysm, hiatal hernia, history of colon CA s/p sigmoid resection in 2001 presented to ER with complaint of Nausea, vomiting, epigastric pain x [address] abd/pelvis showed Findings consistent with a moderate to high- grade small bowel obstruction with transition point within the left lower quadrant. Associated mesenteric stranding and a small amount of ascites. Large hiatal hernia with intrathoracic stomach, unchanged. KUB showed Persistent small bowel obstruction appears unchanged from yesterday's exam. Surgery on board - recommended conservative management NG tube removed today Starting on clear liquid diet Continue monitor electrolytes Continue monitor closely (2) Atrial fibrillation with rapid ventricular response: Plan: In ER found to be in atrial fibrillation RVR with rate up to 130s No known prior history Afib Continue IV heparin drip cardiology on board IV cardizem drip changed to IV amiodarone drip Amiodarone drip discontinued Cardiology plan to start digoxin once the amiodarone wash out if HR remains high Since pt able to take PO, will change IV metoprolol to PO Heparin drip on hold since pt was spitting blood Continue monitor in tele Hemoptysis Mostly due to irritation from the NG tube CT chest showed large hiatal hernia with intrathoracic stomach. Malpositioned nasogastric tube with tip within the distal esophagus. Mild interstitial pulmonary edema with trace bilateral pleural effusions NG tube was discontinued . Hgb stable Continue monitor (3) CKD (chronic kidney disease), stage III: Plan: Cr: 1.02 . Baseline: 1.3-1.4 Monitor renal functions, avoid nephrotoxic agents when possible (4) HTN (hypertension): Plan: Hold atenolol Continue metoprolol tartrate secondary to afib RVR Continue losartan with holding parameters Continue to hold lasix and felodipine BP stable (5) Dyslipidemia: Plan: Hold atorvastatin for now (6) TIA (transient ischemic attack): Plan: On Aggrenox at home Prior record review that pt had suspected TIA while was already on Plavix and aspirin and was changed to Aggrenox Hold Aggrenox while on IV Heparin Aspirin on hold due to hemoptysis (7) Carotid artery aneurysm: Plan: Followed with neurology outpatient (8) Colon cancer: Plan: S/P sigmoid resection in 2001 (9) GERD (gastroesophageal reflux disease): Plan: History hiatal hernia Continue PPI (10) Anxiety: Plan: Continue lorazepam prn DVT Prophylax IV heparin drip on hold due to hemoptysis SCD added Admission and Anticipated Discharge Date Admission Date: May 09, 2022 Subjective Pt was seen and examined for follow up of Afib and SBO Sitting in chair with no acute distress Pt said that she had 3 BM early this morning She said that she is passing gas She was spiting out blood for possible irritation from the NG tube Denies any chest pain, palpitation, dizziness and SOB Review of Systems Review of Systems: All systems reviewed & are unremarkable except as noted in Subjective Physical Exam Physical Exam: General- No acute distress Head- atraumatic Eyes- PERRL, EOMI, ENT- oropharynx clear, +NG tube in place Neck- supple, no JVD Lungs- clear to auscultation Heart- irregular rhythm; no murmur Abdomen- normal bowel sounds, soft, nontender Extremities- no calf tenderness Neuro- alert, oriented x 3; PERRL, EOMI; no facial palsy; no dysarthria Skin- warm & dry Results & Data Results & Data ([facility]) Vital Signs (Past 12 Hours) Vital Signs Temp Pulse Pulse Resp BP Pulse Ox O2 Del Method 05/11/22 20:29 148 H 05/11/22 19:15 36.8 C 123 H 22 144/84 H 96 Room Air 05/11/22 16:16 132 H 05/11/22 15:22 36.7 C 125 H 18 137/86 96 Room Air 05/11/22 11:57 36.5 C 127 H 20 147/97 H 96 Room Air 05/11/22 11:54 127 H
[2022-05-11] MEDS ORDERED: dilTIAZem HCl 5 MG/ML 5 ML VIAL IV STA (23:10)
[2022-05-11 23:39] LABS: Hematocrit (blood only) 37.3 % (34.1-44.9); Hemoglobin 12.5 g/dl (12.0-16.0)
[2022-05-12] MEDS: PANTOprazole 40 MG in DEXTROSE 5% 100 ML IV SCH ×3 (04:29→14:02)
[2022-05-12] MEDS ORDERED: ATENOLOL 50 MG TABLET PO STA (07:20)
[2022-05-12 07:47] LABS: Hematocrit (blood only) 37.5 % (34.1-44.9); Hemoglobin 12.4 g/dl (12.0-16.0); Mean Corpuscular Hemoglobin 31.1 pg (25.0-34.0); Mean Corpuscular Hgb Conc 33.1 g/dL (32.0-36.0); Mean Platelet Volume 9.9 fL (9.4-12.3); Platelet Count 203 K/uL (130-400); RDW Coefficient of Variation 13.2 % (11.5-14.5); RDW Standard Deviation 45.3 fL (36.4-46.3); Red Blood Count 3.99 M/uL (3.93-5.22); White Blood Count 6.02 K/ul (4.8-10.8)
[2022-05-12 08:10] LABS: Calcium 9.1 mg/dl (8.5-10.1); Creatinine Clr Calc Pharmacy 34.2 ml/min; Est GFR (African American) 53.1 ml/min; Est GFR (Non-African American) 45.8 ml/min; Magnesium 1.9 mg/dl (1.7-2.4); Phosphorus 2.7 mg/dl (2.5-4.9); Potassium 3.6 mmol/L (3.5-5.1)
[2022-05-12] MEDS ORDERED: METOPROLOL TARTRATE 25 MG TAB PO SCH (09:00)
[2022-05-12] MEDS: LOSARTAN POTASSIUM 50 MG TAB PO SCH (09:18)
[2022-05-12] MEDS: LORazepam 1 MG TAB PO PRN ×2 (09:19→21:24)
--- NOTE | 2022-05-12 10:21 | Cardiology Progress Note ---
Date of Service May 12, 2022 Assessment & Plan (1) Colon cancer: (2) GERD (gastroesophageal reflux disease): (3) CKD (chronic kidney disease), stage III: (4) SBO (small bowel obstruction): (5) Hiatal hernia: (6) Atrial fibrillation with rapid ventricular response: Plan The patient had multiple drug changes overnight without clear documentation. IV metoprolol was discontinued and later had a bolus of diltiazem and then this morning was given 100 mg of atenolol orally. She remains in atrial fibrillation with RVR. Will need to reassess as she was given a pretty high dose of atenolol, which has a long half-life, before making further recommendations. Admission and Anticipated Discharge Date Admission Date: May 09, 2022 Subjective The patient is alert and feeling improved today. Her NG tube was removed. Review of Systems Review of Systems: Review of Systems: See HPI for pertinent positives. All other 10 point review of systems are negative. Physical Exam Physical Exam: General: no acute distress and stated age Head: normocephalic, no masses, lesions, tenderness or abnormalities Eyes: conjunctiva are pink and non-injected, sclera clear Neck: supple, no adenopathy, no bruits, normal jugular venous pulse, no hepatojugular reflux Chest: normal shape and normal respiratory effort Lungs: clear to auscultation and percussion Cardiac Exam: - irregular rate & rhythm, no murmurs gallops or rubs - normal S1, normal S2 Pulses: 2(+) throughout Abdomen: abdomen soft, non-tender, no abnormal masses and no hepatosplenomegaly Musculoskeletal: no gait disturbance, no joint inflammation, no deforming arthritis Extremities: no edema and no cyanosis Neuro: grossly normal exam Results & Data ([facility]) Vital Signs (Past 12 Hours) Vital Signs Temp Pulse Pulse Resp BP Pulse Ox O2 Del Method 05/12/22 07:00 36.5 C 120 H 18 131/69 97 05/11/22 22:31 131 H 05/12/22 03:14 36.7 C 124 H 12 128/82 97 Room Air 05/12/22 00:00 140 H 05/11/22 23:05 36.7 C 124 H 18 144/92 H 96 Room Air Laboratory Results Laboratory Results - last 24 hr 05/11/22 05/11/22 05/11/22 11:24 11:24 18:00 WBC RBC Hgb 13.7 13.0 Hct 40.6 38.7 MCV MCH MCHC RDW Std Deviation RDW Coeff of Shyanne Plt Count MPV APTT 28.0 PTT Ratio 1.0 Sodium Potassium Chloride Carbon Dioxide Anion Gap BUN Creatinine Est Cr Clr Drug Dosing Est GFR ( Amer) Est GFR (Non-Af Amer) BUN/Creatinine Ratio Glucose Calcium Phosphorus Magnesium 05/11/22 05/12/22 05/12/22 23:19 06:54 06:54 WBC 6.02 RBC 3.99 Hgb 12.5 12.4 Hct 37.3 37.5 MCV 94.0 MCH 31.1 MCHC 33.1 RDW Std Deviation 45.3 RDW Coeff of Shyanne 13.2 Plt Count 203 MPV 9.9 APTT PTT Ratio Sodium 135 L Potassium 3.6 Chloride 104 Carbon Dioxide 24 Anion Gap 7 BUN 14 Creatinine 1.08 Est Cr Clr Drug Dosing 34.2 Est GFR ( Amer) 53.1 Est GFR (Non-Af Amer) 45.8 BUN/Creatinine Ratio 13.0 Glucose 100 H Calcium 9.1 Phosphorus 2.7 Magnesium 1.9 Medications Administered Current Inpatient Medications Aspirin (Aspirin 81 Mg Ectab) 81 mg PO DAILY [facility] Stop: 06/09/22 08:59 Last Admin: 05/10/22 08:37 Dose: 81 mg Diltiazem HCl 125 mg/ Dextrose 125 mls @ 5 mls/hr IV .Q24H [facility]; Protocol Stop: 06/08/22 16:29 Last Titration: 05/10/22 09:54 Dose: Infused Promethazine HCl 6.25 mg/ (Sodium Chloride) 50.25 mls @ 201 mls/hr IV Q6H PRN PRN Reason: Nausea And Vomiting Stop: 06/09/22 05:40 Last Infusion: 05/10/22 06:39 Dose: Infused Pantoprazole Sodium 40 mg/ (Dextrose) 100 mls @ 20 mls/hr IV Q5H [facility] Stop: 06/10/22 05:44 Last Admin: 05/12/22 09:19 Dose: 8 mg/hr, 20 mls/hr Lorazepam (Lorazepam 1 Mg Tab) 1 mg PO TID PRN PRN Reason: Anxiety Stop: 06/08/22 20:29 Last Admin: 05/12/22 09:19 Dose: 1 mg Losartan Potassium (Losartan Potassium 50 Mg Tab) 100 mg PO DAILY [facility] Stop: 06/09/22 08:59 Last Admin: 05/12/22 09:18 Dose: 100 mg
--- NOTE | 2022-05-12 10:47 | Surgery Progress Note ---
Date of Service May 12, 2022 Assessment & Plan (1) SBO (small bowel obstruction): Plan: Shelley is doing well. No abdominal pain. She denies nausea or vomiting. She is tolerating clear liquid diet. Will advance diet to full liquids today. If she continues to do well can continue to advance diet. General Surgery will sign off at this time, please call with any questions or concerns. Admission and Anticipated Discharge Date Admission Date: May 09, 2022 Supervising Physician Co-Signing Physician Notes I personally saw and evaluated the patient with Radha Desai PA-C and agree with the assessment and plan. 86-year-old female with small bowel obstruction Patient is continued to improve and is tolerated clear liquids She continues to have bowel function and no abdominal pain We will initiate full liquid diet and then can advance as tolerated No plans for any surgery, surgery will sign off at this time please call with any questions or concerns Subjective Shelley is resting in bed, denies abdominal pain, denies nausea. She is tolerating clear liquid diet. She is passing gas and moving her bowels. Review of Systems Gastrointestinal: no abdominal pain, no nausea and no vomiting Physical Exam Gastrointestinal (Abdomen): Inspection/Auscultation: abdomen not distended Percussion/Palpation: abdomen soft; abdomen nontender, no guarding and abdomen not rigid Results & Data ([facility]) Vital Signs (Past 12 Hours) Vital Signs Temp Pulse Resp BP Pulse Ox O2 Del Method 05/12/22 07:00 36.5 C 120 H 18 131/69 97 05/12/22 03:14 36.7 C 124 H 12 128/82 97 Room Air 05/12/22 00:00 140 H 05/11/22 23:05 36.7 C 124 H 18 144/92 H 96 Room Air PG Care Time/CCT Total # of Minutes Spent Total Time Spent with Patient: Total time spent is greater than 50% in coordination of care (as documented) at patient's floor/unit and/or counseling patient: Coding Level of Care Code 91535 Subseq Hosp Care Lvl 1 Diagnoses SBO (small bowel obstruction) K56.609
--- NOTE | 2022-05-12 12:56 | Hospitalist Progress Note ---
Date of Service May 12, 2022 Assessment & Plan (1) SBO (small bowel obstruction): Plan: Has large hiatal hernia. Reported history SBO many years ago treated conservatively. NGT placed and has now been removed am of 05/11 She is doing well on liquids. Advancing to solid foods (no chicken). Gen surg has signed off. (2) Atrial fibrillation with rapid ventricular response: Plan: In ER found to be in atrial fibrillation RVR with rate up to 130s No known prior history Afib Patient denies shortness of breath, chest pain, shortness of breath, dizziness TSH, magnesium, potassium WNL. Initial troponin negative In ER Cardizem bolus and drip started, continue Cardizem drip, Start IV heparin, stopped after some hematemesis seen with NG tube. Echo on 05/10 reveals preserved ejection fraction with grade 2 diastolic dysfunction and mild valvular disease. She was also given IV metoprolol for rate controlled with her home atenolol 100 mg daily being held while NG tube was in place. Her rate was in the 120s to 130s overnight consistently and she received IV diltiazem, IV beta-antonio with no improvement. Heart rate was 125 this morning, therefore, restarted her oral atenolol 100 mg daily to see if this would help improve rate. (3) CKD (chronic kidney disease), stage III: Plan: chronic, stable, at baseline. Monitor renal functions, avoid nephrotoxic agents when possible (4) HTN (hypertension): Plan: chronic, stable. Cont home regimen. (5) TIA (transient ischemic attack): Plan: On Aggrenox at home Prior record review that pt had suspected TIA while was already on Plavix and aspirin and was changed to Aggrenox Hold Aggrenox while in new onset afib and anticoagulation may be reconsidered. Cont ASA 81mg daily. (6) Carotid artery aneurysm: Plan: chronic, stable. Followed with neurology outpatient (7) Colon cancer: Plan: chronic, stable. S/P sigmoid resection in 2001 (8) GERD (gastroesophageal reflux disease): Plan: History hiatal hernia, stable. Continue PPI (9) Anxiety: Plan: Continue lorazepam prn (10) DVT prophylaxis: Plan: Lovenox Full Code Dispo-Home with home health in 1-2 days once heart rate is under better control. Perla Simons DO [facility] Hospitalist Admission and Anticipated Discharge Date Admission Date: May 09, 2022 Subjective 86-year-old female presented with a small bowel obstruction. She had an NG tube placed which was removed yesterday morning. Since then she has been tolerating clear liquid diet without issue. She is allergic to chicken and is not doing well with the chicken broth. She is requesting solid foods. Diet was advanced. Otherwise there is no abdominal pain. She has not had a bowel movement. Additionally, hematemesis which was present with NG tube in place has resolved. PPI drip is being stopped. Review of Systems Review of Systems: All systems reviewed negative except as indicated above. Physical Exam Physical Exam: CONSTITUTIONAL: WNWD, vitals as above, generally well- appearing, NAD, sitting in bedside chair EYES: normal conjunctivae, no scleral icterus, ENT: external ear and nose normal, MMM NECK: trachea midline RESPIRATORY: clear to auscultation bilaterally, no crackles, rales or wheezes, normal respiratory effort CARDIOVASCULAR: regular rate and rhythm, S1 and 2 heard without murmurs, gallops or rubs, no JVD, no peripheral edema CHEST: inspection of chest was normal GASTROINTESTINAL: soft, nontender, ND, no guarding MUSCULOSKELETAL: strength 5/5 throughout, head is normocephalic and atraumatic, SKIN: warm and dry NEUROLOGIC: CN 2-12 grossly intact, no sensory deficit, normal cognition, normal speech, no tremor PSYCHIATRIC: alert cooperative and oriented to person, place and time. Results & Data Results & Data ([facility]) Vital Signs (Past 12 Hours) Vital Signs Temp Pulse Resp BP Pulse Ox O2 Del Method 05/12/22 11:00 36.6 C 118 H 20 124/76 05/12/22 07:00 36.5 C 120 H 18 131/69 97 05/12/22 03:14 36.7 C 124 H 12 128/82 97 Room Air Laboratory Results Short CBC 05/11/22 05/11/22 05/12/22 Range/Units 18:00 23:19 06:54 WBC 6.02 (4.8-10.8) K/ul Hgb 13.0 12.5 12.4 (12.0-16.0) g/dl Hct 38.7 37.3 37.5 (34.1-44.9) % Plt Count 203 (130-400) K/uL BMP 05/12/22 06:54 Sodium 135 L Potassium 3.6 Chloride 104 Carbon Dioxide 24 BUN 14 Creatinine 1.08 Glucose 100 H Calcium 9.1 Medications Administered Current Inpatient Medications Aspirin (Aspirin 81 Mg Ectab) 81 mg PO DAILY [facility] Stop: 06/09/22 08:59 Last Admin: 05/10/22 08:37 Dose: 81 mg Promethazine HCl 6.25 mg/ (Sodium Chloride) 50.25 mls @ 201 mls/hr IV Q6H PRN PRN Reason: Nausea And Vomiting Stop: 06/09/22 05:40 Last Infusion: 05/10/22 06:39 Dose: Infused Lorazepam (Lorazepam 1 Mg Tab) 1 mg PO TID PRN PRN Reason: Anxiety Stop: 06/08/22 20:29 Last Admin: 05/12/22 09:19 Dose: 1 mg Losartan Potassium (Losartan Potassium 50 Mg Tab) 100 mg PO DAILY [facility] Stop: 06/09/22 08:59 Last Admin: 05/12/22 09:18 Dose: 100 mg
[2022-05-12] MEDS: ENOXAPARIN INJ 40 MG/0.4 ML SYR SQ SCH (16:59)
[2022-05-13 07:56] LABS: Hematocrit (blood only) 36.7 % (34.1-44.9); Hemoglobin 12.3 g/dl (12.0-16.0); Mean Corpuscular Hemoglobin 30.8 pg (25.0-34.0); Mean Corpuscular Hgb Conc 33.5 g/dL (32.0-36.0); Mean Corpuscular Volume 91.8 fL (80.0-100.0); Mean Platelet Volume 9.9 fL (9.4-12.3); Platelet Count 203 K/uL (130-400); RDW Standard Deviation 43.6 fL (36.4-46.3); White Blood Count 5.64 K/ul (4.8-10.8)
[2022-05-13 08:30] LABS: BUN Creatinine Ratio 10.9 (10-20); Calcium 8.9 mg/dl (8.5-10.1); Creatinine Clr Calc Pharmacy 30.8 ml/min; Est GFR (African American) 47.2 ml/min; Est GFR (Non-African American) 40.7 ml/min; Potassium 3.8 mmol/L (3.5-5.1)
[2022-05-13] MEDS: LOSARTAN POTASSIUM 50 MG TAB PO SCH (08:36)
--- NOTE | 2022-05-13 10:41 | Cardiology Progress Note ---
Date of Service May 13, 2022 Assessment & Plan (1) Colon cancer: (2) GERD (gastroesophageal reflux disease): (3) CKD (chronic kidney disease), stage III: (4) SBO (small bowel obstruction): (5) Hiatal hernia: (6) Atrial fibrillation with rapid ventricular response: Plan The patient's heart rate stayed well through yesterday. Unfortunately, she was not provided a daily dose of atenolol. I wrote for that this morning. Hopefully, that will improve her heart rates today and she will be able to be discharged home with outpatient follow-up. Admission and Anticipated Discharge Date Admission Date: May 09, 2022 Subjective The patient is sitting in a chair feels well. She wants to go home. Review of Systems Review of Systems: Review of Systems: See HPI for pertinent positives. All other 10 point review of systems are negative. Physical Exam Physical Exam: General: no acute distress and stated age Head: normocephalic, no masses, lesions, tenderness or abnormalities Eyes: conjunctiva are pink and non-injected, sclera clear Neck: supple, no adenopathy, no bruits, normal jugular venous pulse, no hepatojugular reflux Chest: normal shape and normal respiratory effort Lungs: clear to auscultation and percussion Cardiac Exam: - irregular rate & rhythm, no murmurs gallops or rubs - normal S1, normal S2 Pulses: 2(+) throughout Abdomen: abdomen soft, non-tender, no abnormal masses and no hepatosplenomegaly Musculoskeletal: no gait disturbance, no joint inflammation, no deforming arthritis Extremities: no edema and no cyanosis Neuro: grossly normal exam Results & Data ([facility]) Vital Signs (Past 12 Hours) Vital Signs Temp Pulse Resp BP Pulse Ox O2 Del Method 05/13/22 06:53 36.6 C 136 H 20 138/85 94 Room Air 05/13/22 03:00 36.7 C 98 H 18 112/65 95 Room Air 05/12/22 23:33 36.7 C 120 H 16 127/75 97 Room Air Laboratory Results Laboratory Results - last 24 hr 05/13/22 05/13/22 07:23 07:23 WBC 5.64 RBC 4.00 Hgb 12.3 Hct 36.7 MCV 91.8 MCH 30.8 MCHC 33.5 RDW Std Deviation 43.6 RDW Coeff of Shyanne 13.0 Plt Count 203 MPV 9.9 Sodium 135 L Potassium 3.8 Chloride 104 Carbon Dioxide 25 Anion Gap 6 BUN 13 Creatinine 1.19 Est Cr Clr Drug Dosing 30.8 Est GFR ( Amer) 47.2 Est GFR (Non-Af Amer) 40.7 BUN/Creatinine Ratio 10.9 Glucose 83 Calcium 8.9 Medications Administered Current Inpatient Medications Aspirin (Aspirin 81 Mg Ectab) 81 mg PO DAILY [facility] Stop: 06/09/22 08:59 Last Admin: 05/10/22 08:37 Dose: 81 mg Atenolol (Atenolol 50 Mg Tablet) 100 mg PO QAM [facility] Stop: 06/12/22 10:44 Enoxaparin Sodium (Enoxaparin Inj 40 Mg/0.4 Ml Syr) 40 mg SQ Q24H [facility] Stop: 06/11/22 15:29 Last Admin: 05/12/22 16:59 Dose: 40 mg Promethazine HCl 6.25 mg/ (Sodium Chloride) 50.25 mls @ 201 mls/hr IV Q6H PRN PRN Reason: Nausea And Vomiting Stop: 06/09/22 05:40 Last Infusion: 05/10/22 06:39 Dose: Infused Lorazepam (Lorazepam 1 Mg Tab) 1 mg PO TID PRN PRN Reason: Anxiety Stop: 06/08/22 20:29 Last Admin: 05/12/22 21:24 Dose: 1 mg Losartan Potassium (Losartan Potassium 50 Mg Tab) 100 mg PO DAILY [facility] Stop: 06/09/22 08:59 Last Admin: 05/13/22 08:36 Dose: 100 mg
[2022-05-13] MEDS: ATENOLOL 50 MG TABLET PO SCH (11:16)
[2022-05-13] MEDS: ENOXAPARIN INJ 40 MG/0.4 ML SYR SQ SCH (16:22)
--- NOTE | 2022-05-13 21:04 | Hospitalist Progress Note ---
Date of Service May 13, 2022 Assessment & Plan (1) SBO (small bowel obstruction): Plan: Has large hiatal hernia. Reported history SBO many years ago treated conservatively. NGT placed and has now been removed am of 05/11 Diet advanced to solid and tolerated well Gen surg has signed off. (2) Atrial fibrillation with rapid ventricular response: Plan: In ER found to be in atrial fibrillation RVR with rate up to 130s No known prior history Afib Patient denies shortness of breath, chest pain, shortness of breath, dizziness TSH, magnesium, potassium WNL. Initial troponin negative In ER Cardizem bolus and drip started, continue Cardizem drip, Start IV heparin, stopped after some hematemesis seen with NG tube. Echo on 05/10 reveals preserved ejection fraction with grade 2 diastolic dysfunction and mild valvular disease. Was placed on home dose atenolol 100 mg daily since that improved heart rate Case discussed with cardiology recommend to continue atenolol for now If no improvement in heart rate will consider to add digoxin Will start on a low-dose Eliquis in the morning continue monitor closely in telemetry (3) CKD (chronic kidney disease), stage III: Plan: chronic, stable, at baseline. Monitor renal functions, avoid nephrotoxic agents when possible (4) HTN (hypertension): Plan: chronic, stable. Cont home regimen. (5) TIA (transient ischemic attack): Plan: On Aggrenox at home Prior record review that pt had suspected TIA while was already on Plavix and aspirin and was changed to Aggrenox Hold Aggrenox while in new onset afib and anticoagulation may be reconsidered. Cont ASA 81mg daily. (6) Carotid artery aneurysm: Plan: chronic, stable. Followed with neurology outpatient (7) Colon cancer: Plan: chronic, stable. S/P sigmoid resection in 2001 (8) GERD (gastroesophageal reflux disease): Plan: History hiatal hernia, stable. Continue PPI (9) Anxiety: Plan: Continue lorazepam prn (10) DVT prophylaxis: Plan: Lovenox Full Code Dispo-Home with home health in 1-2 days once heart rate is under better control. Admission and Anticipated Discharge Date Admission Date: May 09, 2022 Subjective Pt was seen and examined for follow up of Afib and SBO Sitting in chair with no acute distress watching TV Pt said that she feels good She said that she is not coughing or spitting blood since NG tube removed Denies any chest pain, palpitation, dizziness and SOB Review of Systems Review of Systems: All systems reviewed & are unremarkable except as noted in Subjective Physical Exam Physical Exam: General- No acute distress Head- atraumatic Eyes- PERRL, EOMI, ENT- oropharynx clear Neck- supple, no JVD Lungs- clear to auscultation Heart- irregular rhythm; no murmur Abdomen- normal bowel sounds, soft, nontender Extremities- no calf tenderness Neuro- alert, oriented x 3; PERRL, EOMI; no facial palsy; no dysarthria Skin- warm & dry Results & Data Results & Data ([facility]) Vital Signs (Past 12 Hours) Vital Signs Temp Pulse Resp BP Pulse Ox 05/13/22 19:00 36.6 C 112 H 18 131/86 95 05/13/22 16:00 36.5 C 109 H 18 119/62 99 05/13/22 12:00 36.8 C 115 H 18 130/71 98
[2022-05-14 09:07] LABS: BUN Creatinine Ratio 10.8 (10-20); Calcium 9.2 mg/dl (8.5-10.1); Creatinine Clr Calc Pharmacy 30.5 ml/min; Est GFR (African American) 46.7 ml/min; Est GFR (Non-African American) 40.3 ml/min; Magnesium 1.6 mg/dl (1.7-2.4); Potassium 3.9 mmol/L (3.5-5.1)
--- NOTE | 2022-05-14 09:39 | Cardiology Progress Note ---
Date of Service May 14, 2022 Assessment & Plan (1) Colon cancer: (2) GERD (gastroesophageal reflux disease): (3) CKD (chronic kidney disease), stage III: (4) SBO (small bowel obstruction): (5) Hiatal hernia: (6) Atrial fibrillation with rapid ventricular response: Plan Presentation to the [facility] ER on 05/09/2022 with epigastric discomfort, small bowel obstruction. Asymptomatic atrial fibrillation with a rapid ventricular response noted on presentation, of unknown duration. [id number] Score is 7 points for an 86 year old female with hypertension, history of TIA, and extensive aortoiliac calcified plaque. Patient has received a hodgepodge of rate lowering medications this admission, remaining in atrial fibrillation with elevated ventricular rates. No overt evidence of acute decompensated diastolic heart failure. Estimated Creatinine clearance for drug dosing is ~30 mL/min. Recommendations: Discontinue Atenolol 100 mg/day Start metoprolol succinate 75 mg twice a day. Agree with reduced dose Eliquis anticoagulation, 2.5 mg twice a day Recommend resumption of chronic PPI therapy (Protonix 40 mg/day) given the large hiatal hernia and the need for anticoagulation Continue telemetry Admission and Anticipated Discharge Date Admission Date: May 09, 2022 Supervising Physician Co-Signing Physician Notes I have previously seen this patient. I discussed the case with Ms. Wagner. Reviewed the medical record. The patient was given 75 mg of metoprolol succinate this morning and it seems like her heart rates are better controlled. Would continue this medication. Subjective Patient seen and examined. Chart, medications, and telemetry reviewed. Feeling well. No complaints. Denies palpitations, chest pain, shortness of breath, orthopnea, PND, edema, dizziness, near syncope, melena, hematochezia, or hematuria. Telemetry: Atrial fibrillation ranging from the 90's to 150's. No significant bradycardia. May 10, 2022 TTE Interpretation Summary ([facility], Dr. Mccarthy): Normal LV chamber size and wall thickness. Normal LV systolic function, EF 55-60%. No segmental LV WMA's. Mild AI. Mild MR and TR. Grade II diastolic dysfunction. Review of Systems Review of Systems: Complete Review of Systems is as stated above, negative, or noncontributory. Physical Exam Physical Exam: General: A&Ox3. NAD. HENT: Normocephalic. Atraumatic. Eyes: PER. Conjunctiva pink, sclera clear. Neck: No carotid bruits. No JVD. Heart: Irregularly irregular at 100 bpm. No murmur. Lungs: Clear to auscultation. Abdomen: +BS. Soft. Nontender. No masses or organomegaly. Extremities: Mild lymphedematous changes. No overt edema. No clubbing. No cyanosis. Limited neurological examination is without focal deficits. Pulses: radial=2/4, posterior tibial=2/4. Results & Data ([facility]) Vital Signs (Past 12 Hours) Vital Signs Temp Pulse Pulse Resp BP Pulse Ox O2 Del Method 05/14/22 07:37 36.6 C 105 H 18 132/73 96 Room Air 05/14/22 07:23 95 H 05/14/22 07:23 Room Air 05/14/22 03:00 36.6 C 83 18 115/77 97 Room Air 05/13/22 23:25 36.8 C 105 H 18 137/83 97 Room Air Laboratory Results Comprehensive Metabolic Panel 05/14/22 Range/Units 08:27 Sodium 136 (136-145) mmol/L Potassium 3.9 (3.5-5.1) mmol/L Chloride 102 (98-107) mmol/L Carbon Dioxide 27 (21-32) mmol/L BUN 13 (6-23) mg/dl Creatinine 1.20 (0.6-1.2) mg/dl Glucose 92 (70-99(Fasting)) mg/dl Calcium 9.2 (8.5-10.1) mg/dl Intake and Output 05/13/22 05/14/22 05/14/22 22:59 06:59 14:59 Intake Total 300 / 1075 Balance 300 / 575 Intake: Oral 300 / 1075 Other: # Unmeasured Voids 2
[2022-05-14] MEDS: LOSARTAN POTASSIUM 50 MG TAB PO SCH (10:29)
[2022-05-14] MEDS: METOPROLOL SUCC 25MG EXT REL TAB PO SCH ×2 (10:29→20:36)
[2022-05-14] MEDS: APIXABAN 2.5 MG TAB PO SCH ×2 (10:29→20:36)
[2022-05-14] MEDS: LORazepam 1 MG TAB PO PRN ×2 (10:34→20:36)
[2022-05-14] MEDS ORDERED: MAGNESIUM SULFATE / D5W 1 GM/100 ML BAG IV ONE (11:05)
[2022-05-14] MEDS: ATENOLOL 50 MG TABLET PO SCH (11:18)
--- NOTE | 2022-05-14 20:38 | Hospitalist Progress Note ---
Date of Service May 14, 2022 Assessment & Plan (1) SBO (small bowel obstruction): Plan: Has large hiatal hernia. Reported history SBO many years ago treated conservatively. NGT placed and has now been removed am of 05/11 Diet advanced to solid and tolerated well Gen surg has signed off. (2) Atrial fibrillation with rapid ventricular response: Plan: In ER found to be in atrial fibrillation RVR with rate up to 130s No known prior history Afib Patient denies shortness of breath, chest pain, shortness of breath, dizziness TSH, magnesium, potassium WNL. Initial troponin negative In ER Cardizem bolus and drip started, continue Cardizem drip, Start IV heparin, stopped after some hematemesis seen with NG tube. Echo on 05/10 reveals preserved ejection fraction with grade 2 diastolic dysfunction and mild valvular disease. Was placed on home dose atenolol 100 mg daily since that improved heart rate Atenolol discontinued and started on Metoprolol 75mg BID If no improvement in heart rate will consider to add digoxin Started on Eliquis 2.5 mg BID continue monitor closely in telemetry (3) CKD (chronic kidney disease), stage III: Plan: chronic, stable, at baseline. Monitor renal functions, avoid nephrotoxic agents when possible (4) HTN (hypertension): Plan: chronic, stable. Cont home regimen. (5) TIA (transient ischemic attack): Plan: On Aggrenox at home Prior record review that pt had suspected TIA while was already on Plavix and aspirin and was changed to Aggrenox Hold Aggrenox while in new onset afib and anticoagulation may be reconsidered. Cont ASA 81mg daily. (6) Carotid artery aneurysm: Plan: chronic, stable. Followed with neurology outpatient (7) Colon cancer: Plan: chronic, stable. S/P sigmoid resection in 2001 (8) GERD (gastroesophageal reflux disease): Plan: History hiatal hernia, stable. Continue PPI (9) Anxiety: Plan: Continue lorazepam prn (10) DVT prophylaxis: Plan: Lovenox Full Code Dispo-Home with home health in 1-2 days once heart rate is under better control. Admission and Anticipated Discharge Date Admission Date: May 09, 2022 Subjective Pt was seen and examined for follow up of Afib Sitting in chair with no acute distress Pt said that she feels fine Denies any chest pain, palpitation, dizziness and SOB Review of Systems Review of Systems: All systems reviewed & are unremarkable except as noted in Subjective Physical Exam Physical Exam: General- No acute distress Head- atraumatic Eyes- PERRL, EOMI, ENT- oropharynx clear Neck- supple, no JVD Lungs- clear to auscultation Heart- irregular rhythm; no murmur Abdomen- normal bowel sounds, soft, nontender Extremities- no calf tenderness Neuro- alert, oriented x 3; PERRL, EOMI; no facial palsy; no dysarthria Skin- warm & dry Results & Data Results & Data ([facility]) Vital Signs (Past 12 Hours) Vital Signs Temp Pulse Resp BP Pulse Ox O2 Del Method 05/14/22 20:01 36.6 C 120 H 20 144/98 H 93 Room Air 05/14/22 16:54 36.5 C 131 H 18 137/95 93 Room Air 05/14/22 12:36 36.7 C 106 H 18 138/88 96 Room Air
[2022-05-15 07:20] LABS: Hematocrit (blood only) 36.6 % (34.1-44.9); Hemoglobin 12.4 g/dl (12.0-16.0); Mean Corpuscular Hemoglobin 31.5 pg (25.0-34.0); Mean Corpuscular Hgb Conc 33.9 g/dL (32.0-36.0); Mean Corpuscular Volume 92.9 fL (80.0-100.0); Mean Platelet Volume 9.6 fL (9.4-12.3); Platelet Count 207 K/uL (130-400); RDW Coefficient of Variation 13.1 % (11.5-14.5); RDW Standard Deviation 44.5 fL (36.4-46.3); Red Blood Count 3.94 M/uL (3.93-5.22); White Blood Count 8.56 K/ul (4.8-10.8)
[2022-05-15 07:48] LABS: BUN Creatinine Ratio 12.6 (10-20); Calcium 9.1 mg/dl (8.5-10.1); Creatinine Clr Calc Pharmacy 35.9 ml/min; Est GFR (African American) 56.2 ml/min; Est GFR (Non-African American) 48.5 ml/min; Magnesium 1.7 mg/dl (1.7-2.4); Potassium 3.7 mmol/L (3.5-5.1)
[2022-05-15] MEDS: METOPROLOL SUCC 25MG EXT REL TAB PO SCH (08:37)
[2022-05-15] MEDS: LOSARTAN POTASSIUM 50 MG TAB PO SCH (08:37)
[2022-05-15] MEDS: APIXABAN 2.5 MG TAB PO SCH ×2 (08:37→20:02)
[2022-05-15] MEDS: LORazepam 1 MG TAB PO PRN ×2 (08:42→20:06)
[2022-05-15] MEDS ORDERED: METOPROLOL SUCC 25MG EXT REL TAB PO STA (09:01)
--- NOTE | 2022-05-15 09:05 | Cardiology Progress Note ---
Date of Service May 15, 2022 Assessment & Plan (1) Colon cancer: (2) GERD (gastroesophageal reflux disease): (3) CKD (chronic kidney disease), stage III: (4) SBO (small bowel obstruction): (5) Hiatal hernia: (6) Atrial fibrillation with rapid ventricular response: Plan Presentation to the [facility] ER on 05/09/2022 with epigastric discomfort, small bowel obstruction. Asymptomatic atrial fibrillation with a rapid ventricular response noted on presentation, of unknown duration. [id number] Score is 7 points for an 86 year old female with hypertension, history of TIA, and extensive aortoiliac calcified plaque. Patient has received a hodgepodge of rate lowering medications this admission, remaining in atrial fibrillation with elevated ventricular rates. No overt evidence of acute decompensated diastolic heart failure. Estimated Creatinine clearance for drug dosing is ~30 mL/min. Recommendations: Increase metoprolol succinate to 100 mg twice a day Add oral digoxin, 125 mcg/day for now. Agree with reduced dose Eliquis anticoagulation, 2.5 mg twice a day Recommend resumption of chronic PPI therapy (Protonix 40 mg/day) given the large hiatal hernia and the need for anticoagulation Continue telemetry Admission and Anticipated Discharge Date Admission Date: May 09, 2022 Supervising Physician Co-Signing Physician Notes I have seen and examined the patient. I reviewed the medical record discussed the case with Mr. Wagner. I agree with the plan as outlined above. Unfortunately, this patient continues to have high heart rates. Hopefully the addition of digoxin will improve her tachycardia. Subjective Patient seen and examined. Chart, medications, and telemetry reviewed. Feeling well. No complaints. Denies palpitations, chest pain, shortness of breath, orthopnea, PND, edema, dizziness, near syncope, melena, hematochezia, or hematuria. Telemetry: Atrial fibrillation with a rapid ventricular response. No bradycardia. No pauses. No periods of sinus. May 10, 2022 TTE Interpretation Summary ([facility], Dr. Mccarthy): Normal LV chamber size and wall thickness. Normal LV systolic function, EF 55-60%. No segmental LV WMA's. Mild AI. Mild MR and TR. Grade II diastolic dysfunction. Review of Systems 2 Review of Systems: Complete Review of Systems is as stated above, negative, or noncontributory. Physical Exam Physical Exam: General: A&Ox3. NAD. HENT: Normocephalic. Atraumatic. Eyes: PER. Conjunctiva pink, sclera clear. Neck: No carotid bruits. No JVD. Heart: Irregularly irregular at 120 bpm. No murmur. Lungs: Clear to auscultation. Abdomen: +BS. Soft. Nontender. No masses or organomegaly. Extremities: Mild lymphedematous changes. No overt edema. No clubbing. No cyanosis. Limited neurological examination is without focal deficits. Pulses: radial=2/4, posterior tibial=2/4. Results & Data ([facility]) Vital Signs (Past 12 Hours) Vital Signs Temp Pulse Resp BP Pulse Ox O2 Del Method 05/15/22 08:03 36.9 C 131 H 18 112/68 95 Room Air 05/15/22 03:28 36.7 C 128 H 22 149/92 H 94 Room Air 05/14/22 22:38 36.7 C 123 H 20 144/84 H 97 Room Air Laboratory Results CBC 05/15/22 Range/Units 07:10 WBC 8.56 (4.8-10.8) K/ul RBC 3.94 (3.93-5.22) M/uL Hgb 12.4 (12.0-16.0) g/dl Hct 36.6 (34.1-44.9) % Plt Count 207 (130-400) K/uL Comprehensive Metabolic Panel 05/14/22 05/15/22 Range/Units 08:27 07:10 Sodium 136 135 L (136-145) mmol/L Potassium 3.9 3.7 (3.5-5.1) mmol/L Chloride 102 102 (98-107) mmol/L Carbon Dioxide 27 27 (21-32) mmol/L BUN 13 13 (6-23) mg/dl Creatinine 1.20 1.03 (0.6-1.2) mg/dl Glucose 92 105 H (70-99(Fasting)) mg/dl Calcium 9.2 9.1 (8.5-10.1) mg/dl Intake and Output 05/14/22 05/15/22 05/15/22 22:59 06:59 14:59 Intake Total 100 / 200 Output Total 0 / 0 Balance 0 / 200 100 / 200 Intake: Oral 100 / 100 Output: Urine 0 / 0 Other: # Unmeasured Voids 3 1 Weight 78.8 kg Weight Measurement Method Built in [facility]
[2022-05-15] MEDS: PANTOprazole 40 MG TAB PO SCH (09:23)
[2022-05-15] MEDS: DIGOXIN 0.125 MG TAB PO SCH (15:05)
[2022-05-15] MEDS ORDERED: DIGOXIN 0.125 MG/2.5 ML UDP PO SCH (16:00)
[2022-05-15] MEDS ORDERED: ALUMINUM/MAGNESIUM/SIMETH (MAALOX MAX) 30 ML UDC PO STA (16:32)
[2022-05-15] MEDS: METOPROLOL SUCC 50MG EXT REL TAB PO SCH (20:02)
--- NOTE | 2022-05-15 21:49 | Hospitalist Progress Note ---
Date of Service May 15, 2022 Assessment & Plan (1) Atrial fibrillation with rapid ventricular response: Plan: In ER found to be in atrial fibrillation RVR with rate up to 130s No known prior history Afib Patient denies shortness of breath, chest pain, shortness of breath, dizziness TSH, magnesium, potassium WNL. Initial troponin negative In ER Cardizem bolus and drip started, continue Cardizem drip, Start IV heparin, stopped after some hematemesis seen with NG tube. Echo on 05/10 reveals preserved ejection fraction with grade 2 diastolic dysfunction and mild valvular disease. Was placed on home dose atenolol 100 mg daily since that improved heart rate Atenolol discontinued then starting on Metoprolol 75mg BID Rate non controlled Metoprolol increased to 100mg BID Continue Eliquis 2.5 mg BID Starting on digoxin Continue monitor closely (2) SBO (small bowel obstruction): Plan: Has large hiatal hernia. Reported history SBO many years ago treated conservatively. NGT placed and has now been removed am of 05/11 Diet advanced to solid and tolerated well Gen surg has signed off. (3) CKD (chronic kidney disease), stage III: Plan: chronic, stable, at baseline. Monitor renal functions, avoid nephrotoxic agents when possible (4) HTN (hypertension): Plan: chronic, stable. Cont home regimen. (5) TIA (transient ischemic attack): Plan: On Aggrenox at home Prior record review that pt had suspected TIA while was already on Plavix and aspirin and was changed to Aggrenox Hold Aggrenox while in new onset afib and anticoagulation may be reconsidered. Cont ASA 81mg daily. (6) Carotid artery aneurysm: Plan: chronic, stable. Followed with neurology outpatient (7) Colon cancer: Plan: chronic, stable. S/P sigmoid resection in 2001 (8) GERD (gastroesophageal reflux disease): Plan: History hiatal hernia, stable. Continue PPI (9) Anxiety: Plan: Continue lorazepam prn (10) DVT prophylaxis: Plan: On Eliquis 2.5 mg BID Full Code Dispo-Home with home health in 1-2 days once heart rate is under better control. Admission and Anticipated Discharge Date Admission Date: May 09, 2022 Subjective Pt was seen and examined for follow up of Afib with RVR Sitting in chair with no acute distress watching TV Telemonitor showed Afib with rvr Denies any chest pain, palpitation, dizziness and SOB Review of Systems Review of Systems: All systems reviewed & are unremarkable except as noted in Subjective Physical Exam Physical Exam: General- No acute distress Head- atraumatic Eyes- PERRL, EOMI, ENT- oropharynx clear Neck- supple, no JVD Lungs- clear to auscultation Heart- irregular rhythm; no murmur Abdomen- normal bowel sounds, soft, nontender Extremities- no calf tenderness Neuro- alert, oriented x 3; PERRL, EOMI; no facial palsy; no dysarthria Skin- warm & dry Results & Data Results & Data ([facility]) Vital Signs (Past 12 Hours) Vital Signs Temp Pulse Pulse Resp BP Pulse Ox O2 Del Method 05/15/22 19:35 36.6 C 133 H 20 152/98 H 94 Room Air 05/15/22 16:19 36.7 C 130 H 18 132/89 96 Room Air 05/15/22 15:27 115 H 05/15/22 15:05 137 H 05/15/22 11:34 36.6 C 130 H 18 136/97 96 Room Air 05/15/22 10:51 105 H
[2022-05-16 06:18] LABS: Hematocrit (blood only) 34.1 % (34.1-44.9); Hemoglobin 11.7 g/dl (12.0-16.0); Mean Corpuscular Hemoglobin 31.6 pg (25.0-34.0); Mean Corpuscular Hgb Conc 34.3 g/dL (32.0-36.0); Mean Corpuscular Volume 92.2 fL (80.0-100.0); Mean Platelet Volume 9.7 fL (9.4-12.3); Platelet Count 197 K/uL (130-400); RDW Coefficient of Variation 13.1 % (11.5-14.5); RDW Standard Deviation 44.2 fL (36.4-46.3); White Blood Count 8.55 K/ul (4.8-10.8)
[2022-05-16] MEDS: PANTOprazole 40 MG TAB PO SCH (09:21)
[2022-05-16] MEDS: LOSARTAN POTASSIUM 50 MG TAB PO SCH (09:21)
[2022-05-16] MEDS: APIXABAN 2.5 MG TAB PO SCH ×2 (09:22→21:25)
[2022-05-16] MEDS: LORazepam 1 MG TAB PO PRN ×2 (09:25→21:26)
[2022-05-16] MEDS: METOPROLOL SUCC 50MG EXT REL TAB PO SCH ×2 (09:28→21:26)
[2022-05-16] MEDS ORDERED: METOPROLOL SUCC 50MG EXT REL TAB PO STA (10:36)
--- NOTE | 2022-05-16 10:39 | Cardiology Progress Note ---
Date of Service May 16, 2022 Assessment & Plan (1) SBO (small bowel obstruction): (2) Atrial fibrillation with rapid ventricular response: (3) Colon cancer: (4) GERD (gastroesophageal reflux disease): (5) CKD (chronic kidney disease), stage III: (6) Hiatal hernia: Plan Presentation to the [facility] ER on 05/09/2022 with epigastric discomfort, small bowel obstruction. Asymptomatic atrial fibrillation with a rapid ventricular response noted on presentation, of unknown duration. [id number] Score is 7 points for an 86 year old female with hypertension, history of TIA, and extensive aortoiliac calcified plaque. Patient remains in atrial fibrillation with elevated ventricular rates. No overt evidence of acute decompensated diastolic heart failure. Recommendations: Increase metoprolol succinate to 150 mg twice a day Continue oral digoxin, 125 mcg/day Continue Eliquis anticoagulation Continue PPI (Protonix 40 mg/day), RE: large hiatal hernia, need for anticoagulation Low dose oral furosemide along with supplemental potassium today. Continue telemetry Hopefully, heart rate will be acceptably controlled with the above and the patient can be discharged home on 05/17/2022 Outpatient cardiology follow-up in [place] in 1-2 weeks; office aware, will call patient. Admission and Anticipated Discharge Date Admission Date: May 09, 2022 Supervising Physician Co-Signing Physician Notes Patient is sitting comfortably and has no complaints. Unfortunately she is still in atrial fibrillation with RVR. I agree with the plan as outlined above. She was never really loaded with dig but started on a daily dose. I am going to give her an extra 250 mcg of digoxin now as part of a loading dose and see if this improves her heart rate. Subjective Patient seen and examined. Chart, medications, and telemetry reviewed. No complaints. Slept well. Denies palpitations, shortness of breath, chest pain, orthopnea, PND, edema, dizziness, near syncope, melena, hematochezia, or hematuria. Telemetry: Atrial fibrillation with a rapid ventricular response. No bradycardia. No pauses. No periods of sinus. May 10, 2022 TTE Interpretation Summary ([facility], Dr. Mccarthy): Normal LV chamber size and wall thickness. Normal LV systolic function, EF 55-60%. No segmental LV WMA's. Mild AI. Mild MR and TR. Grade II diastolic dysfunction. Review of Systems Review of Systems: Complete Review of Systems is as stated above, negative, or noncontributory. Physical Exam Physical Exam: General: A&Ox3. NAD. HENT: Normocephalic. Atraumatic. Eyes: PER. Conjunctiva pink, sclera clear. Neck: No carotid bruits. No JVD. Heart: Irregularly irregular at 120 bpm. No murmur. Lungs: Clear to auscultation. Abdomen: +BS. Soft. Nontender. No masses or organomegaly. Extremities: Mild lymphedematous changes. No overt edema. No clubbing. No cyanosis. Limited neurological examination is without focal deficits. Pulses: radial=2/4, posterior tibial=2/4. Results & Data ([facility]) Vital Signs (Past 12 Hours) Vital Signs Temp Pulse Resp BP BP Pulse Ox O2 Del Method 05/16/22 07:21 36.9 C 107 H 16 132/84 97 Room Air 05/16/22 06:54 36.6 C 108 H 19 131/89 96 Room Air 05/16/22 03:54 37.1 C 103 H 20 110/79 96 Room Air 05/15/22 23:01 37.0 C 123 H 20 125/83 95 Room Air Laboratory Results CBC 05/16/22 Range/Units 05:58 WBC 8.55 (4.8-10.8) K/ul RBC 3.70 L (3.93-5.22) M/uL Hgb 11.7 L (12.0-16.0) g/dl Hct 34.1 (34.1-44.9) % Plt Count 197 (130-400) K/uL Intake and Output 05/15/22 05/16/22 05/16/22 22:59 06:59 14:59 Intake Total 150 / 600 150 / 600 Balance 150 / 600 150 / 600 Intake: Oral 150 / 600 150 / 600 Other: # Unmeasured Voids 1 Weight 76.5 kg Weight Measurement Method Standing Scale
[2022-05-16] MEDS ORDERED: POTASSIUM CHLORIDE CRTAB 20 MEQ TABCR PO ONE (10:48)
[2022-05-16] MEDS ORDERED: FUROSEMIDE 20 MG TAB PO ONE (10:48)
[2022-05-16] MEDS ORDERED: DIGOXIN 0.25 MG TAB PO ONE (13:00)
--- NOTE | 2022-05-16 15:58 | Hospitalist Progress Note ---
Date of Service May 16, 2022 Assessment & Plan (1) Atrial fibrillation with rapid ventricular response: Plan: In ER found to be in atrial fibrillation RVR with rate up to 130s No known prior history Afib Patient denies shortness of breath, chest pain, shortness of breath, dizziness TSH, magnesium, potassium WNL. Initial troponin negative In ER Cardizem bolus and drip started, continue Cardizem drip, Start IV heparin, stopped after some hematemesis seen with NG tube. Echo on 05/10 reveals preserved ejection fraction with grade 2 diastolic dysfunction and mild valvular disease. Was placed on home dose atenolol 100 mg daily since that improved heart rate Atenolol discontinued then starting on Metoprolol 75mg BID Rate uncontrolled Metoprolol increased to 150mg BID Continue Eliquis 2.5 mg BID (cardio agreed with the dose) Continue digoxin 0.125mg daily Continue monitor closely (2) SBO (small bowel obstruction): Plan: Has large hiatal hernia. Reported history SBO many years ago treated conservatively. NGT placed and has now been removed am of 05/11 Diet advanced to solid and tolerated well Gen surg has signed off. resolved (3) CKD (chronic kidney disease), stage III: Plan: chronic, stable, at baseline. Monitor renal functions, avoid nephrotoxic agents when possible (4) HTN (hypertension): Plan: chronic, stable. Cont home regimen. (5) TIA (transient ischemic attack): Plan: On Aggrenox at home Prior record review that pt had suspected TIA while was already on Plavix and aspirin and was changed to Aggrenox Hold Aggrenox while in new onset afib and anticoagulation may be reconsidered. Cont ASA 81mg daily. (6) Carotid artery aneurysm: Plan: chronic, stable. Followed with neurology outpatient (7) Colon cancer: Plan: chronic, stable. S/P sigmoid resection in 2001 (8) GERD (gastroesophageal reflux disease): Plan: History hiatal hernia, stable. Continue PPI (9) Anxiety: Plan: Continue lorazepam prn (10) DVT prophylaxis: Plan: On Eliquis 2.5 mg BID Full Code Disposition Discharge home once HR control Admission and Anticipated Discharge Date Admission Date: May 09, 2022 Subjective Pt was seen and examined for follow up of Afib with RVR Sitting in chair with no acute distress watching TV Telemonitor showed Afib with RVR Denies any chest pain, palpitation, dizziness and SOB Review of Systems Review of Systems: All systems reviewed & are unremarkable except as noted in Subjective Physical Exam Physical Exam: General- No acute distress Head- atraumatic Eyes- PERRL, EOMI, ENT- oropharynx clear Neck- supple, no JVD Lungs- clear to auscultation Heart- irregular rhythm; no murmur Abdomen- normal bowel sounds, soft, nontender Extremities- no calf tenderness Neuro- alert, oriented x 3; PERRL, EOMI; no facial palsy; no dysarthria Skin- warm & dry Results & Data Results & Data ([facility]) Vital Signs (Past 12 Hours) Vital Signs Temp Pulse Pulse Resp BP Pulse Ox O2 Del Method 05/16/22 14:48 36.5 C 117 H 18 119/77 96 Room Air 05/16/22 13:07 128 H 05/16/22 12:08 36.5 C 132 H 20 124/77 96 Room Air 05/16/22 07:21 36.9 C 107 H 16 132/84 97 Room Air 05/16/22 06:54 36.6 C 108 H 19 131/89 96 Room Air
[2022-05-16] MEDS: LIDOCAINE 5% 1 PATCH TD SCH (16:56)
[2022-05-16] MEDS: DIGOXIN 0.125 MG TAB PO SCH (16:57)
[2022-05-17 07:31] LABS: Calcium 8.7 mg/dl (8.5-10.1); Creatinine Clr Calc Pharmacy 34.2 ml/min; Est GFR (African American) 53.1 ml/min; Est GFR (Non-African American) 45.8 ml/min; Potassium 3.9 mmol/L (3.5-5.1)
[2022-05-17] MEDS: METOPROLOL SUCC 50MG EXT REL TAB PO SCH (07:53)
[2022-05-17] MEDS: LOSARTAN POTASSIUM 50 MG TAB PO SCH (07:53)
[2022-05-17] MEDS: APIXABAN 2.5 MG TAB PO SCH (07:53)
[2022-05-17] MEDS: PANTOprazole 40 MG TAB PO SCH (07:53)
[2022-05-17] MEDS: LORazepam 1 MG TAB PO PRN (08:16)
[2022-05-17 08:54] LABS: Magnesium 1.7 mg/dl (1.7-2.4)
[2022-05-17] MEDS: LIDOCAINE 5% 1 PATCH TD SCH (09:35)
[2022-05-17] MEDS ORDERED: METOPROLOL SUCC 50MG EXT REL TAB PO STA (09:57)
--- NOTE | 2022-05-17 09:58 | Cardiology Progress Note ---
Date of Service May 17, 2022 Assessment & Plan (1) SBO (small bowel obstruction): (2) Atrial fibrillation with rapid ventricular response: (3) Colon cancer: (4) GERD (gastroesophageal reflux disease): (5) CKD (chronic kidney disease), stage III: (6) Hiatal hernia: Plan Presentation to the [facility] ER on 05/09/2022 with epigastric discomfort, small bowel obstruction. Asymptomatic atrial fibrillation with a rapid ventricular response noted on presentation, of unknown duration. [id number] Score is 7 points for an 86 year old female with hypertension, history of TIA, and extensive aortoiliac calcified plaque. Patient remains in atrial fibrillation with elevated ventricular rates. No overt evidence of acute decompensated diastolic heart failure. Patient declines NATHANAEL and possible attempted cardioversion though will consider outpatient cardioversion if indicated in the future. Recommendations: Increase metoprolol succinate to 200 mg twice a day Continue oral digoxin, 125 mcg/day Increase Eliquis dosing to 5 mg twice a day (86 years of age however serum creatinine 1.08 mg/dL, weight 78.9 Kg) Continue PPI (Protonix 40 mg/day), RE: large hiatal hernia, need for anticoagulation Patient will likely need low dose oral furosemide along with supplemental potassium. If hypotension observed would decrease losartan initially. Outpatient cardiology follow-up in [place] on , May 24, 2022 at 1:30 PM (patient arrival time of 1:15 PM). Admission and Anticipated Discharge Date Admission Date: May 09, 2022 Supervising Physician Co-Signing Physician Notes Supervising Physician Attestation: I have personally performed a history and physical examination on the patient. I agree with the physician health information assistant's findings and plan as documented with the following additions. Subjective: Patient without complaints. Sitting in the bedside chair, stating that she feels well. She had initially presented 8 days ago with complaints of nauseousness and was diagnosed with a small bowel obstruction. Her nausea has completely resolved, and she states that she had a bowel movement today. Telemetry reveals ongoing atrial fibrillation with rapid ventricular response, rates as high as 150 bpm with when she was washing up in the bathroom, 100 to 130 bpm at rest. She notes no subjective symptoms in terms of no subjective palpitations, no sensation of elevated heart rate, no dyspnea on exertion. Exam: Cardiovascular: Irregular rhythm, tachycardic, no murmurs Data: Echocardiogram performed this admission reviewed independently, with normal biventricular systolic function, moderate to severe biatrial enlargement observed. EKG performed 05/10/2022: Atrial fibrillation at 108 bpm with occasional PVCs, right bundle branch block. Assessment and Plan: Despite improvement in her small bowel obstruction, the patient remains in atrial fibrillation with rapid ventricular sponsor however is asymptomatic from a cardiac perspective. We discussed options with regards to treatment, including rhythm control strategy with transesophageal echocardiogram guided cardioversion. At present, patient prefers to continue rate control medication and anticoagulation, and pursue follow-up as an outpatient. Depending upon her clinical progress at time of follow-up, can always have her return as an outpatient for elective direct-current cardioversion after she has been on over 3 weeks of uninterrupted anticoagulation. Patient agreeable to this approach. Patient reportedly had some blood-tinged gastric contents from her nasogastric tube, but this may have been due to trauma from the nasogastric tube itself. Her hemoglobin is stable. And although she is over 78 years old, based on her current creatinine which is less than 1.5 mg/dL, and her weight which is over 60 kg, the appropriate dose of Eliquis for stroke prophylaxis in this case is 5 mg twice daily. Patient stable from a cardiac perspective for discharge. Follow-up appointment already planned. Adin Ac, Subjective Patient seen and examined. Chart, medications, and telemetry reviewed. Back pain is better with the Lidocaine patch. No complaints. Denies palpitations, shortness of breath, chest pain, orthopnea, PND, edema, dizziness, near syncope, melena, hematochezia, or hematuria. Telemetry: Atrial fibrillation/?flutter. Rates overnight were 80-100, up to the 170's when moving around the room. No bradycardia. No pauses. May 10, 2022 TTE Interpretation Summary ([facility], Dr. Mccarthy): Normal LV chamber size and wall thickness. Normal LV systolic function, EF 55-60%. No segmental LV WMA's. Mild AI. Mild MR and TR. Grade II diastolic dysfunction. Left atrial enlargement noted on personal review of the echo. Review of Systems Review of Systems: Complete Review of Systems is as stated above, negative, or noncontributory. Physical Exam Physical Exam: General: A&Ox3. NAD. HENT: Normocephalic. Atraumatic. Eyes: PER. Conjunctiva pink, sclera clear. Neck: No carotid bruits. No JVD. Heart: Irregularly irregular at 110 bpm. No murmur. Lungs: Clear to auscultation. Abdomen: +BS. Soft. Nontender. No masses or organomegaly. Extremities: Mild lymphedematous changes. No overt edema. No clubbing. No cyanosis. Limited neurological examination is without focal deficits. Pulses: radial=2/4, posterior tibial=2/4. Results & Data ([facility]) Vital Signs (Past 12 Hours) Vital Signs Temp Pulse Pulse Resp BP BP Pulse Ox 05/17/22 08:00 05/17/22 07:31 36.6 C 101 H 17 130/71 94 05/17/22 03:12 36.9 C 93 H 18 102/68 98 05/16/22 22:19 123 H 05/16/22 23:23 37.0 C 107 H 18 123/84 95 O2 Del Method 05/17/22 08:00 Room Air 05/17/22 07:31 Room Air 05/17/22 03:12 Room Air 05/16/22 22:19 05/16/22 23:23 Room Air Laboratory Results Comprehensive Metabolic Panel 05/17/22 Range/Units 05:30 Sodium 134 L (136-145) mmol/L Potassium 3.9 (3.5-5.1) mmol/L Chloride 102 (98-107) mmol/L Carbon Dioxide 26 (21-32) mmol/L BUN 14 (6-23) mg/dl Creatinine 1.08 (0.6-1.2) mg/dl Glucose 93 (70-99(Fasting)) mg/dl Calcium 8.7 (8.5-10.1) mg/dl Intake and Output 05/16/22 05/17/22 05/17/22 22:59 06:59 14:59 Intake Total 100 / 660 Output Total 450 / 450 Balance -350 / 210 Intake: Oral 100 / 660 Output: Urine 450 / 450 Other: Other Intake Source Sips # Unmeasured Voids 1 Weight 78.9 kg Weight Measurement Method Built in [facility]
--- NOTE | 2022-05-17 13:38 | Discharge Summary ---
Discharge Summary Date of Service May 17, 2022 Admission HPI Per Admitting Provider Patient is 86-year-old female with PMH HTN, dyslipidemia, CAD, CKD III, GERD, anxiety, carotid aneurysm, hiatal hernia, history of colon CA s/p sigmoid resection in 2001 presented to ER with complaint of epigastric pain x 1 day. C/O nausea and vomiting. Vomited 4-6 times since yesterday. Reports epigastric pain and pressure. Last BM yesterday and reports was loose. Unsure if passing flatus today. Reports history SBO over 30 years ago. Denies fever/chills, diaphoresis, hematemesis, melena, hematochezia, HANNA, dizziness, syncope, vision changes, neck pain, CP, SOB, orthopnea, palpitations, cough, sore throat, choking, otalgia, rhinorrhea, paresthesias, weakness, extremity weakness, extremity edema, rashes, urinary symptoms. Thinks last colonoscopy was in 2017. In ER found to be in a-fib RVR and was started on Cardizem drip. Also found to have SBO. NG tube placed. Principal Dx & Hospital Course #1 = Principal Diagnosis (1) Atrial fibrillation with rapid ventricular response: In ER found to be in atrial fibrillation RVR with rate up to 130s No known prior history Afib Patient denies shortness of breath, chest pain, shortness of breath, dizziness TSH, magnesium, potassium WNL. Initial troponin negative In ER Cardizem bolus and drip started, continue Cardizem drip, Start IV heparin, stopped after some hematemesis seen with NG tube. Echo on 05/10 reveals preserved ejection fraction with grade 2 diastolic dysfunction and mild valvular disease. Was placed on home dose atenolol 100 mg daily since that improved heart rate Atenolol discontinued then starting on Metoprolol 75mg BID Rate uncontrolled Metoprolol increased to 150mg BID Continue Eliquis 2.5 mg BID (cardio agreed with the dose) Continue digoxin 0.125mg daily Continue monitor closely (2) SBO (small bowel obstruction): Has large hiatal hernia. Reported history SBO many years ago treated conservatively. NGT placed and has now been removed am of 05/11 Diet advanced to solid and tolerated well Gen surg has signed off. resolved (3) CKD (chronic kidney disease), stage III: chronic, stable, at baseline. Monitor renal functions, avoid nephrotoxic agents when possible (4) HTN (hypertension): chronic, stable. Cont home regimen. (5) TIA (transient ischemic attack): On Aggrenox at home Prior record review that pt had suspected TIA while was already on Plavix and aspirin and was changed to Aggrenox Hold Aggrenox while in new onset afib and anticoagulation may be reconsidered. Cont ASA 81mg daily. (6) Carotid artery aneurysm: chronic, stable. Followed with neurology outpatient (7) Colon cancer: chronic, stable. S/P sigmoid resection in 2001 (8) GERD (gastroesophageal reflux disease): History hiatal hernia, stable. Continue PPI (9) Anxiety: Continue lorazepam prn (10) DVT prophylaxis: On Eliquis 2.5 mg BID Full Code Disposition Discharge home once HR control Discharge Exam CONSTITUTIONAL: WNWD, vitals as above, generally well-appearing, NAD, sitting in bedside chair EYES: normal conjunctivae, no scleral icterus, ENT: external ear and nose normal, MMM NECK: trachea midline RESPIRATORY: clear to auscultation bilaterally, no crackles, rales or wheezes, normal respiratory effort CARDIOVASCULAR: regular rate and rhythm, S1 and 2 heard without murmurs, gallops or rubs, no JVD, no peripheral edema CHEST: inspection of chest was normal GASTROINTESTINAL: soft, nontender, ND, no guarding MUSCULOSKELETAL: strength 5/5 throughout, head is normocephalic and atraumatic, SKIN: warm and dry NEUROLOGIC: CN 2-12 grossly intact, no sensory deficit, normal cognition, normal speech, no tremor PSYCHIATRIC: alert cooperative and oriented to person, place and time. Updated Medication List Medication Instructions Recorded Confirmed Type aluminum-mag hydroxide-simethicone 10 ml PO DIRECTED PRN 05/09/22 05/09/22 History 200 mg-200 mg-20 mg/5 mL oral susp HEARTBURN/INDIGESTION aspirin 25 mg-dipyridamole 200 mg 1 cap PO BID 05/09/22 05/09/22 History capsule,ext.release 12 hr multiphase atenolol 100 mg tablet 100 mg PO HS 05/09/22 05/09/22 History atorvastatin 20 mg tablet 20 mg PO HS 05/09/22 05/09/22 History cyanocobalamin (vitamin B-12) 1,000 mcg PO DAILY 05/09/22 05/09/22 History 1,000 mcg tablet (Vitamin B-12) felodipine 5 mg tablet,extended 5 mg PO QAM 05/09/22 05/09/22 History release 24 hr furosemide 20 mg tablet 20 mg PO DAILY 05/09/22 05/09/22 History lorazepam 1 mg tablet 1 mg PO TID PRN Anxiety 05/09/22 05/09/22 History losartan 100 mg tablet 100 mg PO DAILY 05/09/22 05/09/22 History ondansetron HCl 4 mg tablet 4 mg PO Q8H PRN NAUSEA/VOMITING 05/09/22 05/09/22 History pantoprazole 40 mg tablet,delayed 40 mg PO QAM 05/09/22 05/09/22 History release apixaban 5 mg tablet (Eliquis) 5 mg PO BID #60 tabs 05/17/22 Rx digoxin 125 mcg (0.125 mg) tablet 0.125 mg PO DAILY@1600 #30 tabs 05/17/22 Rx (Digitek) metoprolol succinate 200 mg 200 mg PO BID #60 tabs 05/17/22 Rx tablet,extended release 24 hr (Toprol XL) Hospital Stay Data Consultations 05/09/22 16:53 ED Decision to Admit Stat 05/09/22 20:30 Consult General Surgery Routine 05/10/22 08:00 Consult Cardiology Routine Diagnostic Imagining Performed 05/09/22 15:03 CT abd pelvis wo con Stat 05/11/22 06:20 CT chest diagnostic wo con Urgent Pending Results Patient Have Any Pending Studies at Discharge: No Discharge Instructions Given to Patient (Per Discharging Provider) Please take all medications as instructed on discharge to follow. You have been placed on a new medication for heart rate called digoxin. This will slow your heart rate down. Additionally, you have been placed on metoprolol succinate which will also cause your heart rate to slow down. It is important to follow-up with your primary care doctor within a week to touch base regarding your new blood pressure and heart rate as a response to these new medications. Your flow to pain and atenolol have been stopped and replaced with a new medications above. You will continue your losartan, however, if your blood pressure goes any lower, this is the first medication we would reduce/stop. You have been diagnosed with a rhythm abnormality called atrial fibrillation which can lead to elevated heart rates. If you notice that your heart rate is elevated or you feel short of breath or have chest pain or any other symptoms that are concerning, please seek immediate medical attention. Please follow-up with your rehabilitation manager as instructed in 1 week. You have been given a blood thinner called Eliquis which will prevent stroke in the setting of atrial fibrillation. This is a blood thinner that can cause bleeding and avoiding drugs like ibuprofen, naproxen, Motrin, Aleve is recommended on a regular basis. It was a pleasure taking care of you! Please call if you have any questions or problems. You can reach a [facility] hospitalist on duty at [facility] 24 hours a day by calling [phone]. Take care of yourself. Perla Simons, [facility]
[2022-05-17] MEDS: DIGOXIN 0.125 MG TAB PO SCH (16:19)
[2022-05-17] MEDS ORDERED: METOPROLOL SUCC 50MG EXT REL TAB PO SCH (21:00)
[2022-05-17] MEDS ORDERED: APIXABAN 5 MG TABLET PO SCH (21:00)
== END 2022-05-17 16:53 | disposition home health service (06) | DRG 389 ==
LOC: ED 14:56 → 2S 17:20 → SUATTDRO 17:20 → 2S 19:36